=== PATIENT | female | born 1995 | race Caucasian/White ===

== ENCOUNTER 2016-03-10 19:05 | Emergency (ER) | payer MEDICAID, OTHER ==
[~2016-03-10] VITALS: Ht 167.6 cm; Wt 57.2 kg
[~2016-03-10 19:05] MED LIST: D50KC PO; IRON
--- OUTSIDE RECORDS SUMMARY | 2016-03-10 19:13 | XMS REPORT ---
Author Author THANG ROB Organization [employer] Address Unknown Phone Unavailable Care Team Providers Care Clay Washer Name Role Phone THANG ROB CP Unavailable Allergies No Known Allergies Problems Problem Type Condition Code Onset Dates Condition Status Assessment Panic disorder with agoraphobia and mild panic attacks F40.01 Active Problem Unspecified osteoporosis 733.00 Active Problem Other disorders of bone and cartilage 733.99 Active Problem Other specified symptom associated with female genital organs 625.8 Active Problem Excessive or frequent menstruation 626.2 Active Problem Panic disorder with agoraphobia and mild panic attacks F40.01 Active Problem Lumbago 724.2 Active Problem Unspecified symptom associated with female genital organs 625.9 Active Problem Disorder of bone and cartilage, unspecified 733.90 Active Problem Unspecified vitamin D deficiency 268.9 Active Medications No Known Medications Procedures Procedure Coding System Code Date Psychotherapy, patient &/family, 30 minutes, established patient CPT-4 66768 Jan 17, 2016 Results No Known Results Summary Purpose eClinicalWorks Submission
[2016-03-10] MEDS ORDERED: PREN-8 PO (19:43)
--- NOTE | 2016-03-10 20:13 | ED Abdominal Pain ---
General Chief Complaint: Abdominal/GI Problems Stated Complaint: ABD PAIN Nursing Triage Note: PT C/O LOWER ABD PAIN. PT REPORTS SHE IS 5 WEEKS . Sepsis Screen: No Definite Risk Source of Information: Patient, RN Notes Reviewed Exam Limitations: No Limitations History of Present Illness Time Seen By Provider: 20:11 Initial Comments Episodic suprapubic abdominal pain x 24 hours. Concerned because she is 5 weeks . Denies and bleeding or discharge and actually pain free presently. Timing/Duration: 24 Hours Severity/Quality: Aching Location: Suprapubic Radiation: No Radiation Activities at Onset: None Modifying Factors: Improves With Other (none) Associated Symptoms: Denies Symptoms Allergies and Home Medications Allergies Coded Allergies: Penicillins (Verified Allergy, Mild, 08/05/12) ibandronate sodium (Verified Allergy, 08/05/12) Home Medications Vit W-Ca,Fe,FA(<1 mg) 1 Each Tablet 1 EACH PO DAILY (Reported) Review of Systems Constitutional: see HPI Gastrointestinal: See HPI Abdominal Pain Genitourinary: See HPI Other (reportedly 5 weeks ) All Other Systems Reviewed Negative Unless Noted: Yes (Negative excepted noted.) Past Hkovmym-Yangwr-Efqnwv Hx Patient Social History Alcohol Use: Denies Use Recreational Drug Use: No Smoking Status: Never a Smoker Recent Foreign Travel: No Contact w/Someone Who Travel: No Recent Infectious Disease Expo: No Recent Hopitalizations: No Physical Abuse Screen: No Sexual Abuse: No Seasonal Allergies Seasonal Allergies: No Surgeries HX Surgeries: Yes (BILAT INGUINAL HERNIAS, TUBES IN EARS) Surgeries: Tonsillectomy Respiratory Hx Respiratory Disorders: No Cardiovascular Hx Cardiac Disorders: No Neurological Hx Neurological Disorders: No Reproductive System : Yes Hx : 1 Hx Reproductive Disorders: No Female Reproductive Disorders: Menstrual Problems Genitourinary Hx Genitourinary Disorders: No Gastrointestinal Hx Gastrointestinal Disorders: No Musculoskeletal Hx Musculoskeletal Disorders: No Endocrine Hx Endocrine Disorders: No HEENT HX ENT Disorders: No Cancer Hx Cancer: No Psychosocial Hx Psychiatric Problems: Yes Behavioral Health Disorders: Anxiety Integumentary HX Skin/Integumentary Disorder: No Blood Transfusions 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) Physical Exam Vital Signs VS - Last 72 Hours, by Label 03/10/16 03/10/16 19:39 22:31 Temp 99.5 99.5 Pulse 88 72 Resp 16 16 B/P 128/69 Pulse Ox 98 Capillary Refill : Less Than 3 Seconds General Appearance: WD/WN no apparent distress Respiratory: no respiratory distress Cardiovascular: regular rate, rhythm Gastrointestinal: non tender soft Rectal: deferred Neurologic/Psychiatric: no motor/sensory deficits alert normal mood/affect oriented x 3 Skin: warm/dry Progress/Results/Core Measures Results/Orders Lab Results Laboratory Tests Test 03/10/16 20:20 03/10/16 20:30 Range/Units Urine Bacteria NONE /HPF Urine Bilirubin NEGATIVE NEGATIVE Urine Casts NONE /LPF Urine Clarity CLEAR Urine Color YELLOW Urine Crystals NONE /LPF Urine Culture Indicated NO Urine Glucose (UA) NEGATIVE NEGATIVE Urine Ketones NEGATIVE NEGATIVE Urine Leukocyte Esterase NEGATIVE NEGATIVE Urine Mucus NEGATIVE /LPF Urine Nitrite NEGATIVE NEGATIVE Urine Protein NEGATIVE NEGATIVE Urine RBC NONE /HPF Urine RBC (Auto) NEGATIVE NEGATIVE Urine Specific [place] 1.010 L 1.016-1.022 Urine Squamous Epithelial Cells 0-2 /HPF Urine Urobilinogen NORMAL NORMAL MG/DL Urine WBC NONE /HPF Urine pH 6.5 5-9 Alanine Aminotransferase (ALT/SGPT) 18 0-55 U/L Albumin 4.7 H 3.2-4.5 G/DL Alkaline Phosphatase 82 40-136 U/L Anion Gap 12 5-14 MMOL/L Aspartate Amino Transf (AST/SGOT) 17 5-34 U/L BUN/Creatinine Ratio 14 Basophils # (Auto) 0.0 0.0-0.1 10^3/uL Basophils (%) (Auto) 0 0-10 % Blood Urea Nitrogen 13 7-18 MG/DL Calcium Level 9.5 8.5-10.1 MG/DL Carbon Dioxide Level 18 L 21-32 MMOL/L Chloride Level 106 98-107 MMOL/L Creatinine 0.95 0.60-1.30 MG/DL Eosinophils # (Auto) 0.1 0.0-0.3 10^3/uL Eosinophils (%) (Auto) 1 0-10 % Estimat Glomerular Filtration Rate > 60 Glucose Level 94 70-105 MG/DL Hematocrit 42 35-52 % Hemoglobin 14.4 11.5-16.0 G/DL Human Chorionic Gonadotropin, Quant 5115 H <5 MIU/ML Lymphocytes # (Auto) 1.9 1.0-4.0 X 10^3 Lymphocytes (%) (Auto) 21 12-44 % Mean Corpuscular Hemoglobin 29 25-34 PG Mean Corpuscular Hemoglobin Concent 34 32-36 G/DL Mean Corpuscular Volume 84 80-99 FL Mean Platelet Volume 11.5 H 7.4-10.4 FL Monocytes # (Auto) 0.9 0.0-1.0 X 10^3 Monocytes (%) (Auto) 9 0-12 % Neutrophils # (Auto) 6.5 1.8-7.8 X 10^3 Neutrophils (%) (Auto) 69 42-75 % Platelet Count 245 130-400 10^3/uL Potassium Level 3.7 3.6-5.0 MMOL/L Red Blood Count 4.98 4.35-5.85 10^6/uL Red Cell Distribution Width 12.9 10.0-14.5 % Sodium Level 136 135-145 MMOL/L Total Bilirubin 0.2 0.1-1.0 MG/DL Total Protein 7.6 6.4-8.2 G/DL White Blood Count 9.4 4.3-11.0 10^3/uL My Orders Orders-KEITH SOLER DO Cbc With Automated Diff (03/10/16 20:10) Comprehensive Metabolic Panel (03/10/16 20:10) Ua Culture If Indicated (03/10/16 20:10) Hcg,Quantitative (03/10/16 20:25) Us Ob<14 Wks Sngle W/Transvag (03/10/16 21:26) Vital Signs/I&O Vital Sign - Last 12Hours 03/10/16 03/10/16 19:39 22:31 Temp 99.5 99.5 Pulse 88 72 Resp 16 16 B/P 128/69 Pulse Ox 98 Blood Pressure Mean: 88 Diagnostic Imaging Diagonstic Imaging: Ultrasound Plain Films/CT/US/NM/MRI: pelvis (IUP @ 5 weeks; Nothing acute) Departure Impression Impression: Primary Impression: Abdominal pain Additional Impression: IUP @ 5 weeks Disposition: 01 HOME, SELF-CARE Condition: Stable Departure-Patient Inst. Decision time for Depature: 22:26 Referrals: [facility] (PCP/Family) Primary Care Physician Patient Instructions: Activity During KETIH SOLER DO Mar 10, 2016 20:13
[2016-03-10 20:31] LABS: BILIRUBIN,URINE NEGATIVE (NEGATIVE); KETONES,URINE NEGATIVE (NEGATIVE); LEUKOCYTE ESTERASE ,URINE NEGATIVE (NEGATIVE); NITRITE,URINE NEGATIVE (NEGATIVE); PH,URINE 6.5 (5-9); PROTEIN,URINE NEGATIVE (NEGATIVE); UROBILINOGEN,URINE NORMAL (NORMAL)
[2016-03-10 20:40] LABS: SQUAMOUS EPITHELIAL CELL,UR 0-2 /HPF
[2016-03-10 20:40] LABS: BASOPHILS % (AUTO) 0 % (0-10); EOSINOPHILS # (AUTO) 0.1 10^3/uL (0.0-0.3); EOSINOPHILS % (AUTO) 1 % (0-10); LYMPHOCYTES # (AUTO) 1.9 X 10^3 (1.0-4.0); LYMPHOCYTES % (AUTO) 21 % (12-44); MEAN CORPUSCULAR HEMOGLOBIN 29 PG (25-34); MEAN CORPUSCULAR HGB CONC 34 G/DL (32-36); MEAN CORPUSCULAR VOLUME 84 FL (80-99); MEAN PLATELET VOLUME 11.5 FL (7.4-10.4); MONOCYTES # (AUTO) 0.9 X 10^3 (0.0-1.0); MONOCYTES % (AUTO) 9 % (0-12); NEUTROPHILS # (AUTO) 6.5 X 10^3 (1.8-7.8); NEUTROPHILS % (AUTO) 69 % (42-75); PLATELET COUNT 245 10^3/uL (130-400); RED BLOOD COUNT 4.98 10^6/uL (4.35-5.85); RED CELL DISTRIBUTION WIDTH 12.9 % (10.0-14.5); WHITE BLOOD COUNT 9.4 10^3/uL (4.3-11.0)
[2016-03-10 20:56] LABS: ALANINE AMINOTRANSFERASE 18 U/L (0-55); ALBUMIN 4.7 G/DL (3.2-4.5); ANION GAP 12 MMOL/L (5-14); ASPARTATE AMINO TRANSFERASE 17 U/L (5-34); BILIRUBIN,TOTAL 0.2 MG/DL (0.1-1.0); BLOOD UREA NITROGEN 13 MG/DL (7-18); BUN/CREATININE RATIO 14; CALCIUM 9.5 MG/DL (8.5-10.1); CARBON DIOXIDE 18 MMOL/L (21-32); CHLORIDE 106 MMOL/L (98-107); CREATININE SERUM 0.95 MG/DL (0.60-1.30); GFR ESTIMATED > 60; GLUCOSE 94 MG/DL (70-105); POTASSIUM 3.7 MMOL/L (3.6-5.0); SODIUM 136 MMOL/L (135-145); TOTAL PROTEIN 7.6 G/DL (6.4-8.2)
[2016-03-10 22:31] VITALS: BP 125/64
--- NOTE | 2016-03-11 06:18 | Diagnostic Imaging Report ---
EXAM: US OB<14 WKS SNGLE W/TRANSVAG INDICATION: Lower abdominal pain and cramping. COMPARISON: None. FINDINGS: There is gestational sac with a healed sac present. No pole is identified at this time. The right ovary measures 2.8 x 1.8 x 1.9 cm and contains a couple of normal appearing follicles. The left ovary is not visualized. No adnexal masses. No free fluid. IMPRESSION: Gestational sac with a yolk sac present corresponding to a 5 week, one day intrauterine . Dictated by: Dictated on workstation # [id number]
== END 2016-03-10 22:31 | disposition home or self-care (01) ==
LOC: EDUNIT# 19:05 → ER 19:08
DX: O26.891 Other specified pregnancy related conditions, first trimester (principal); R10.84 Generalized abdominal pain; Z3A.01 Less than 8 weeks gestation of pregnancy
CPT/HCPCS: 36415; 76801; 76817; 80053; 81000; 84702; 85025

== ENCOUNTER → 2016-04-10 | Outpatient (CLI) | payer MEDICAID ==
[~2016-04-10] MED LIST changes: +PREN-8 PO; +PROM25TA14 PO
--- NOTE | 2016-04-10 16:40 | Diagnostic Imaging Report ---
INDICATION: Evaluate size and dates. COMPARISON: 03/10/2016. DISCUSSION: Transabdominal sonographic evaluation of the pelvis was performed. Single live intrauterine at 9 weeks 6 days by today's sonographic measurements. EDC by today's ultrasound is 11/07/2016. heart rate measures 155 beats per minute. [place]-rump length measures 29.17 mm. Neither ovary is visualized. No abnormal adnexal mass or fluid. IMPRESSION: 1. Single live intrauterine at 9 weeks 6 days by sonographic measurements. Dictated by: Dictated on workstation # [id number]
== END ==
LOC: RAD 15:52
PROVIDERS: ATTEND Family Medicine
DX: Z34.01 Encounter for supervision of normal first pregnancy, first trimester (principal); Z3A.09 9 weeks gestation of pregnancy
CPT/HCPCS: 76801

== ENCOUNTER 2016-04-28 13:33 | Outpatient (RCR) | payer MEDICAID, OTHER ==
[~2016-04-28 13:33] MED LIST changes: -PROM25TA14 PO
[2016-04-28 14:48] LABS: BASOPHILS % (AUTO) 0 % (0-10); EOSINOPHILS # (AUTO) 0.1 10^3/uL (0.0-0.3); EOSINOPHILS % (AUTO) 1 % (0-10); LYMPHOCYTES # (AUTO) 1.9 X 10^3 (1.0-4.0); LYMPHOCYTES % (AUTO) 22 % (12-44); MEAN CORPUSCULAR HEMOGLOBIN 29 PG (25-34); MEAN CORPUSCULAR HGB CONC 35 G/DL (32-36); MEAN CORPUSCULAR VOLUME 83 FL (80-99); MEAN PLATELET VOLUME 11.4 FL (7.4-10.4); MONOCYTES # (AUTO) 0.6 X 10^3 (0.0-1.0); MONOCYTES % (AUTO) 7 % (0-12); NEUTROPHILS # (AUTO) 5.9 X 10^3 (1.8-7.8); NEUTROPHILS % (AUTO) 70 % (42-75); PLATELET COUNT 209 10^3/uL (130-400); RED BLOOD COUNT 4.71 10^6/uL (4.35-5.85); RED CELL DISTRIBUTION WIDTH 13.6 % (10.0-14.5); WHITE BLOOD COUNT 8.4 10^3/uL (4.3-11.0)
[2016-04-28 15:06] LABS: PROTHROMBIN TIME PATIENT 12.6 SEC (12.2-14.7)
[2016-04-28 15:23] LABS: ALANINE AMINOTRANSFERASE 27 U/L (0-55); ALBUMIN 4.4 G/DL (3.2-4.5); ANION GAP 9 MMOL/L (5-14); ASPARTATE AMINO TRANSFERASE 21 U/L (5-34); BILIRUBIN,TOTAL 0.4 MG/DL (0.1-1.0); BLOOD UREA NITROGEN 6 MG/DL (7-18); BUN/CREATININE RATIO 9; CARBON DIOXIDE 23 MMOL/L (21-32); CHLORIDE 106 MMOL/L (98-107); CREATININE SERUM 0.69 MG/DL (0.60-1.30); GFR ESTIMATED > 60; GLUCOSE 96 MG/DL (70-105); POTASSIUM 3.9 MMOL/L (3.6-5.0); SODIUM 138 MMOL/L (135-145); TOTAL PROTEIN 7.1 G/DL (6.4-8.2)
[2016-05-13] MEDS ORDERED: PROM25TA14 PO (18:47)
[2016-07-27] MEDS ORDERED: CALC-823 PO (19:24)
[2016-07-27] MEDS ORDERED: ERGO400T3 PO (19:24)
== END 2016-07-27 | disposition home or self-care (01) ==
LOC: ONC 13:33
PROVIDERS: ATTEND Internal Medicine Hematology & Oncology
DX: O99.111 Other diseases of the blood and blood-forming organs and certain disorders involving the immune mechanism complicating pregnancy, first trimester (principal); D69.1 Qualitative platelet defects; Z3A.12 12 weeks gestation of pregnancy
CPT/HCPCS: 36415; 80053; 82306; 82728; 83540; 85002; 85025; 85610; 85730; 99214

== ENCOUNTER 2016-05-13 16:50 | Emergency (ER) | payer MEDICAID ==
[~2016-05-13] VITALS: Ht 167.6 cm; Wt 56.7 kg
[2016-05-13] MEDS ORDERED: diphenhydrAMINE 50 MG/ML INJ (BENADRYL) IVP ONE (17:30)
[2016-05-13] MEDS ORDERED: PROCHLORPERAZINE 10 MG/2ML INJ (COMPAZINE) IV ONE (17:30)
[2016-05-13] MEDS ORDERED: NS IV 1000 ML 1,000 ML IV SCH (17:30)
--- NOTE | 2016-05-13 17:36 | ED Headache ---
General Chief Complaint: Head/Cervical Problems Stated Complaint: HEADACHE Nursing Triage Note: PT REPORTS MIGRAINE ACCOMPANIED BY N/V SINCE THURSDAY. PT REPORTS SHE IS 14 WEEKS . SHE STATES SHE HAS BEEN TAKING TYLENOL, LAST DOSE AT 1600. Nursing Sepsis Screen: No Definite Risk Source: patient (TONE CARRILLO MD) History of Present Illness Time seen by provider: 17:33 Initial Comments The patient is a 21-year-old white female who is 14 weeks . She reports that she has had migraines in the past. Today she has a pain localized in the forehead above the right eye. There is no photophobia. She reports she normally doesn't have nausea but does so today. Timing/Duration: 1 week Severity/Quality: moderate Location: frontal Prior Headaches/Recent Trauma: occasional headaches Associated Symptoms: nausea/vomiting (TONE CARRILLO MD) Allergies and Home Medications Allergies Coded Allergies: Penicillins (Verified Allergy, Mild, 08/05/12) ibandronate sodium (Verified Allergy, 08/05/12) Home Medications Vit W-Ca,Fe,FA(<1 mg) 1 Each Tablet 1 EACH PO DAILY (Reported) Constitutional: see HPI Eyes: No Symptoms Reported Ears, Nose, Mouth, Throat: no symptoms reported Respiratory: no symptoms reported Cardiovascular: no symptoms reported Gastrointestinal: no symptoms reported Genitourinary: no symptoms reported Musculoskeletal: no symptoms reported Skin: no symptoms reported Psychiatric/Neurological: No Symptoms Reported (TONE CARRILLO MD) Past Ricfjvy-Lvgfou-Lmcoae Hx Patient Social History Alcohol Use: Denies Use Recreational Drug Use: No Smoking Status: Never a Smoker 2nd Hand Smoke Exposure: No Recent Foreign Travel: No Contact w/Someone Who Travel: No Recent Infectious Disease Expo: No Recent Hopitalizations: No (TONE CARRILLO MD) Seasonal Allergies Seasonal Allergies: No (TONE CARRILLO MD) Surgeries HX Surgeries: Yes (BILAT INGUINAL HERNIAS, TUBES IN EARS) Surgeries: Tonsillectomy (TONE CARRILLO MD) Respiratory Hx Respiratory Disorders: No (TONE CARRILLO MD) Cardiovascular Hx Cardiac Disorders: No (TONE CARRILLO MD) Neurological Hx Neurological Disorders: No (TONE CARRILLO MD) Reproductive System Hx Reproductive Disorders: No Female Reproductive Disorders: Menstrual Problems (TONE CARRILLO MD) Genitourinary Hx Genitourinary Disorders: No (TONE CARRILLO MD) Gastrointestinal Hx Gastrointestinal Disorders: No (TONE CARRILLO MD) Musculoskeletal Hx Musculoskeletal Disorders: No (TONE CARRILLO MD) Endocrine Hx Endocrine Disorders: No (TONE CARRILLO MD) HEENT HX ENT Disorders: No (TONE CARRILLO MD) Cancer Hx Cancer: No (TONE CARRILLO MD) Psychosocial Hx Psychiatric Problems: Yes Behavioral Health Disorders: Anxiety (TONE CARRILLO MD) Integumentary HX Skin/Integumentary Disorder: No (TONE CARRILLO MD) Blood Transfusions 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) (TONE CARRILLO MD) Physical Exam Vital Signs Vital Sign - Last 12Hours 05/13/16 17:17 Temp 98.4 Pulse 70 Resp 18 B/P 128/74 Pulse Ox 99 O2 Delivery Room Air (JARRETT FRIEDMAN MD) Vital Signs Capillary Refill : Less Than 3 Seconds (TONE CARRILLO MD) General Appearance: mild distress HEENT: normal ENT inspection Cardiovascular: normal peripheral pulses regular rate, rhythm no edema no gallop no JVD no murmur Respiratory: chest non-tender lungs clear normal breath sounds no respiratory distress no accessory muscle use Gastrointestinal: normal bowel sounds non tender soft no organomegaly no pulsatile mass Back: normal inspection no CVA tenderness no vertebral tenderness Extremities: normal range of motion non-tender normal inspection no pedal edema no calf tenderness normal capillary refill pelvis stable Psychiatric: alert oriented x 3 Crainal Nerves: normal hearing normal speech PERRL Coordination/Gait: normal finger to nose normal gait Motor/Sensory: no motor deficit no sensory deficit no pronator drift negative Babinski's sign Skin: normal color warm/dry Lymphatic: no adenopathy (TONE CARRILLO MD) Progress/Results/Core Measures Results/Orders Lab Results Laboratory Tests Test 05/13/16 15:50 Range/Units Alanine Aminotransferase (ALT/SGPT) 33 0-55 U/L Albumin 4.2 3.2-4.5 G/DL Alkaline Phosphatase 52 40-136 U/L Anion Gap 13 5-14 MMOL/L Aspartate Amino Transf (AST/SGOT) 25 5-34 U/L BUN/Creatinine Ratio 9 Basophils # (Auto) 0.0 0.0-0.1 10^3/uL Basophils (%) (Auto) 0 0-10 % Blood Urea Nitrogen 6 L 7-18 MG/DL Calcium Level 9.5 8.5-10.1 MG/DL Carbon Dioxide Level 20 L 21-32 MMOL/L Chloride Level 105 98-107 MMOL/L Creatinine 0.68 0.60-1.30 MG/DL Eosinophils # (Auto) 0.1 0.0-0.3 10^3/uL Eosinophils (%) (Auto) 1 0-10 % Estimat Glomerular Filtration Rate > 60 Glucose Level 84 70-105 MG/DL Hematocrit 41 35-52 % Hemoglobin 14.4 11.5-16.0 G/DL Lymphocytes # (Auto) 1.2 1.0-4.0 X 10^3 Lymphocytes (%) (Auto) 13 12-44 % Mean Corpuscular Hemoglobin 30 25-34 PG Mean Corpuscular Hemoglobin Concent 35 32-36 G/DL Mean Corpuscular Volume 84 80-99 FL Mean Platelet Volume 11.4 H 7.4-10.4 FL Monocytes # (Auto) 0.6 0.0-1.0 X 10^3 Monocytes (%) (Auto) 6 0-12 % Neutrophils # (Auto) 7.5 1.8-7.8 X 10^3 Neutrophils (%) (Auto) 80 H 42-75 % Platelet Count 193 130-400 10^3/uL Potassium Level 3.8 3.6-5.0 MMOL/L Red Blood Count 4.88 4.35-5.85 10^6/uL Red Cell Distribution Width 13.4 10.0-14.5 % Sodium Level 138 135-145 MMOL/L Total Bilirubin 0.5 0.1-1.0 MG/DL Total Protein 7.3 6.4-8.2 G/DL White Blood Count 9.3 4.3-11.0 10^3/uL (JARRETT FRIEDMAN MD) Medications Given in ED Current Medications Medications Dose Ordered Sig/Kraig Route Start Time Stop Time Status Last Admin Dose Admin Diphenhydramine HCl 25 mg ONCE ONCE IVP 05/13/16 17:30 05/13/16 17:31 DC 05/13/16 18:00 25 MG Prochlorperazine Edisylate 5 mg ONCE ONCE IV 05/13/16 17:30 3/7/17 17:31 DC 05/13/16 18:00 5 MG (JARRETT FRIEDMAN MD) Vital Signs/I&O Vital Sign - Last 12Hours 05/13/16 17:17 Temp 98.4 Pulse 70 Resp 18 B/P 128/74 Pulse Ox 99 O2 Delivery Room Air (JARRETT FRIEDMAN MD) Blood Pressure Mean: 92 Progress Note : Time: 18:44 Progress Note Patient is feeling markedly improved after treatment. IV fluids are nearly complete. labs are unremarkable. Plan is for dismissal home with a prescription of Phenergan. (JARRETT FRIEDMAN MD) Departure Impression Impression: Primary Impression: Migraine headache Qualified Code: G43.909 - Migraine, unspecified, not intractable, without status migrainosus Additional Impressions: Nausea headache in first trimester Disposition: HOME, SELF-CARE Condition: Improved Departure-Patient Inst. Decision time for Depature: 18:46 (JARRETT FRIEDMAN MD) Referrals: ISAAK STEPHEN MD (PCP/Family) Primary Care Physician Patient Instructions: Migraine Headache (DC) Add. Discharge Instructions: Drink plenty of clear liquids. You may continue taking Tylenol for headaches. Rest in a quiet, calm environment for the remainder of the evening. Use Phenergan (promethazine) as prescribed for nausea. Return to care if symptoms worsen. All discharge instructions reviewed with patient and/or family. Voiced understanding. Scripts Promethazine HCl (Promethazine Tablet)25 Mg [id number] Mg PO Q6H PRN NAUSEA/ VOMITING #10 TAB Prov:JARRETT FRIEDMAN MD 05/13/16 TONE CARRILLO MD May 13, 2016 17:36 JARRETT FRIEDMAN MD May 13, 2016 18:48
[2016-05-13 18:17] LABS: BASOPHILS % (AUTO) 0 % (0-10); EOSINOPHILS # (AUTO) 0.1 10^3/uL (0.0-0.3); EOSINOPHILS % (AUTO) 1 % (0-10); LYMPHOCYTES # (AUTO) 1.2 X 10^3 (1.0-4.0); LYMPHOCYTES % (AUTO) 13 % (12-44); MEAN CORPUSCULAR HEMOGLOBIN 30 PG (25-34); MEAN CORPUSCULAR HGB CONC 35 G/DL (32-36); MEAN CORPUSCULAR VOLUME 84 FL (80-99); MEAN PLATELET VOLUME 11.4 FL (7.4-10.4); MONOCYTES # (AUTO) 0.6 X 10^3 (0.0-1.0); MONOCYTES % (AUTO) 6 % (0-12); NEUTROPHILS # (AUTO) 7.5 X 10^3 (1.8-7.8); NEUTROPHILS % (AUTO) 80 % (42-75); PLATELET COUNT 193 10^3/uL (130-400); RED BLOOD COUNT 4.88 10^6/uL (4.35-5.85); RED CELL DISTRIBUTION WIDTH 13.4 % (10.0-14.5); WHITE BLOOD COUNT 9.3 10^3/uL (4.3-11.0)
[2016-05-13 18:40] LABS: ALANINE AMINOTRANSFERASE 33 U/L (0-55); ALBUMIN 4.2 G/DL (3.2-4.5); ANION GAP 13 MMOL/L (5-14); ASPARTATE AMINO TRANSFERASE 25 U/L (5-34); BILIRUBIN,TOTAL 0.5 MG/DL (0.1-1.0); BLOOD UREA NITROGEN 6 MG/DL (7-18); BUN/CREATININE RATIO 9; CALCIUM 9.5 MG/DL (8.5-10.1); CARBON DIOXIDE 20 MMOL/L (21-32); CHLORIDE 105 MMOL/L (98-107); CREATININE SERUM 0.68 MG/DL (0.60-1.30); GFR ESTIMATED > 60; GLUCOSE 84 MG/DL (70-105); POTASSIUM 3.8 MMOL/L (3.6-5.0); SODIUM 138 MMOL/L (135-145); TOTAL PROTEIN 7.3 G/DL (6.4-8.2)
[2016-05-13] MEDS ORDERED: PROM25TA14 PO (18:47)
[2016-05-13 18:58] VITALS: BP 128/74
== END 2016-05-13 18:58 | disposition home or self-care (01) ==
LOC: EDUNIT# 16:50 → ER 16:52
DX: G43.909 Migraine, unspecified, not intractable, without status migrainosus (principal); Z3A.14 14 weeks gestation of pregnancy
CPT/HCPCS: 36415; 80053; 85025; 96361; 96374; 96375

== ENCOUNTER → 2016-06-27 | Outpatient (CLI) | payer MEDICAID ==
[~2016-06-27] MED LIST changes: +PROM25TA14 PO
--- NOTE | 2016-06-27 16:28 | Diagnostic Imaging Report ---
INDICATION: survey. FINDINGS: There is a single live intrauterine fetus. Fetus is currently vertex and active. heart rate of 146 beats per minute. The amniotic fluid index is normal. Placenta is anterior and not low. Cervical length of 3.8 cm. anatomical survey was somewhat limited due to position. The spine was not well surveyed. Also umbilical cord insertion was not visualized. Three-vessel cord is present. Biometric measurements are BPD 4.68 cm, head circumference 18.14 cm, abdominal circumference 15.14 cm, and femur length 3.5 cm. Estimated weight of 368 g. IMPRESSION: A 21 weeks live intrauterine by previous ultrasound. There has been normal growth in the interim. No abnormalities are demonstrated however limited imaging of the spine and cord insertion, as described above. Dictated by: Dictated on workstation # [id number]
== END ==
LOC: RAD 14:56
PROVIDERS: ATTEND Obstetrics & Gynecology
DX: Z36 Encounter for antenatal screening of mother (principal)
CPT/HCPCS: 76805; 76817

== ENCOUNTER 2016-07-27 17:55 | Outpatient (CLI) | payer MEDICAID ==
[~2016-07-27] VITALS: Ht 165.1 cm; Wt 61.5 kg
[2016-07-27] MEDS ORDERED: CITRIC ACID/SOB CIT (BICITRA) 30 ML UDC ONE (18:48)
[2016-07-27] MEDS ORDERED: CITRIC ACID/SOB CIT (BICITRA) 30 ML UDC PO ONE (19:00)
[2016-07-27 19:19] LABS: BILIRUBIN,URINE NEGATIVE (NEGATIVE); KETONES,URINE NEGATIVE (NEGATIVE); LEUKOCYTE ESTERASE ,URINE 1+ (NEGATIVE); NITRITE,URINE NEGATIVE (NEGATIVE); PH,URINE 7 (5-9); PROTEIN,URINE NEGATIVE (NEGATIVE); UROBILINOGEN,URINE NORMAL (NORMAL)
[2016-07-27] MEDS ORDERED: CALC-823 PO (19:24)
[2016-07-27] MEDS ORDERED: ERGO400T3 PO (19:24)
[2016-07-27 19:35] LABS: BASOPHILS % (AUTO) 0 % (0-10); EOSINOPHILS % (AUTO) 0 % (0-10); LYMPHOCYTES # (AUTO) 1.2 X 10^3 (1.0-4.0); LYMPHOCYTES % (AUTO) 8 % (12-44); MEAN CORPUSCULAR HEMOGLOBIN 30 PG (25-34); MEAN CORPUSCULAR HGB CONC 34 G/DL (32-36); MEAN CORPUSCULAR VOLUME 89 FL (80-99); MEAN PLATELET VOLUME 11.4 FL (7.4-10.4); MONOCYTES # (AUTO) 0.8 X 10^3 (0.0-1.0); MONOCYTES % (AUTO) 5 % (0-12); NEUTROPHILS # (AUTO) 14.4 X 10^3 (1.8-7.8); NEUTROPHILS % (AUTO) 88 % (42-75); PLATELET COUNT 182 10^3/uL (130-400); RED BLOOD COUNT 4.68 10^6/uL (4.35-5.85); RED CELL DISTRIBUTION WIDTH 12.8 % (10.0-14.5); WHITE BLOOD COUNT 16.4 10^3/uL (4.3-11.0)
[2016-07-27 19:48] LABS: BAND NEUTROPHILS 18 %; BASOPHILS % (MANUAL) 0 %; EOSINOPHILS % (MANUAL) 0 %; LYMPHOCYTES % (MANUAL) 8 %; METAMYELOCYTES % 1 %; NEUTROPHILS % (MANUAL) 71 %
--- NOTE | 2016-07-28 11:53 | Physician Query-Final Dx ---
KARENA NIX 07/28/16 1153: Clinic Account Progress/Dx Physician Query: Please give diagnosis Date of Service July 27, 2016 at 17:55 HORTENSIA JAIN MD 07/29/16 0609: Clinic Account Progress/Dx DIAGNOSIS: Diagnosis GERD KARENA NIX July 28, 2016 11:53 HORTENSIA JAIN MD July 29, 2016 06:09
== END 2016-07-27 19:59 | disposition home or self-care (01) ==
LOC: WSo 17:55 → LDRP 17:55 → WSo 19:59
PROVIDERS: ATTEND Obstetrics & Gynecology
DX: O99.612 Diseases of the digestive system complicating pregnancy, second trimester (principal); K21.9 Gastro-esophageal reflux disease without esophagitis; Z3A.25 25 weeks gestation of pregnancy
CPT/HCPCS: 36415; 81000; 85007; 85027; 87088; 99214

== ENCOUNTER → 2016-08-08 | Outpatient (CLI) | payer MEDICAID ==
[~2016-08-08] MED LIST changes: +CALC-823 PO; +ERGO400T3 PO
--- NOTE | 2016-08-08 15:21 | Diagnostic Imaging Report ---
INDICATION: Followup spine and cord insertion. TECHNIQUE: Multiple real-time grayscale images were obtained over the gravid uterus. COMPARISON: 06/27/2016. FINDINGS: Transabdominal sonographic evaluation of the gravid uterus was performed. Single live intrauterine is again demonstrated. Gestational age by the first ultrasound is 29 weeks 0 days. EDC is 11/07/2016. presentation is breech. Normal amniotic fluid index. Grade 1 placenta is located anteriorly with no placenta previa. heart rate measures 135 beats per minute. Good visualization of the umbilical cord insertion on today's exam. The entire spine is still not well visualized due to positioning. Recommend continued short-term sonographic followup. gender is female. IMPRESSION: Single live intrauterine . There was good visualization of the cord insertion on today's exam which appears within normal limits. Full visualization of the spine is still limited due to positioning. Recommend continued sonographic followup. Dictated by: Dictated on workstation # [id number]
== END ==
LOC: RAD 12:51
PROVIDERS: ATTEND Obstetrics & Gynecology
DX: Z36 Encounter for antenatal screening of mother (principal); Z3A.29 29 weeks gestation of pregnancy
CPT/HCPCS: 76816

== ENCOUNTER → 2016-08-22 | Outpatient (CLI) | payer MEDICAID ==
--- NOTE | 2016-08-22 13:18 | Diagnostic Imaging Report ---
INDICATION: Followup for survey of spine. TECHNIQUE: Multiple real-time grayscale images were obtained over the gravid uterus. COMPARISON: 08/08/2016 FINDINGS: There is a single live intrauterine fetus present. The fetus is vertex. Placenta remains anterior and not low. Amniotic fluid index is 10 cm. heart rate of 142 beats per minute. Limited survey was performed. spine is well-visualized with the fetus currently in a prone position. IMPRESSION: 1. Single live intrauterine fetus in vertex presentation. 2. The spine is well visualized today and appears normal. Dictated by: Dictated on workstation # [id number]
== END ==
LOC: RAD 12:36
PROVIDERS: ATTEND Obstetrics & Gynecology
DX: Z36 Encounter for antenatal screening of mother (principal); Z3A.00 Weeks of gestation of pregnancy not specified
CPT/HCPCS: 76816

== ENCOUNTER 2016-11-06 19:02 | Inpatient (IN) | payer MEDICAID ==
[2016-11-06] VITALS (9 sets, daily range): BP systolic 101–132; BP diastolic 55–82
[~2016-11-06] VITALS: Ht 165.1 cm; Wt 73.7 kg
--- OUTSIDE RECORDS SUMMARY | 2016-11-06 19:07 | XMS REPORT ---
Author Author THANG ROB Organization [employer] Address Unknown Phone Unavailable Care Team Providers Care Photography Colorist Name Role Phone THANG ROB CP Unavailable [...] patient &/family, 30 minutes, established patient CPT-4 16172 Jan 17, 2016 Results No Known Results Summary Purpose [employer] Submission
--- OUTSIDE RECORDS SUMMARY | 2016-11-06 19:08 | XMS REPORT ---
Author Author THANG ROB Organization [facility] Address [address] [place] [address] Care Team Providers Care Goggles Assembler Name Role Phone THANG ROB Unavailable PROBLEMS Type Condition ICD9-CM Code [id number] Code Onset Dates Condition Status SNOMED Code Problem Other disorders of bone and cartilage 733.99 Active 52101638 Problem Unspecified symptom associated with female genital organs 625.9 Active 002490714 Problem Unspecified osteoporosis 733.00 Active 96877061 Assessment Panic disorder with agoraphobia and mild panic attacks F40.01 Nov, Active 00461147 Problem Panic disorder with agoraphobia and mild panic attacks F40.01 Active 41221873 Problem Other specified symptom associated with female genital organs 625.8 Active Problem Unspecified vitamin D deficiency 268.9 Active 25083431 Problem Lumbago 724.2 Active 495608980 Problem Excessive or frequent menstruation 626.2 Active 904630313 Problem Disorder of bone and cartilage, unspecified 733.90 Active 23977619 ALLERGIES Unknown Allergies SOCIAL HISTORY No smoking Hx information available PLAN OF CARE VITAL SIGNS MEDICATIONS Unknown Medications RESULTS No Results PROCEDURES Procedure Date Ordered Related Diagnosis Body Site Psychotherapy, patient &/family, 45 minutes, established patient Nov 19, 2015 IMMUNIZATIONS No Known Immunizations
--- OUTSIDE RECORDS SUMMARY | 2016-11-06 19:08 | XMS REPORT ---
Author Author CARMELA LATHAM [facility] [employer] Address Unknown Phone Unavailable Care Team Providers Care Mail Rider Name Role Phone CARMELA LATHAM CP Unavailable Allergies, Adverse Reactions, Alerts Substance Reaction Event Type Penicillin V Potassium Info Not Available Drug Allergy Boniva Info Not Available Drug Allergy Problems Problem Type Condition Code Onset Dates Condition Status Problem Lumbago 724.2 Active Problem Disorder of bone and cartilage, unspecified 733.90 Active Problem Unspecified vitamin D deficiency 268.9 Active Problem Panic disorder F41.0 Active Problem Agoraphobia F40.00 Active Problem Panic disorder with agoraphobia and mild panic attacks F40.01 Active Problem Excessive or frequent menstruation 626.2 Active Problem Anxiety state, unspecified 300.00 Active Problem Generalized anxiety disorder F41.1 Active Problem Other specified symptom associated with female genital organs 625.8 Active Assessment Panic disorder with agoraphobia and mild panic attacks F40.01 Active Problem Other disorders of bone and cartilage 733.99 Active Problem Unspecified osteoporosis 733.00 Active Problem Unspecified symptom associated with female genital organs 625.9 Active Medications Medication Code System Code Instructions Start Date End Date Status Dosage Vitamin D [facility] [address]-25 1000 UNIT Orally Once a day 1 tablet Propranolol HCl [facility] [address]-18 10 mg Orally Once a day PRN September 28, 2015 0.5 tablet Calcium [facility] 86853-68569 600 MG Orally Once a day 1 tablet with meals Procedures Procedure Coding System Code Date Office Visit, New Pt., Level 5 CPT-4 66185 September 28, 2015 Vital Signs Date/Time: September 28, 2015 Cardiac Monitoring Heart Rate 82 bpm Weight 123.7 lbs Height 65 in Blood Pressure Diastolic 72 mmHg Blood Pressure Systolic 126 mmHg Results No Known Results Summary Purpose eClinicalWorks Submission
--- OUTSIDE RECORDS SUMMARY | 2016-11-06 19:08 | XMS REPORT ---
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 23447724 Problem Unspecified osteoporosis 733.00 Active 53029385 Problem Migraine without status migrainosus, not intractable, unspecified migraine type G43.909 Active 31243402 Problem Panic disorder with agoraphobia and mild panic attacks F40.01 Active 01672664 ALLERGIES Unknown Allergies SOCIAL HISTORY No smoking Hx information available PLAN OF CARE Activity Details Follow Up 2 Weeks Reason:anxiety VITAL SIGNS MEDICATIONS Unknown Medications RESULTS No Results PROCEDURES Procedure Date Ordered Related Diagnosis Body Site Psychotherapy, patient &/family, 30 minutes, established patient Mar 12, 2016 IMMUNIZATIONS No Known Immunizations
--- OUTSIDE RECORDS SUMMARY | 2016-11-06 19:08 | XMS REPORT ---
Author Author THANG ROB Organization [facility] Address [address] [place] [address] Care Team Providers Care Chin Strap Maker Name Role Phone THANG RBO Unavailable PROBLEMS Type Condition ICD9-CM Code [id number] Code Onset Dates Condition Status SNOMED Code Problem Other disorders of bone and cartilage 733.99 Active 65868766 Problem Unspecified symptom associated with female genital organs 625.9 Active 251212586 Problem Unspecified osteoporosis 733.00 Active 04148467 Assessment Panic disorder with agoraphobia and mild panic attacks F40.01 Feb, Active 22365563 Problem Panic disorder with agoraphobia and mild panic attacks F40.01 Active 92269154 Problem Other specified symptom associated with female genital organs 625.8 Active Problem Unspecified vitamin D deficiency 268.9 Active 84742500 Problem Lumbago 724.2 Active 135317296 Problem Excessive or frequent menstruation 626.2 Active 164834912 Problem Disorder of bone and cartilage, unspecified 733.90 Active 54491202 ALLERGIES Unknown Allergies SOCIAL HISTORY No smoking Hx information available PLAN OF CARE VITAL SIGNS MEDICATIONS Unknown Medications RESULTS No Results PROCEDURES Procedure Date Ordered Related Diagnosis Body Site Psychotherapy, patient &/family, 45 minutes, established patient Feb 14, 2016 IMMUNIZATIONS No Known Immunizations
--- OUTSIDE RECORDS SUMMARY | 2016-11-06 19:08 | XMS REPORT ---
Author Author CARMELA LATHAM Organization [employer] Address Unknown Phone Unavailable Care Team Providers Care Field Appraiser Name Role Phone CARMELA LATHAM CP Unavailable [...] Unspecified vitamin D deficiency 268.9 Active Medications Medication Code System Code Instructions Start Date End Date Status Dosage Vistaril [facility] [address]-07 25 MG Orally every 8 hrs 1 capsule as needed Vitamin D [facility] [address]-09 1000 UNIT Orally Once a day 1 tablet Propranolol HCl [facility] [address]-32 10 mg Orally Once a day PRN September 28, 2015 0.5 tablet Florajen3 [facility] [address]6950-08285 - Orally not defined Calcium [facility] 33555-68633 600 MG Orally Once a day 1 tablet with meals Procedures Procedure Coding System Code Date Office Visit, Est Pt., Level 2 CPT-4 63451 Oct 31, 2015 Vital Signs Date/Time: Oct 31, 2015 Cardiac Monitoring Heart Rate 80 bpm Weight 126.9 lbs Height 65 in BMI 21.11 Index Blood Pressure Diastolic 64 mmHg Blood Pressure Systolic 122 mmHg Results No Known Results Summary Purpose [employer] Submission
--- OUTSIDE RECORDS SUMMARY | 2016-11-06 19:08 | XMS REPORT ---
Author Author CAMILA JUÁREZ [facility] [employer] Address Unknown Phone Unavailable Care Team Providers Care Conveyor Line Bakery Worker Name Role Phone CAMILA JUÁREZ Unavailable Allergies No Known Allergies Problems Problem Type Condition ICD-9 Code Onset Dates Condition Status Assessment Generalized anxiety disorder 300.02 Active Problem Unspecified osteoporosis 733.00 Active Problem Other disorders of bone and cartilage 733.99 Active Problem Excessive or frequent menstruation 626.2 Active Problem Anxiety state, unspecified 300.00 Active Problem Other specified symptom associated with female genital organs 625.8 Active Problem Lumbago 724.2 Active Problem Unspecified symptom associated with female genital organs 625.9 Active Problem Disorder of bone and cartilage, unspecified 733.90 Active Problem Unspecified vitamin D deficiency 268.9 Active Medications No Known Medications Procedures Procedure Coding System Code Date Psychotherapy, patient &/family, 45 minutes, established patient CPT-4 97042 Oct 24, 2014 Results No Known Results Summary Purpose [employer] Submission
--- OUTSIDE RECORDS SUMMARY | 2016-11-06 19:08 | XMS REPORT ---
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
--- OUTSIDE RECORDS SUMMARY | 2016-11-06 19:09 | XMS REPORT ---
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
--- OUTSIDE RECORDS SUMMARY | 2016-11-06 19:09 | XMS REPORT ---
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 17459568 Problem Unspecified osteoporosis 733.00 Active 98854982 Problem Migraine without status migrainosus, not intractable, unspecified migraine type G43.909 Active 47873478 Problem Panic disorder with agoraphobia and mild panic attacks F40.01 Active 41543457 ALLERGIES Substance Reaction Event Type Date Status Penicillin V Potassium Unknown Drug Allergy Feb, Active Boniva Unknown Drug Allergy Feb, Active SOCIAL HISTORY No smoking Hx information available PLAN OF CARE VITAL SIGNS MEDICATIONS Medication Instructions Dosage Frequency Start Date End Date Duration Status Vitamin 27-0.8 MG Active RESULTS No Results PROCEDURES No Known procedures IMMUNIZATIONS No Known Immunizations
--- OUTSIDE RECORDS SUMMARY | 2016-11-06 19:09 | XMS REPORT ---
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 61081300 Problem Unspecified osteoporosis 733.00 Active 99628758 Problem Migraine without status migrainosus, not intractable, unspecified migraine type G43.909 Active 80365499 Problem Panic disorder with agoraphobia and mild panic attacks F40.01 Active 89771694 ALLERGIES Unknown Allergies SOCIAL HISTORY No smoking Hx information available PLAN OF CARE Activity Details Follow Up Next available Reason:anxiety VITAL SIGNS MEDICATIONS Unknown Medications RESULTS No Results PROCEDURES Procedure Date Ordered Related Diagnosis Body Site Psychotherapy, patient &/family, 45 minutes, established patient Feb 26, 2016 IMMUNIZATIONS No Known Immunizations
--- OUTSIDE RECORDS SUMMARY | 2016-11-06 19:09 | XMS REPORT ---
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 67589563 Problem Unspecified osteoporosis 733.00 Active 54158078 Problem Migraine without status migrainosus, not intractable, unspecified migraine type G43.909 Active 92114719 Problem Panic disorder with agoraphobia and mild panic attacks F40.01 Active 36201404 ALLERGIES Unknown Allergies SOCIAL HISTORY No smoking Hx information available PLAN OF CARE VITAL SIGNS MEDICATIONS Unknown Medications RESULTS Name Result Date Reference Range TEST, URINE (IN HOUSE) 2016-03-06 RESULTS POSITIVE Lot # [id number] Control + Exp date PROCEDURES Procedure Date Ordered Related Diagnosis Body Site URINE TEST Mar 06, 2016 IMMUNIZATIONS No Known Immunizations
--- OUTSIDE RECORDS SUMMARY | 2016-11-06 19:09 | XMS REPORT ---
Author Author THANG ROB Organization [facility] Address [address] [place] [address] Care Team Providers Care Outside Plant Technician Name Role Phone THANG ROB Unavailable PROBLEMS Type Condition ICD9-CM Code FQV14-EL Code Onset Dates Condition Status SNOMED Code Problem Other disorders of bone and cartilage 733.99 Active 77170355 Problem Unspecified symptom associated with female genital organs 625.9 Active 529303800 Problem Unspecified osteoporosis 733.00 Active 76228468 Assessment Panic disorder with agoraphobia and mild panic attacks F40.01 Nov, Active 12529968 Problem Panic disorder with agoraphobia and mild panic attacks F40.01 Active 22797723 Problem Other specified symptom associated with female genital organs 625.8 Active Problem Unspecified vitamin D deficiency 268.9 Active 78636912 Problem Lumbago 724.2 Active 385255503 Problem Excessive or frequent menstruation 626.2 Active 737197978 Problem Disorder of bone and cartilage, unspecified 733.90 Active 14009471 ALLERGIES Unknown Allergies SOCIAL HISTORY No smoking Hx information available PLAN OF CARE VITAL SIGNS MEDICATIONS Unknown Medications RESULTS No Results PROCEDURES Procedure Date Ordered Related Diagnosis Body Site Psychotherapy, patient &/family, 30 minutes, established patient Nov 26, 2015 IMMUNIZATIONS No Known Immunizations
--- OUTSIDE RECORDS SUMMARY | 2016-11-06 19:09 | XMS REPORT ---
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 56784907 Problem Unspecified osteoporosis 733.00 Active 71094381 Problem Migraine without status migrainosus, not intractable, unspecified migraine type G43.909 Active 31582933 Problem Panic disorder with agoraphobia and mild panic attacks F40.01 Active 41074036 ALLERGIES Unknown Allergies SOCIAL HISTORY No smoking Hx information available PLAN OF CARE Activity Details Follow Up 2 Months Reason: VITAL SIGNS Height 65 in 2016-03-04 Weight 129 lbs 2016-03-04 Heart Rate 80 bpm 2016-03-04 Respiratory Rate 20 2016-03-04 BMI 21.46 kg/m2 2016-03-04 Blood pressure systolic 110 mmHg 2016-03-04 Blood pressure diastolic 70 mmHg 2016-03-04 MEDICATIONS Medication Instructions Dosage Frequency Start Date End Date Duration Status Calcium 600 MG Orally Once a day 1 tablet with meals 24h Active Propranolol HCl 10 mg Orally Once a day PRN 0.5 tablet Active HydrOXYzine HCl 10 mg Orally every 8 hours, PRN 1 tablet as needed Feb Active Florajen3 - Active Vitamin D 1000 UNIT Orally Once a day 1 tablet 24h Active Triamcinolone Acetonide 0.1 % Externally Twice a day 1 application to affected area 12h Nov, 5 days Active Ibuprofen 400 MG Orally Three times a day 1 tablet 8h Active Vistaril 25 MG Orally every 8 hrs 1 capsule as needed 8h Active RESULTS No Results PROCEDURES Procedure Date Ordered Related Diagnosis Body Site MH Office Visit, Est Pt., Level 2 Mar 04, 2016 IMMUNIZATIONS No Known Immunizations
--- OUTSIDE RECORDS SUMMARY | 2016-11-06 19:09 | XMS REPORT ---
Author Author THANG ROB Organization [employer] Address Unknown Phone Unavailable Care Team Providers Care Banquet Supervisor Name Role Phone THANG ROB CP Unavailable [...] patient &/family, 30 minutes, established patient CPT-4 92301 Dec 17, 2015 Results No Known Results Summary Purpose [employer] Submission
--- OUTSIDE RECORDS SUMMARY | 2016-11-06 19:09 | XMS REPORT ---
Author Author THANG ROB Organization [employer] Address Unknown Phone Unavailable Care Team Providers Care Graphic Arts Technician Name Role Phone THANG ROB CP Unavailable Allergies No Known Allergies Problems Problem Type Condition Code Onset Dates Condition Status Problem Unspecified symptom associated with female genital organs 625.9 Active Problem Unspecified vitamin D deficiency 268.9 Active Problem Lumbago 724.2 Active Problem Agoraphobia F40.00 Active Problem Generalized anxiety disorder F41.1 Active Problem Panic disorder F41.0 Active Problem Anxiety state, unspecified 300.00 Active Problem Disorder of bone and cartilage, unspecified 733.90 Active Problem Other specified symptom associated with female genital organs 625.8 Active Problem Excessive or frequent menstruation 626.2 Active Assessment Agoraphobia F40.00 Active Assessment Panic disorder F41.0 Active Problem Other disorders of bone and cartilage 733.99 Active Assessment Generalized anxiety disorder F41.1 Active Problem Unspecified osteoporosis 733.00 Active Medications No Known Medications Procedures Procedure Coding System Code Date Psychotherapy, patient &/family, 30 minutes, established patient CPT-4 16952 September 24, 2015 Results No Known Results Summary Purpose [employer] Submission
--- OUTSIDE RECORDS SUMMARY | 2016-11-06 19:09 | XMS REPORT ---
Author Author BRIDGETT HIGH [facility] [employer] Address Unknown Phone Unavailable Care Team Providers Care Rail Switchman Name Role Phone BRIDGETT HIGH CP Unavailable Allergies, Adverse Reactions, Alerts Substance Reaction Event Type Penicillin V Potassium Info Not Available Drug Allergy Boniva Info Not Available Drug Allergy Problems Problem Type Condition Code Onset Dates Condition Status Assessment Bug bite, initial encounter W57.XXXA Active Problem Unspecified osteoporosis 733.00 Active Problem [...] Start Date End Date Status Dosage Vistaril [facility] [address]-20 25 MG Orally every 8 hrs 1 capsule as needed Vitamin D [facility] [address]-90 1000 UNIT Orally Once a day 1 tablet Triamcinolone Acetonide [facility] [address]-71 0.1 % Externally Twice a day Dec 06, 2015 1 application to affected area Propranolol HCl [facility] [address]-12 10 mg Orally Once a day PRN September 28, 2015 0.5 tablet Ibuprofen [facility] [address]-69 400 MG Orally Three times a day 1 tablet Florajen3 [facility] 02[address]16 - Orally not defined Calcium [facility] 96964-87021 600 MG Orally Once a day 1 tablet with meals Procedures Procedure Coding System Code Date Office Visit, Est Pt., Level 3 CPT-4 81907 Dec 06, 2015 Vital Signs Date/Time: Dec 06, 2015 Cardiac Monitoring Heart Rate 88 bpm Weight 127.0 lbs Height 65 in BMI 21.13 Index Blood Pressure Diastolic 78 mmHg Blood Pressure Systolic 122 mmHg Results No Known Results Summary Purpose [employer] Submission
--- OUTSIDE RECORDS SUMMARY | 2016-11-06 19:09 | XMS REPORT ---
Author Author THANG ROB Organization [employer] Address Unknown Phone Unavailable Care Team Providers Care Fence Builder Name Role Phone THANG ROB CP Unavailable [...] patient &/family, 45 minutes, established patient CPT-4 05192 Jan 01, 2016 Results No Known Results Summary Purpose [employer] Submission
[2016-11-06] MEDS ORDERED: LACTATED RINGERS 1,000 ML IV SCH (19:34)
[2016-11-06] MEDS ORDERED: MISOPROSTOL 100 MCG (CYTOTEC) TAB PO NR (19:45)
[2016-11-06] MEDS ORDERED: HYDROmorphone (DILAUDID) 2 MG/ML VIAL IVP ONE (19:45)
[2016-11-06 20:09] LABS: BASOPHILS % (AUTO) 0 % (0-10); EOSINOPHILS # (AUTO) 0.1 10^3/uL (0.0-0.3); EOSINOPHILS % (AUTO) 1 % (0-10); LYMPHOCYTES # (AUTO) 2.4 X 10^3 (1.0-4.0); LYMPHOCYTES % (AUTO) 21 % (12-44); MEAN CORPUSCULAR HEMOGLOBIN 28 PG (25-34); MEAN CORPUSCULAR HGB CONC 34 G/DL (32-36); MEAN CORPUSCULAR VOLUME 83 FL (80-99); MEAN PLATELET VOLUME 13.5 FL (7.4-10.4); MONOCYTES # (AUTO) 1.1 X 10^3 (0.0-1.0); MONOCYTES % (AUTO) 10 % (0-12); NEUTROPHILS # (AUTO) 8.1 X 10^3 (1.8-7.8); NEUTROPHILS % (AUTO) 69 % (42-75); PLATELET COUNT 132 10^3/uL (130-400); RED BLOOD COUNT 4.19 10^6/uL (4.35-5.85); RED CELL DISTRIBUTION WIDTH 12.1 % (10.0-14.5); WHITE BLOOD COUNT 11.7 10^3/uL (4.3-11.0)
[2016-11-06] MEDS: D5 LR IV SOLUTION 1,000 ML IV SCH (20:51)
--- NOTE | 2016-11-06 21:22 | History & Physical-OB ---
OB - Chief Complaint & HPI Date/Time Date of Admission: Date of Admission: Nov 06, 2016 at 7:02 pm Time Seen by Provider: 21:30 Chief Complaint/History OB-Reason for Admission/Chief: Induction of Labor Hx : 1 Hx Para: 0 Expected Date of Delivery: Nov 07, 2016 Gestational Age in Weeks: 39 Gestational Age in Days: 6 Other reason for admission: >39 week induction, Gestational thrombocytopenia Admission Nurse Assessment Rev: Yes History of Labs O pos Antibody neg RI RPR NR HBsAg NR HIV NR GC neg GBS neg Allergies and Home Medications Allergies Coded Allergies: Penicillins (Verified Allergy, Mild, 08/05/12) ibandronate sodium (Verified Allergy, Unknown, 05/14/16) Home Medications Calcium Carbonate 500 Mg Tablet, 500 MG PO DAILY, (Reported) Ergocalciferol (Vitamin D2) 400 Unit Tablet, 400 UNIT PO DAILY, (Reported) Vit W-Ca,Fe,FA(<1 mg) 1 Each Tablet, 1 EACH PO DAILY, (Reported) OB - History Hx of Present Care: Yes Ultrasounds: Normal mid trimester US Obstetrical Complications: Other (gestational thrombocytopenia) Medical Complications: None Delivery History 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) Patient Past Medical History Platelet secretory disorder, Fibromyalgia Social History/Family History 2nd Hand Smoke Exposure: No OB - Admission Exam Physical Exam Date Seen by Provider: Nov 06, 2016 Time Seen by Provider: 21:25 HEENT: NCAT Heart: Rhythm Normal Lungs: Clear Abdomen: Gravid Extremities: Normal Reflexes: Normal Cervical Dilatation: 1cm Effacement: 75% Station: -1 Membranes: Intact Heart Rate: 130's Accelerations: Accelerations Present Decelerations: No Decelerations Short Term Variability: Present Client Relationship Manager Variability: Average (6-25) Contractions on Admission: >10 Minutes Apart Intensity: Mild Hays Scoring Tool (Modified) Dilation (cm): 1-2cm (1) Effacement (%): 51-79% (2) Descent/Station: -1,0 (2) Cervix Consistency: Soft (2) Cervix Position: Anterior (2) Hays Score: 7 Labs Laboratory Tests Test 11/06/16 19:40 Range/Units White Blood Count 11.7 H 4.3-11.0 10^3/uL Red Blood Count 4.19 L 4.35-5.85 10^6/uL Hemoglobin 11.7 11.5-16.0 G/DL Hematocrit 35 35-52 % Mean Corpuscular Volume 83 80-99 FL Mean Corpuscular Hemoglobin 28 25-34 PG Mean Corpuscular Hemoglobin Concent 34 32-36 G/DL Red Cell Distribution Width 12.1 10.0-14.5 % Platelet Count 132 130-400 10^3/uL Mean Platelet Volume 13.5 H 7.4-10.4 FL Neutrophils (%) (Auto) 69 42-75 % Lymphocytes (%) (Auto) 21 12-44 % Monocytes (%) (Auto) 10 0-12 % Eosinophils (%) (Auto) 1 0-10 % Basophils (%) (Auto) 0 0-10 % Neutrophils # (Auto) 8.1 H 1.8-7.8 X 10^3 Lymphocytes # (Auto) 2.4 1.0-4.0 X 10^3 Monocytes # (Auto) 1.1 H 0.0-1.0 X 10^3 Eosinophils # (Auto) 0.1 0.0-0.3 10^3/uL Basophils # (Auto) 0.0 0.0-0.1 10^3/uL OB - Assessment/Plan/Diagnosis Assessment Assessment: induction of labor Plan Plan: Induction Induction Method: per Misoprostol Protocol Discharge Diagnosis Diagnosis: 21 yo @ 39.6 Gestational Thrombocytopenia GBS neg BRUCE ARELLANO DO Nov 06, 2016 9:22 pm
[2016-11-06] MEDS ORDERED: CATHETER FLUSH 10 ML SYR IV SCH (22:00)
[2016-11-06] MEDS ORDERED: OMEP20TA33 PO (22:42)
[2016-11-07] VITALS (51 sets, daily range): BP systolic 95–132; BP diastolic 56–87
[2016-11-07] MEDS: MISOPROSTOL 100 MCG (CYTOTEC) TAB PO SCH ×2 (04:10)
[2016-11-07] MEDS: D5 LR IV SOLUTION 1,000 ML IV SCH ×2 (04:48→13:10)
[2016-11-07] MEDS ORDERED: HYDROmorphone (DILAUDID) 2 MG/ML VIAL ONE (06:44)
[2016-11-07] MEDS ORDERED: OXYTOCIN/NORMAL SALINE 500 ML IV ONE ×2 (08:19→15:59)
[2016-11-07] MEDS ORDERED: SUFENTA 0.6MCG/ML BUPIVA 0.125 100 ML ONE (08:19)
[2016-11-07] MEDS ORDERED: LIDOCAINE PF 2% 5 ML (XYLOCAINE) VIAL ONE (08:40)
[2016-11-07] MEDS ORDERED: fentaNYL INJECTION 100 MCG/2 ML AMP ONE (08:40)
[2016-11-07] MEDS ORDERED: BUPIVACAINE 0.25% 30 ML (SENSORCAINE) VIAL ONE (08:40)
[2016-11-07] MEDS ORDERED: ONDANSETRON 4 MG/2 ML (SDV) Z0FRAN ONE (12:59)
[2016-11-07] MEDS ORDERED: FAMOTIDINE 20MG/2ML IV (PEPCID) ONE (13:00)
[2016-11-07] MEDS ORDERED: FAMOTIDINE 20MG/2ML IV (PEPCID) IVP ONE (13:05)
[2016-11-07] MEDS ORDERED: LIDOCAINE/EPI 2% 1:200,00 (XYLOCAINE) 10 ML VIAL ONE (14:18)
[2016-11-07] MEDS ORDERED: LACTATED RINGERS 1,000 ML IV ONE (14:21)
[2016-11-07] MEDS ORDERED: CATHETER FLUSH 10 ML SYR IV PRN (14:30)
[2016-11-07] MEDS ORDERED: EPIDURAL (SUFENTA 0.6MCG/ML BUPIVA 0.125%) 100 ML BAG EPI SCH (14:30)
[2016-11-07] MEDS ORDERED: diphenhydrAMINE 50 MG/ML INJ (BENADRYL) IV PRN (14:30)
[2016-11-07] MEDS ORDERED: ONDANSETRON 4 MG/2 ML (SDV) Z0FRAN IV PRN (14:30)
[2016-11-07] MEDS ORDERED: NALOXONE 0.4 MG/ML 1 ML (NARCAN) VIAL IV PRN (14:30)
[2016-11-07] MEDS ORDERED: OXYTOCIN/NORMAL SALINE 500 ML IV SCH (15:50)
--- NOTE | 2016-11-07 15:50 | OB Labor & Delivery Record ---
L&D History Date of Service Date of Service: Nov 07, 2016 History Expected Date of Delivery: Nov 07, 2016 Gestational Age in Weeks: 39 Hx : 1 Hx Para: 0 Complications Events: Routine care (gestational thrombocytopenia) Operative Indications (Cesarea: N/A-Vaginal Delivery Intrapartal Events: None L&D Stage1 Stage One Onset of Labor - Date: Nov 07, 2016 Monitors and Tracing Monitor Mode: External Heart Rate: 140 Monitor Accelerations: Uniform Monitor Decelerations: Early Station: 0 Collections Specialist Variability: Average (6-10) Short Term Variability: Present Presentation: Vertex Vital Signs VS - Last 72 Hours, by Label 11/06/16 11/06/16 11/06/16 11/06/16 19:37 20:13 20:43 21:16 Temp 98.2 Pulse 99 109 93 93 Resp 18 18 18 18 B/P (MAP) 132/82 123/68 121/78 127/80 O2 Delivery Room Air Room Air Room Air Room Air 11/06/16 11/06/16 11/06/16 11/06/16 21:51 22:14 22:43 23:14 Pulse 85 82 79 79 Resp 18 18 18 18 B/P (MAP) 115/72 123/60 109/68 104/62 O2 Delivery Room Air Room Air Room Air Room Air 11/06/16 11/07/16 11/07/16 11/07/16 23:43 00:02 00:30 01:00 Pulse 88 84 84 81 Resp 18 B/P (MAP) 101/55 102/56 119/78 103/77 O2 Delivery Room Air 11/07/16 11/07/16 11/07/16 11/07/16 02:00 03:00 04:00 06:00 Pulse 81 68 74 83 B/P (MAP) 111/78 120/83 119/82 110/72 11/07/16 11/07/16 11/07/16 11/07/16 07:00 08:00 09:00 09:05 Pulse 78 96 92 93 Resp 20 20 20 B/P (MAP) 115/79 132/87 128/74 129/77 Pulse Ox 93 93 O2 Delivery Room Air Room Air 11/07/16 11/07/16 11/07/16 11/07/16 09:10 09:15 09:20 09:25 Pulse 105 85 82 84 Resp 20 18 18 18 B/P (MAP) 124/80 114/69 119/75 118/80 Pulse Ox 97 97 97 98 O2 Delivery Room Air Room Air Room Air Room Air 11/07/16 11/07/16 11/07/16 11/07/16 09:30 09:38 09:43 09:48 Pulse 75 76 70 77 Resp 18 20 20 20 B/P (MAP) 125/70 120/75 118/76 111/73 Pulse Ox 98 98 98 99 O2 Delivery Room Air Room Air Room Air Room Air 11/07/16 11/07/16 11/07/16 11/07/16 09:53 10:00 10:05 10:10 Pulse 78 76 78 82 Resp 20 20 20 20 B/P (MAP) 120/72 117/77 112/74 110/68 Pulse Ox 99 99 98 90 O2 Delivery Room Air Room Air Room Air Room Air 11/07/16 11/07/16 11/07/16 11/07/16 10:15 10:20 10:30 10:45 Pulse 77 72 76 102 Resp 20 18 18 18 B/P (MAP) 112/66 114/69 110/70 118/73 Pulse Ox 90 99 99 100 O2 Delivery Room Air Room Air Room Air Room Air 11/07/16 11/07/16 11/07/16 11/07/16 11:00 11:15 11:30 11:45 Pulse 89 78 78 84 Resp 18 20 20 18 B/P (MAP) 122/62 112/71 112/71 119/74 Pulse Ox 99 O2 Delivery Room Air Room Air Room Air Room Air 11/07/16 11/07/16 11/07/16 11/07/16 12:00 12:15 12:30 12:45 Pulse 87 86 86 85 Resp 18 18 18 18 B/P (MAP) 110/73 120/74 121/73 124/75 O2 Delivery Room Air Room Air Room Air Room Air 11/07/16 11/07/16 11/07/16 11/07/16 13:00 13:15 13:30 13:45 Pulse 93 104 88 87 Resp 18 18 18 18 B/P (MAP) 117/74 123/73 114/68 114/67 O2 Delivery Room Air Room Air Room Air Room Air Rupture of Membranes Spontaneous Ruture of Membrane: No Amniotic Membrane Rupture Time: 817 Vaginal Bleeding Description: Normal Show Induction/Anesthesia Epidural Cath Placement - Time: 903 Progress/Notes Misoprostol PO dosing used overnight, and AROM performed. Epidural obtained. The patient progressed in labor without further augmentation to complete and + 2 station. L&D Stage2 Stage Two Stage II Date: Nov 07, 2016 Monitors and Tracing Monitor Mode: External Heart Rate: 140 Monitor Accelerations: Uniform Monitor Decelerations: Early Detention Variability: Average (6-10) Short Term Variability: Present Position: Right Occiput Anterior Presentation: Vertex Cord Descript/Complications Cord Vessel Description: 3 Vessels Delivery Type Delivery Method: Spontaneous Vaginal Anterior Shoulder: Right Episiotomy/Perineal Laceration Laceraction(s)/Extensions: Yes Episiotomy Description: Right Mediolateral Location Modifier: Right Degree (describe repair) RML repaired using 3-0 vicryl suture and 2-0 in normal fashion Condition of Infant Delivery 1 minute Comment: 8 5 minute Comment: 9 Notes live female weight pending Condition of Condition of Infant: Living Exam: No Observed Abnormalities Resuscitation Resuscitation: N/A - Spontaneous Resp L&D Stage3 Stage Three Stage III Date: Nov 07, 2016 Pictocin Pitocin Administration Comment: 30 mu/ wide open Placenta Delivery Placenta Delivery: Spontaneous Delivery Summary Summary blood loss >1000ml: No Vaginal blood loss >500ml: No 350 Attending at delivery: Bruce Arellano DO Condition of Delivery Examined: Cervix Examined, Uterus Explored Post Hemorrhage: No Condition of Mother stable Condition of Infant (s) stable BRUCE ARELLANO DO Nov 07, 2016 3:50 pm
[2016-11-07] MEDS ORDERED: WITCH HAZEL(TUCKS) 40 EA JAR TOP PRN (16:00)
[2016-11-07] MEDS ORDERED: TETANUS,DIPTH,PERTUSS P/F (BOOSTRIX) 0.5 ML VIAL IM ONE (16:00)
[2016-11-07] MEDS ORDERED: DIBUCAINE (NUPERCAINAL) 1% OINT 30 GM TOP PRN (16:00)
[2016-11-07] MEDS ORDERED: APAP 300 MG/CODEINE 30 MG (TYLENOL #3) TAB PO PRN (16:00)
[2016-11-07] MEDS ORDERED: MEASLES,MUMPS,RUBELLA 1 EA INJ SQ ONE (16:00)
[2016-11-07] MEDS ORDERED: BENZOCAINE/MENTHOL (DERMOPLAST) 56 ML CAN TP PRN (16:00)
[2016-11-07] MEDS ORDERED: BENZ56AE2 TP (16:01)
[2016-11-07] MEDS ORDERED: FERR-74 PO (16:01)
[2016-11-07] MEDS ORDERED: DOCU100C37 PO (16:01)
[2016-11-07] MEDS ORDERED: IBUP-1773 PO (16:01)
[2016-11-07] MEDS ORDERED: ACET1TAB43 PO (16:01)
--- NOTE | 2016-11-07 16:01 | Discharge Inst-Women's Service ---
Discharge Inst-Women's Serv Depart Medication/Instructions New, Converted or Re-Newed RX: RX on Chart Consults/Follow Up Additional Follow Up: Yes Orders/Referrals Dr. Arellano in 6 weeks Activity Activity: Activity as Tolerated Driving Instructions: No Driving for 1 Week NO SMOKING: NO SMOKING Nothing Inside Vagina: No Douching, No Ceres, No Tampons Diet Discharge Diet: No Restrictions Symptoms to Report to : Bleeding Excessive, Pain Increased, Fever Over 101 Degrees F, Vaginal Bleeding Increase, Questions/Concerns For Any Problems or Questions: Contact Your Physician Skin/Wound Care Bathing Instructions: Shower (x 2 weeks) BRUCE ARELLANO DO Nov 07, 2016 4:01 pm
[2016-11-07] MEDS: IBUPROFEN 600 MG (MOTRIN) TAB PO SCH (17:21)
[2016-11-07] MEDS: DOCUSATE SODIUM 100 MG (COLACE) CAP PO SCH (20:58)
[2016-11-07] MEDS ORDERED: CATHETER FLUSH 10 ML SYR IV SCH (22:00)
[2016-11-08 00:45] VITALS: BP 97/63
[2016-11-08] MEDS: IBUPROFEN 600 MG (MOTRIN) TAB PO SCH ×4 (01:25→18:13)
[2016-11-08 05:00] VITALS: BP 103/67
[2016-11-08 06:22] LABS: BASOPHILS % (AUTO) 0 % (0-10); EOSINOPHILS % (AUTO) 0 % (0-10); LYMPHOCYTES # (AUTO) 1.9 X 10^3 (1.0-4.0); LYMPHOCYTES % (AUTO) 18 % (12-44); MEAN CORPUSCULAR HEMOGLOBIN 28 PG (25-34); MEAN CORPUSCULAR HGB CONC 32 G/DL (32-36); MEAN CORPUSCULAR VOLUME 85 FL (80-99); MONOCYTES # (AUTO) 0.9 X 10^3 (0.0-1.0); MONOCYTES % (AUTO) 9 % (0-12); NEUTROPHILS # (AUTO) 7.8 X 10^3 (1.8-7.8); NEUTROPHILS % (AUTO) 73 % (42-75); PLATELET COUNT 100 10^3/uL (130-400); RED BLOOD COUNT 3.57 10^6/uL (4.35-5.85); RED CELL DISTRIBUTION WIDTH 12.2 % (10.0-14.5); WHITE BLOOD COUNT 10.6 10^3/uL (4.3-11.0)
[2016-11-08] MEDS ORDERED: HYDROcodone/APAP 5 MG/325 MG (LORTAB) TAB PO PRN (07:45)
[2016-11-08 08:10] VITALS: BP 109/75
[2016-11-08] MEDS: DOCUSATE SODIUM 100 MG (COLACE) CAP PO SCH (08:13)
[2016-11-08] MEDS: FERROUS SULF 325 MG (IRON) TAB PO SCH (08:13)
[2016-11-08] MEDS: PRENATAL VITAMIN 1 EA TAB PO SCH (08:13)
--- NOTE | 2016-11-08 08:47 | Progress Note-Standard ---
Standard Progress Note Progress Notes/Assess & Plan Date Seen by Provider: Nov 08, 2016 Time Seen by Provider: 09:15 Progress/Assessment & Plan Patient is doing well on day one normal vaginal delivery. The patient is attempting to breast-feed upon entry into the room. She denies any concerns, denies heavy bleeding, denies nausea or vomiting. She reports ambulating and voiding freely without difficulty. She denies lightheadedness or dizziness this morning. She reports good pain control Vital Sign - Last 24 Hours 11/07/16 11/07/16 11/07/16 11/07/16 09:00 09:05 09:10 09:15 Pulse 92 93 105 85 Resp 20 20 20 18 B/P (MAP) 128/74 129/77 124/80 114/69 Pulse Ox 93 93 97 97 O2 Delivery Room Air Room Air Room Air Room Air 11/07/16 11/07/16 11/07/16 11/07/16 09:20 09:25 09:30 09:38 Pulse 82 84 75 76 Resp 18 18 18 20 B/P (MAP) 119/75 118/80 125/70 120/75 Pulse Ox 97 98 98 98 O2 Delivery Room Air Room Air Room Air Room Air 11/07/16 11/07/16 11/07/16 11/07/16 09:43 09:48 09:53 10:00 Pulse 70 77 78 76 Resp 20 20 20 20 B/P (MAP) 118/76 111/73 120/72 117/77 Pulse Ox 98 99 99 99 O2 Delivery Room Air Room Air Room Air Room Air 11/07/16 11/07/16 11/07/16 11/07/16 10:05 10:10 10:15 10:20 Pulse 78 82 77 72 Resp 20 20 20 18 B/P (MAP) 112/74 110/68 112/66 114/69 Pulse Ox 98 90 90 99 O2 Delivery Room Air Room Air Room Air Room Air 11/07/16 11/07/16 11/07/16 11/07/16 10:30 10:45 11:00 11:15 Pulse 76 102 89 78 Resp 18 18 18 20 B/P (MAP) 110/70 118/73 122/62 112/71 Pulse Ox 99 100 99 O2 Delivery Room Air Room Air Room Air Room Air 11/07/16 11/07/16 11/07/16 11/07/16 11:30 11:45 12:00 12:15 Pulse 78 84 87 86 Resp 20 18 18 18 B/P (MAP) 112/71 119/74 110/73 120/74 O2 Delivery Room Air Room Air Room Air Room Air 11/07/16 11/07/16 11/07/16 11/07/16 12:30 12:45 13:00 13:15 Pulse 86 85 93 104 Resp 18 18 18 18 B/P (MAP) 121/73 124/75 117/74 123/73 O2 Delivery Room Air Room Air Room Air Room Air 11/07/16 11/07/16 11/07/16 11/07/16 13:30 13:45 14:00 14:15 Pulse 88 87 90 95 Resp 18 18 20 18 B/P (MAP) 114/68 114/67 118/70 123/75 O2 Delivery Room Air Room Air Room Air Room Air 11/07/16 11/07/16 11/07/16 11/07/16 14:30 15:10 15:25 15:40 Temp 98.6 99.4 98.4 Pulse 108 110 101 103 Resp 20 18 20 20 B/P (MAP) 112/79 127/64 118/68 115/64 O2 Delivery Room Air Room Air Room Air Room Air 11/07/16 11/07/16 11/07/16 11/07/16 16:00 16:12 16:30 17:00 Temp 98.3 97.7 98.0 Pulse 106 88 87 88 Resp 20 18 18 18 B/P (MAP) 112/61 103/58 106/61 109/76 O2 Delivery Room Air Room Air Room Air Room Air 11/07/16 11/07/16 11/08/16 11/08/16 17:30 21:00 00:45 05:00 Temp 98.1 98.0 97.4 97.3 Pulse 92 96 86 78 Resp 20 20 20 20 B/P (MAP) 115/63 95/63 97/63 103/67 Pulse Ox 98 98 98 O2 Delivery Room Air Room Air Room Air Room Air 11/08/16 08:10 Temp 97.3 Pulse 87 Resp 18 B/P (MAP) 109/75 Pulse Ox 98 O2 Delivery Room Air Uterine fundus firm and below the umbilicus Laboratory Tests Test 11/08/16 05:58 Range/Units White Blood Count 10.6 4.3-11.0 10^3/uL Red Blood Count 3.57 L 4.35-5.85 10^6/uL Hemoglobin 9.8 L 11.5-16.0 G/DL Hematocrit 30 L 35-52 % Mean Corpuscular Volume 85 80-99 FL Mean Corpuscular Hemoglobin 28 25-34 PG Mean Corpuscular Hemoglobin Concent 32 32-36 G/DL Red Cell Distribution Width 12.2 10.0-14.5 % Platelet Count 100 L 130-400 10^3/uL Mean Platelet Volume 13.0 H 7.4-10.4 FL Neutrophils (%) (Auto) 73 42-75 % Lymphocytes (%) (Auto) 18 12-44 % Monocytes (%) (Auto) 9 0-12 % Eosinophils (%) (Auto) 0 0-10 % Basophils (%) (Auto) 0 0-10 % Neutrophils # (Auto) 7.8 1.8-7.8 X 10^3 Lymphocytes # (Auto) 1.9 1.0-4.0 X 10^3 Monocytes # (Auto) 0.9 0.0-1.0 X 10^3 Eosinophils # (Auto) 0.0 0.0-0.3 10^3/uL Basophils # (Auto) 0.0 0.0-0.1 10^3/uL Diagnosis: day one normal vaginal delivery Acute blood loss anemia Plan: Replace iron Continue care and encourage breast-feeding and ambulation Anticipate discharge tomorrow morning BRUCE ARELLANO DO Nov 08, 2016 8:47 am
[2016-11-08 12:00] VITALS: BP 110/71
--- NOTE | 2016-11-08 14:46 | Anesthesia-Regional Post-Op ---
Regional Patient Condition Mental Status: Alert, Oriented x3 Circulation: Same as Pre-Op Headache: Absent Sensation: Full Recovery Motor Block: Absent Post Op Complications Complications None Follow Up Care/Instructions Patient Instructions None needed. Anesthesia/Patient Condition Patient is doing well,states her right leg feels swollen but no numbness or motor block, stable vital signs, no apparent adverse anesthesia problems. No complications reported per nursing. ROJAS SCHULZ CRNA Nov 08, 2016 14:46
[2016-11-08 16:00] VITALS: BP 103/69
[2016-11-08 20:35] VITALS: BP 112/76
[2016-11-09] MEDS: IBUPROFEN 600 MG (MOTRIN) TAB PO SCH ×2 (00:07→06:12)
[2016-11-09 03:40] VITALS: BP 95/62
[2016-11-09 08:30] VITALS: BP 105/70
[2016-11-09] MEDS: PRENATAL VITAMIN 1 EA TAB PO SCH (08:45)
[2016-11-09] MEDS: DOCUSATE SODIUM 100 MG (COLACE) CAP PO SCH (08:45)
[2016-11-09] MEDS: FERROUS SULF 325 MG (IRON) TAB PO SCH (08:45)
--- NOTE | 2016-11-09 09:44 | Progress Note-Standard ---
Standard Progress Note Progress Notes/Assess & Plan Date Seen by Provider: Nov 09, 2016 Time Seen by Provider: 09:30 Progress/Assessment & Plan Patient is doing well on day two normal vaginal delivery. She denies any concerns, denies heavy bleeding, denies nausea or vomiting. She reports ambulating and voiding freely without difficulty. She denies lightheadedness or dizziness this morning. She reports good pain control Vital Sign - Last 24 Hours 11/08/16 11/08/16 11/08/16 11/09/16 12:00 16:00 20:35 03:40 Temp 97.6 97.6 98.2 98.1 Pulse 97 88 79 84 Resp 18 18 18 18 B/P (MAP) 110/71 103/69 112/76 95/62 Pulse Ox 98 98 99 99 O2 Delivery Room Air Room Air Room Air Room Air 11/09/16 08:30 Temp 97.7 Pulse 85 Resp 18 B/P (MAP) 105/70 Pulse Ox 98 O2 Delivery Room Air Diagnosis: day two normal vaginal delivery Acute blood loss anemia Plan: Replace iron Continue care and encourage breast-feeding and ambulation Anticipate discharge tomorrow morning BRUCE ARELLANO DO Nov 09, 2016 9:44 am
== END 2016-11-09 11:30 | disposition home or self-care (01) | DRG 774 ==
LOC: LDRP 19:02
PROVIDERS: ADMIT Obstetrics & Gynecology; ATTEND Obstetrics & Gynecology
PROC: 10E0XZZ Delivery of Products of Conception, External Approach (ICD-10-PCS; principal; 2016-11-07)
PROC: 0W8NXZZ Division of Female Perineum, External Approach (ICD-10-PCS; 2016-11-07)
DX: O46.003 Antepartum hemorrhage with coagulation defect, unspecified, third trimester (principal); O90.81 Anemia of the puerperium; D62 Acute posthemorrhagic anemia; Z37.0 Single live birth; Z3A.39 39 weeks gestation of pregnancy
CPT/HCPCS: 36415; 85025; 86850; 86900; 86901

== ENCOUNTER → 2016-12-17 | Outpatient (CLI) | payer MEDICAID ==
[~2016-12-17] MED LIST changes: +ACET1TAB43 PO; +BENZ56AE2 TP; +DOCU100C37 PO; +FERR-74 PO; +IBUP-1773 PO; +OMEP20TA33 PO
--- NOTE | 2016-12-17 09:29 | Diagnostic Imaging Report ---
Clinical indication: Patient with abdominal and back pain with vomiting. Exam: Right upper quadrant ultrasound. Comparison: None. Findings: The pancreas has normal echogenicity, shape, and appearance with no gross abnormality noted. The liver has normal echogenicity and echotexture with no mass seen. The liver has smooth surface. There is no intrahepatic or extrahepatic ductal dilation. The common bile duct measures 3 mm. There are multiple small stones which are mobile layering within the gallbladder. The gallbladder is moderately distended. Gallbladder wall thickening is 2.9 mm which is within normal limits. There is no pericholecystic fluid. There is no sonographic Reyes sign. The right kidney has normal appearance with no mass or hydronephrosis. Right kidney measures 10.0 cm in craniocaudal dimension. There is no abdominal ascites. Impression: 1: Cholelithiasis with no ultrasound evidence of acute cholecystitis. 2: Otherwise unremarkable right upper quadrant ultrasound. Dictated by: Dictated on workstation # [id number]
== END ==
LOC: RAD 08:49
PROVIDERS: ATTEND Family Medicine
DX: K80.20 Calculus of gallbladder without cholecystitis without obstruction (principal)
CPT/HCPCS: 76705

== ENCOUNTER 2016-12-29 13:17 | Outpatient (CLI) | payer MEDICAID ==
[~2016-12-29] VITALS: Ht 165.1 cm; Wt 60.3 kg
[2016-12-29 13:24] VITALS: BP 116/73
[2016-12-29] MEDS ORDERED: FERR-74 PO (13:28)
[2016-12-29] MEDS ORDERED: ERGO400T6 PO (13:28)
[2016-12-29] MEDS ORDERED: IBUP-1773 PO (13:28)
[2016-12-29 13:51] LABS: BASOPHILS % (AUTO) 0 % (0-10); EOSINOPHILS # (AUTO) 0.1 10^3/uL (0.0-0.3); EOSINOPHILS % (AUTO) 1 % (0-10); LYMPHOCYTES % (AUTO) 42 % (12-44); MEAN CORPUSCULAR HEMOGLOBIN 27 PG (25-34); MEAN CORPUSCULAR HGB CONC 33 G/DL (32-36); MEAN CORPUSCULAR VOLUME 82 FL (80-99); MEAN PLATELET VOLUME 11.5 FL (7.4-10.4); MONOCYTES # (AUTO) 0.3 X 10^3 (0.0-1.0); MONOCYTES % (AUTO) 7 % (0-12); NEUTROPHILS # (AUTO) 2.4 X 10^3 (1.8-7.8); NEUTROPHILS % (AUTO) 50 % (42-75); PLATELET COUNT 201 10^3/uL (130-400); RED BLOOD COUNT 4.68 10^6/uL (4.35-5.85); RED CELL DISTRIBUTION WIDTH 13.5 % (10.0-14.5); WHITE BLOOD COUNT 4.8 10^3/uL (4.3-11.0)
== END 2016-12-29 13:45 | disposition home or self-care (01) ==
LOC: PREOP 13:17
PROVIDERS: ATTEND Surgery
DX: Z01.812 Encounter for preprocedural laboratory examination (principal); K80.20 Calculus of gallbladder without cholecystitis without obstruction
CPT/HCPCS: 36415; 84703; 85025; 87081

== ENCOUNTER 2017-01-01 10:34 | Day surgery (SDC) | payer MEDICAID ==
[~2017-01-01] VITALS: Ht 165.1 cm; Wt 60.3 kg
[~2017-01-01 10:34] MED LIST changes: +ERGO400T6 PO
[2017-01-01] MEDS ORDERED: CLINDAMYCIN 600 MG/NS 50 ML IVPB IV ONE ×2 (10:45)
[2017-01-01] MEDS ORDERED: CATHETER FLUSH 10 ML SYR IV PRN (10:45)
[2017-01-01] MEDS ORDERED: BUP/EPI 0.5% 1:200,000 (MARCAINE) 10ML VIAL IJ ONE (10:49)
[2017-01-01] MEDS ORDERED: LACTATED RINGERS 1,000 ML IV PRN (11:14)
[2017-01-01] MEDS ORDERED: MIDAZOLAM 2 MG/2 ML (VERSED) VIAL IV ONE (11:15)
[2017-01-01] MEDS ORDERED: FAMOTIDINE 20MG/2ML IV (PEPCID) ONE (11:16)
[2017-01-01] MEDS ORDERED: FAMOTIDINE 20MG/2ML IV (PEPCID) IV ONE (11:30)
[2017-01-01] MEDS ORDERED: fentaNYL INJECTION 250 MCG/5 ML AMP ONE (12:29)
[2017-01-01] MEDS ORDERED: ROCURONIUM 50 MG/5 ML (ZEMURON) VIAL IV ONE (12:29)
[2017-01-01] MEDS ORDERED: proPOfol 200 MG/20 ML (DIPRIVAN) VIAL IV ONE ×2 (12:29→13:56)
[2017-01-01 12:41] VITALS: BP 117/82
--- NOTE | 2017-01-01 12:42 | Progress Note-Pre Operative ---
Pre-Operative Progress Note H&P Reviewed The H&P was reviewed, patient examined and no changes noted. Date Seen by Provider: Jan 01, 2017 Time Seen by Provider: 12:00 Date H&P Reviewed: Jan 01, 2017 Time H&P Reviewed: 12:00 Pre-Operative Diagnosis: symptomatic calculous cholecystitis. SATINDER LYNCH MD Jan 01, 2017 12:42 pm
[2017-01-01] MEDS ORDERED: ONDANSETRON 4 MG/2 ML (SDV) Z0FRAN IVP PRN ×2 (12:45→14:45)
[2017-01-01] MEDS ORDERED: HYDROcodone/APAP 5 MG/325 MG (LORTAB) TAB PO ONE (12:45)
[2017-01-01] MEDS ORDERED: ACETAMINOPHEN 325 MG TABLET/CAPLET (TYLENOL) PO PRN (12:45)
[2017-01-01] MEDS ORDERED: morphine INJ 10 MG/ML 1ML (SYR OR VIAL) IVP PRN ×2 (12:45→14:45)
[2017-01-01] MEDS ORDERED: ESMOLOL 100 MG/10 ML (BREVIBLOC) VIAL ONE (13:56)
[2017-01-01] MEDS ORDERED: GLYCOPYRROLATE 0.2 MG/ML (ROBINUL) 2 ML VIAL ONE (13:56)
[2017-01-01] MEDS ORDERED: NEOSTIGMINE (BLOXIVERZ ) 1 MG/1ML 10 ML VIAL ONE (14:21)
--- NOTE | 2017-01-01 14:33 | Progress Note-Post Operative ---
Post-Operative Progess Note Surgeon (s)/Corncob Pipe Supervisor (s) Surgeon SATINDER LYNCH MD Corncob Pipe Supervisor: yessenia trinh APRN Pre-Operative Diagnosis symptomatic calculous cholecystitis. Post-Operative Diagnosis same Procedure & Operative Findings Date of Procedure 01/01/17 Procedure Performed/Findings laparoscopic cholecystectomy. Anesthesia Type GET Estimated Blood Loss Estimated blood loss (mL): minimal Specimens/Packing Specimens Removed gallbladder SATINDER LYNCH MD Jan 01, 2017 2:33 pm
[2017-01-01] MEDS ORDERED: TRAM-42 PO ×2 (14:37)
[2017-01-01] MEDS ORDERED: morphine INJ 10 MG/ML 1ML (SYR OR VIAL) ONE (14:38)
--- NOTE | 2017-01-01 14:40 | Discharge Inst-Surgical ---
D/C Lap Instructions-SYED New, Converted, or Re-Newed RX: RX on Chart Follow Up Appt in 2 weeks Activity as tolerated No driving for 24 hours No driving while on pain medications Incentive Spirometry use every 2 hours while awake Regular Diet Symptoms to Report: Fever over 101 degree F, Nausea/Vomiting Infection Signs and Symptoms to report: Increased redness, Foul odor of wound, Increased drainage Bathing instructions: May shower Operative Area Clean/Dry; Keep incision clean/dry If any problems/questions: Contact your physician or go to Emergency Room SATINDER LYNCH MD Jan 01, 2017 2:39 pm
[2017-01-01] MEDS ORDERED: KETOROLAC 30 MG/ML VIAL IVP ONE (14:45)
[2017-01-01] MEDS ORDERED: LIDOCAINE PF 2% 5 ML (XYLOCAINE) VIAL ONE (15:00)
[2017-01-01] MEDS ORDERED: ONDANSETRON 4 MG/2 ML (SDV) Z0FRAN ONE (15:00)
[2017-01-01 15:30] VITALS: BP 122/86
[2017-01-01 16:00] VITALS: BP 131/81
[2017-01-01 16:30] VITALS: BP 114/70
[2017-01-01 17:50] VITALS: BP 114/70
--- NOTE | 2017-01-02 03:47 | OPERATIVE REPORT ---
DATE OF SERVICE: 01/01/2017 ATTENDING PRIMARY CARE PHYSICIAN: Christy Granda MD. PREOPERATIVE DIAGNOSIS: Symptomatic chronic calculous cholecystitis. POSTOPERATIVE DIAGNOSIS: Symptomatic chronic calculous cholecystitis. PROCEDURE: Laparoscopic cholecystectomy. SURGEON: Satinder Lynch MD. ANESTHESIA: General endotracheal. ESTIMATED BLOOD LOSS: Minimal. FINDINGS: Chronic gallbladder wall inflammation, multiple small gallstones. DISPOSITION: The patient tolerated the procedure well. INDICATIONS FOR PROCEDURE: The patient is a 21-year-old female who reported developing pain in the right upper abdominal quadrant with radiation towards the back with associated nausea and vomiting during her second trimester earlier this year. She was able to successfully finish out gestation and spontaneous vaginal delivery; however, she continued to have pain in the right upper abdominal quadrant. A CT scan was performed, which did show multiple gallstones. She reports that the pain is usually initiated by eating foods, especially foods that are heavy in inconsistency like greasy or spicy foods. DESCRIPTION OF PROCEDURE: The patient was brought to the operating room, laid supine on the table. After adequate IV pain and sedative medications and general endotracheal intubation, the abdomen was prepped and draped in a standard surgical fashion. A 0.5% Marcaine with epinephrine was then used to anesthetize the overlying skin in the left upper abdominal quadrant and a small transverse skin incision made using a 15-blade. A 0 silk suture was applied to the medial aspect of the incision for retraction and a Veress needle inserted with a low opening pressure of 0 mmHg. The abdomen was then insufflated to 15 mmHg pressure. The Veress needle removed and a 5 mm Xcel trocar placed followed by a 5 mm port and 5-degree angle laparoscope visualizing the peritoneal cavity. A 4-quadrant abdominal exploration was performed. There was xoyn-au-dazapgxv gallbladder wall inflammation as well as distention. There were also omental adhesions to the gallbladder. Under direct visualization, we then proceeded to place a supraumbilical 10 mm port after the skin and peritoneum were anesthetized using 0.5% Marcaine with epinephrine and a transverse skin incision made using a 15-blade. In a similar manner, a right upper abdominal quadrant 5 mm port was placed. The patient was then placed in reverse Trendelenburg position as well as plane right side up, left side down. The fundus of the gallbladder was then retracted anteriorly and superiorly. The omental adhesions were then taken down using electrocautery as well as blunt dissection. The gastrohepatic ligament was then opened using electrocautery on the hook instrument as well as blunt dissection. The entire critical view of safety was identified including the triangle of Calot including the cystic duct and artery going into the gallbladder as well as the liver behind the proximal gallbladder. A timeout was then taken and the cystic duct and artery were then clipped proximally, distally and cut with EndoShears. The gallbladder was then dissected off of the liver bed using electrocautery on the hook instrument with visualization of good hemostasis as well as no leaking ducts of Luschka. The gallbladder was removed through the 10 mm port site using an EndoCatch bag. The fascia and peritoneum to the 10 mm port site were then closed under direct visualization using a Delfino-Margarita device and 0 Vicryl suture. The abdomen was desufflated and the remaining ports removed. All skin incisions were closed using 4-0 Monocryl running subcuticular sutures. Wounds were then cleaned and covered with Dermabond. The patient tolerated the procedure well. We will start IV and oral pain medication as well as a clear liquid diet. Once she is tolerating clears, has good pain control with oral pain medications and ambulating well, we will discharge her home. She will be instructed to do no heavy lifting or exertion for the next 2 weeks. Job ID: [id number] DocumentID: [id number] Dictated Date: 01/01/2017 14:46:20 Inseminator Date: 01/01/2017 22:16:19 Dictated By: SATINDER LYNCH MD
== END 2017-01-01 17:50 | disposition home or self-care (01) ==
LOC: SDC 10:34
PROVIDERS: ATTEND Surgery
DX: K80.10 Calculus of gallbladder with chronic cholecystitis without obstruction (principal); M81.0 Age-related osteoporosis without current pathological fracture; M79.7 Fibromyalgia; F41.9 Anxiety disorder, unspecified; K21.9 Gastro-esophageal reflux disease without esophagitis; D69.1 Qualitative platelet defects; Z79.899 Other long term (current) drug therapy

== ENCOUNTER 2017-01-01 22:01 | Emergency (ER) | payer MEDICAID ==
[~2017-01-01] VITALS: Ht 165.1 cm; Wt 60.3 kg
[~2017-01-01 22:01] MED LIST changes: +TRAM-42 PO
[2017-01-01] MEDS ORDERED: NS 100 ML (IVPB) BAG IV ONE (22:15)
[2017-01-01] MEDS ORDERED: IOHEXOL 350 MG/ML 100 ML (OMNIPAQUE 350) VIAL IV ONE (22:15)
--- NOTE | 2017-01-01 22:46 | ED Abdominal Pain ---
General Chief Complaint: Abdominal/GI Problems Stated Complaint: PAIN AFTER SURGERY Nursing Triage Note: PATIENT HAD VAG DELIVERY 7 WEEKS AGO AND HAD GALLBLADDER REMOVED TODAY. SHE HAS ABD PAIN, SOA, AND OVERALL DISCOMFORT. Sepsis Screen: No Definite Risk Source of Information: Patient, Family (mother) Exam Limitations: No Limitations History of Present Illness Time Seen By Provider: 22:46 Initial Comments 21 yo female patient presents to the ED with c/o generalized abdominal pain, SOA , and generalized discomfort after having a Lap Jazmyn today by Dr. Tellez. Patient states she has not tried to eat since the surgery due to nausea. Patient states she has not urinated since prior to the surgery. States she has had continue nausea since the surgery. Mother is very agitated and states the recovery staff was "just worried about going home instead of worrying about the patient". She states they "just threw her in a wheelchair and shoved her out the door!" Per the patient she was unable to stand or move without assistance ( due to the abdominal pain). Timing/Duration: 4-6 Hours, Constant Severity/Quality: Aching, Cramping, Sharp Location: Generalized Abdomen Modifying Factors: Worsens With Breathing, Worsens With Eating, Worsens With Lying down, Worsens With Movement, Worsens With Palpation Allergies and Home Medications Allergies Coded Allergies: Penicillins (Verified Allergy, Mild, 08/05/12) ibandronate sodium (Verified Allergy, Unknown, 05/14/16) Home Medications Ergocalciferol (Vitamin D2) 400 Unit Tablet, 400 UNIT PO DAILY, (Reported) Ferrous Sulfate 325 Mg Tablet, 325 MG PO DAILY, (Reported) Ibuprofen 600 Mg Tablet, 600 MG PO Q6H PRN for PAIN, (Reported) Omeprazole Magnesium 20 Mg Tablet.dr, 20 MG PO BID, (Reported) Tramadol HCl 50 Mg Tablet, 50-100 MG PO Q4H, #35 Prescribed by: SATINDER TELLEZ on 01/01/17 6717 Review of Systems Constitutional: No chills, No dizziness, No fever, No malaise EENTM: No Symptoms Reported Respiratory: Denies Cough, Shortness of Air, Denies Stridor, Denies Wheezing Cardiovascular: Denies Chest Pain, Denies Edema, Denies Lightheadedness, Denies Palpitations, Denies Syncope Gastrointestinal: Abdomen Distended, Abdominal Pain, Denies Blood Streaked Stools, Denies Constipated, Denies Diarrhea, Nausea, Poor Appetite, Poor Fluid Intake, Denies Rectal Bleeding, Vomiting Genitourinary: Denies Burning, Denies Frequency, Denies Flank Pain, Denies Hematuria Musculoskeletal: no symptoms reported Skin: no symptoms reported Psychiatric/Neurological: No Symptoms Reported All Other Systems Reviewed Negative Unless Noted: Yes (Negative excepted noted.) Past [id number]-Oebadt-Abuzfd Hx Patient Social History Alcohol Use: Denies Use Recreational Drug Use: No Smoking Status: Never a Smoker 2nd Hand Smoke Exposure: No Recent Foreign Travel: No Contact w/Someone Who Travel: No Recent Infectious Disease Expo: No Recent Hopitalizations: No (DAY SURG -01/01/17) Immunizations Up To Date Date of Influenza Vaccine: Nov 21, 2016 Seasonal Allergies Seasonal Allergies: No Surgeries History of Surgeries: Yes (BILAT INGUINAL HERNIAS, TUBES IN EARS) Surgeries: Gallbladder, Tonsillectomy Respiratory History of Respiratory Disorde: No Cardiovascular History of Cardiac Disorders: No Neurological History of Neurological Disord: No Reproductive System : No Last Menstrual Period: Jan 01, 2017 Hx Reproductive Disorders: No Female Reproductive Disorders: Menstrual Problems Genitourinary History of Genitourinary Disor: No Gastrointestinal History of Gastrointestinal Di: Yes Gastrointestinal Disorders: Gall Bladder Disease Musculoskeletal History of Musculoskeletal Dis: No Endocrine History of Endocrine Disorders: No HEENT History of HEENT Disorders: Yes (WEARS GLASSES) Cancer History of Cancer: No Psychosocial History of Psychiatric Problem: Yes Behavioral Health Disorders: Anxiety Integumentary History of Skin or Integumenta: No Blood Transfusions 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) Reviewed Nursing Assessment Reviewed/Agree w Nursing PMH: Yes Family Medical History Significant Family History: No Pertinent Family Hx Family Medial History: FH: brain tumor GRANDMOTHER, PATERNAL FH: breast cancer GRANDMOTHER, PATERNAL GREAT GRANDMOTHER, MATERNAL GREAT AUNT, MATERNAL FH: colon cancer GRANDFATHER, PATERNAL FH: lung cancer GRANDMOTHER, PATERNAL HYPERFIBRINOGENAEMIA G8 BROTHER Hypertension GRANDMOTHER, MATERNAL Physical Exam Vital Signs VS - Last 72 Hours, by Label 01/01/17 01/02/17 22:36 01:25 Temp 97.9 Pulse 109 0 Resp 22 0 B/P (MAP) 112/83 Pulse Ox 99 0 O2 Delivery Room Air Capillary Refill : Less Than 3 Seconds General Appearance: WD/WN, other (anxious, very dramatic.) HEENT: PERRL/EOMI, pharynx normal Neck: supple, normal inspection Respiratory: lungs clear, normal breath sounds, no respiratory distress, no accessory muscle use, other (poor inspiratory effort. patient refuses to take a deep breath. ) Cardiovascular: normal peripheral pulses, no edema, no murmur, tachycardia Peripheral Pulses: 2+ Dorsalis Pedis (R), 2+ Left Dors-Pedis (L), 2+ Radial Pulses (R), 2+ Radial Pulses (L) Gastrointestinal: normal bowel sounds, distended (mild distention), tenderness (generalized tenderness.), other (patient refuses to relax the abdominal muscles. Exaggerated pain response to palpation. incisions intact without cellulitis) Extremities: no pedal edema, no calf tenderness, normal capillary refill Back: normal inspection Neurologic/Psychiatric: alert, normal mood/affect, oriented x 3 Skin: normal color, warm/dry, other (incision intact without evidence of active bleeding or cellulitis) Exam Comments initially patient refused to lay down for the abdominal exam (patient attempted to lay down x2 (with the assistance of her mother "cradling her") and when patient reaches approx 45 degrees she states "no, no! I can't do it". Patient holds her breath each time she lays down and after approximately 5 seconds she states "I can't breath!" SaO2 100% on RA). after refusing the toradol and valium, i advised the patient that i need to do a formal abdominal exam. patient with her mother "cradling her in her arms" lays down. I asked the mother to release the patient and remove her arms from over the abdomen so that I can do the abdominal exam. See abdominal exam findings above. Progress/Results/Core Measures Results/Orders Lab Results Laboratory Tests Test 01/01/17 22:40 01/01/17 23:14 Range/Units White Blood Count 16.1 H 4.3-11.0 10^3/uL Red Blood Count 4.87 4.35-5.85 10^6/uL Hemoglobin 13.2 11.5-16.0 G/DL Hematocrit 40 35-52 % Mean Corpuscular Volume 82 80-99 FL Mean Corpuscular Hemoglobin 27 25-34 PG Mean Corpuscular Hemoglobin Concent 33 32-36 G/DL Red Cell Distribution Width 13.7 10.0-14.5 % Platelet Count 197 130-400 10^3/uL Mean Platelet Volume 11.6 H 7.4-10.4 FL Neutrophils (%) (Auto) 92 H 42-75 % Lymphocytes (%) (Auto) 3 L 12-44 % Monocytes (%) (Auto) 5 0-12 % Eosinophils (%) (Auto) 0 0-10 % Basophils (%) (Auto) 0 0-10 % Neutrophils # (Auto) 14.8 H 1.8-7.8 X 10^3 Lymphocytes # (Auto) 0.4 L 1.0-4.0 X 10^3 Monocytes # (Auto) 0.9 0.0-1.0 X 10^3 Eosinophils # (Auto) 0.0 0.0-0.3 10^3/uL Basophils # (Auto) 0.0 0.0-0.1 10^3/uL Neutrophils % (Manual) 70 % Lymphocytes % (Manual) 9 % Monocytes % (Manual) 2 % Eosinophils % (Manual) 0 % Basophils % (Manual) 0 % Band Neutrophils 19 % Blood Morphology Comment NORMAL Sodium Level 138 135-145 MMOL/L Potassium Level 3.7 3.6-5.0 MMOL/L Chloride Level 106 98-107 MMOL/L Carbon Dioxide Level 23 21-32 MMOL/L Anion Gap 9 5-14 MMOL/L Blood Urea Nitrogen 9 7-18 MG/DL Creatinine 0.84 0.60-1.30 MG/DL Estimat Glomerular Filtration Rate > 60 BUN/Creatinine Ratio 11 Glucose Level 166 H 70-105 MG/DL Calcium Level 8.8 8.5-10.1 MG/DL Total Bilirubin 0.8 0.1-1.0 MG/DL Aspartate Amino Transf (AST/SGOT) 48 H 5-34 U/L Alanine Aminotransferase (ALT/SGPT) 76 H 0-55 U/L Alkaline Phosphatase 77 40-136 U/L Total Protein 7.3 6.4-8.2 GM/DL Albumin 4.4 3.2-4.5 GM/DL Lipase 13 8-78 U/L Serum Test, Qualitative NEGATIVE NEGATIVE Urine Color YELLOW Urine Clarity CLEAR Urine pH 6 5-9 Urine Specific [place] 1.020 1.016-1.022 Urine Protein NEGATIVE NEGATIVE Urine Glucose (UA) NEGATIVE NEGATIVE Urine Ketones 2+ H NEGATIVE Urine Nitrite NEGATIVE NEGATIVE Urine Bilirubin NEGATIVE NEGATIVE Urine Urobilinogen NORMAL NORMAL MG/DL Urine Leukocyte Esterase 1+ H NEGATIVE Urine RBC (Auto) 2+ H NEGATIVE Urine RBC 0-2 /HPF Urine WBC 2-5 /HPF Urine Squamous Epithelial Cells 5-10 /HPF Urine Crystals NONE /LPF Urine Bacteria TRACE /HPF Urine Casts NONE /LPF Urine Mucus SMALL H /LPF Urine Yeast FEW H /HPF Urine Culture Indicated NO My Orders Orders - NOHEMI NAVARRO Saline Lock/Iv-Start (01/01/17 22:05) Cbc With Automated Diff (01/01/17 22:05) Comprehensive Metabolic Panel (01/01/17 22:05) Hcg,Qualitative Serum (01/01/17 22:05) Lipase (01/01/17 22:05) Ua Culture If Indicated (01/01/17 22:05) Iohexol Injection (Omnipaque 350 Mg/Ml 1 (01/01/17 22:15) Ns (Ivpb) (Sodium Chloride 0.9% Ivpb Bag (01/01/17 22:15) Pharmacy Communication (Pharmacy Communi (01/01/17 22:10) Manual Differential (01/01/17 22:40) Diazepam Injection (Valium Injection) (01/01/17 23:15) Ketorolac Injection (Toradol Injection) (01/01/17 23:08) Iohexol Injection (Omnipaque 350 Mg/Ml 1 (01/01/17 23:30) Ketorolac Injection (Toradol Injection) (01/02/17 01:04) Ns Iv 1000 Ml (Sodium Chloride 0.9%) (01/02/17 01:05) Vital Signs/I&O Vital Sign - Last 12Hours 01/01/17 01/02/17 22:36 01:25 Temp 97.9 Pulse 109 0 Resp 22 0 B/P (MAP) 112/83 Pulse Ox 99 0 O2 Delivery Room Air Blood Pressure Mean: 93 Departure Communication (Admissions) Progress Notes patient seen and evaluated. I have discussed plan for labs and CT chest/abd/ pelvis with the patient and mother (mother is present in the room). patient verbalizes understanding and wishes to proceed with labs and CT. Patient would like something for the pain. Patient requesting to drink something. I advised the patient that she can not drink or eat until all tests are completed. Patient stating she does not think she can urinate at this time. I have advised her that if she is unable to urinate, we will need to straight cath her. Patient states she would like to try to go to the bathroom before getting a catheter. [id number] notified by Pratik Nuñez RN that patient refused the valium and toradol. I have discussed with the patient that she was not able to lay flat during the exam and that she will need to lay flat for the CT scan. Patient verbalizes understanding and states she would like to do the CT scan without taking any medications prior. CT notified that they can take patient to CT. [id number] staff states patient refused the CT scan. Patient and mother reporting patient is too anxious and having too much abdominal pain to do the CT scan. I have discussed with the patient and her mother that the valium and toradol were ordered to alleviate the anxiety, abdominal muscle spasm, and abdominal pain. Patient again states that she does not do well with strong pain medications. I have explained to the patient that toradol is an IV form of anti-inflammatory medication. Patient continues to refuse the medications. She states she doesn't do well with pain medication (the toradol) and does not want to take the valium. Patient states she "just wants to find out what is causing the pain." I advised the patient that the CT scan is required to further evaluate her symptoms. Patient states "can't I just wait a little while to decide if I can do the CT scan." I advised the patient that due to the "severe pain" and SOA that she is having, CT angio chest and CT abd/pelvis is the standard of care to further evaluate. Patient then starts crying and states "I'm really sorry!" Mother tells the patient "You don't need to be sorry ! They do! They shouldn't be pushing you!" I advised the patient that I will give her 5 minutes to decide if she wants the pain medication and/or if she wants to do the CT scan. [id number] mother presents to the nurse's station and states "WE WANT TO SEE AN APPLE PICKING SUPERVISOR RIGHT NOW AND WE WANT TO SEE A DIFFERENT DOCTOR! I WILL HAVE YOUR JOB BY TOMORROW!" Mother snaps her fingers and storms off to the exam room. Pratik Nuñez notified of patient and mother requesting to talk to him. [id number] patient care transferred to Dr. Bull. Impression Impression: Primary Impression: Left against medical advice Disposition: 07 AGAINST MEDICAL ADVICE Condition: Against Medical Advice Departure-Patient Inst. Referrals: ISAAK STEPHEN MD (PCP/Family) Primary Care Physician NOHEMI NAVARRO Jan 01, 2017 22:46
[2017-01-01 22:54] LABS: BASOPHILS % (AUTO) 0 % (0-10); EOSINOPHILS % (AUTO) 0 % (0-10); LYMPHOCYTES # (AUTO) 0.4 X 10^3 (1.0-4.0); LYMPHOCYTES % (AUTO) 3 % (12-44); MEAN CORPUSCULAR HEMOGLOBIN 27 PG (25-34); MEAN CORPUSCULAR HGB CONC 33 G/DL (32-36); MEAN CORPUSCULAR VOLUME 82 FL (80-99); MEAN PLATELET VOLUME 11.6 FL (7.4-10.4); MONOCYTES # (AUTO) 0.9 X 10^3 (0.0-1.0); MONOCYTES % (AUTO) 5 % (0-12); NEUTROPHILS # (AUTO) 14.8 X 10^3 (1.8-7.8); NEUTROPHILS % (AUTO) 92 % (42-75); PLATELET COUNT 197 10^3/uL (130-400); RED BLOOD COUNT 4.87 10^6/uL (4.35-5.85); RED CELL DISTRIBUTION WIDTH 13.7 % (10.0-14.5); WHITE BLOOD COUNT 16.1 10^3/uL (4.3-11.0)
[2017-01-01 23:06] LABS: BAND NEUTROPHILS 19 %; BASOPHILS % (MANUAL) 0 %; EOSINOPHILS % (MANUAL) 0 %; LYMPHOCYTES % (MANUAL) 9 %; NEUTROPHILS % (MANUAL) 70 %
[2017-01-01] MEDS ORDERED: KETOROLAC 30 MG/ML VIAL IVP STA (23:08)
[2017-01-01 23:12] LABS: ALANINE AMINOTRANSFERASE 76 U/L (0-55); ALBUMIN 4.4 GM/DL (3.2-4.5); ANION GAP 9 MMOL/L (5-14); ASPARTATE AMINO TRANSFERASE 48 U/L (5-34); BILIRUBIN,TOTAL 0.8 MG/DL (0.1-1.0); BLOOD UREA NITROGEN 9 MG/DL (7-18); BUN/CREATININE RATIO 11; CALCIUM 8.8 MG/DL (8.5-10.1); CARBON DIOXIDE 23 MMOL/L (21-32); CHLORIDE 106 MMOL/L (98-107); CREATININE SERUM 0.84 MG/DL (0.60-1.30); GFR ESTIMATED > 60; GLUCOSE 166 MG/DL (70-105); LIPASE 13 U/L (8-78); POTASSIUM 3.7 MMOL/L (3.6-5.0); SODIUM 138 MMOL/L (135-145); TOTAL PROTEIN 7.3 GM/DL (6.4-8.2)
[2017-01-01] MEDS ORDERED: DIAZEPAM INJ 10 MG/2 ML (VALIUM) SYR IV ONE (23:15)
[2017-01-01 23:24] LABS: BILIRUBIN,URINE NEGATIVE (NEGATIVE); KETONES,URINE 2+ (NEGATIVE); LEUKOCYTE ESTERASE ,URINE 1+ (NEGATIVE); NITRITE,URINE NEGATIVE (NEGATIVE); PH,URINE 6 (5-9); PROTEIN,URINE NEGATIVE (NEGATIVE); UROBILINOGEN,URINE NORMAL (NORMAL)
[2017-01-01] MEDS ORDERED: IOHEXOL 350 MG/ML 150 ML (OMNIPAQUE 350) VIAL IV ONE (23:30)
[2017-01-01 23:52] LABS: YEAST,URINE FEW /HPF
[2017-01-02] MEDS ORDERED: KETOROLAC 30 MG/ML VIAL ONE (01:04)
[2017-01-02] MEDS ORDERED: NS IV 1000 ML 1,000 ML ONE (01:05)
[2017-01-02 01:25] VITALS: BP 0/0
[2017-01-02] MEDS ORDERED: NS IV 1000 ML 1,000 ML IV SCH (01:30)
[2017-01-02] MEDS ORDERED: KETOROLAC 30 MG/ML VIAL IVP ONE (01:30)
--- OUTSIDE RECORDS SUMMARY | 2017-01-02 08:56 | XMS REPORT ---
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
--- OUTSIDE RECORDS SUMMARY | 2017-01-02 08:56 | XMS REPORT ---
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 13349609 Problem Unspecified osteoporosis 733.00 Active 82489047 Problem Migraine without status migrainosus, not intractable, unspecified migraine type G43.909 Active 63291601 Problem Panic disorder with agoraphobia and mild panic attacks F40.01 Active 93348553 ALLERGIES No Information SOCIAL HISTORY Never Assessed PLAN OF CARE Activity Details Follow Up 2 Weeks Reason:anxiety VITAL SIGNS MEDICATIONS Unknown Medications RESULTS No Results PROCEDURES Procedure Date Ordered Result Body Site Psychotherapy, patient &/family, 30 minutes, established patient Apr 22, 2016 IMMUNIZATIONS No Known Immunizations MEDICAL (GENERAL) HISTORY Type Description Date Medical History hernia at age 3 months old Medical History osteoporosis Medical History fibromyalgia Medical History hematologic disorder-platelet dysfunction blood clots fast Medical History Vitamin D deficiency stable Medical History Anxiety/ panic attacks Medical History Nonspecific reaction to tuberculin skin test without active tuberculosis Surgical History bilateral inguinal with mesh placement 3 months old Surgical History otolaryngologic surgery Surgical History tonsillectomy Hospitalization History Hospitalization for surgery only
--- OUTSIDE RECORDS SUMMARY | 2017-01-02 08:57 | XMS REPORT ---
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 48093002 Problem Unspecified osteoporosis 733.00 Active 50330902 Problem Migraine without status migrainosus, not intractable, unspecified migraine type G43.909 Active 29167382 Problem Panic disorder with agoraphobia and mild panic attacks F40.01 Active 71919327 ALLERGIES No Information SOCIAL HISTORY Never Assessed PLAN OF CARE Activity Details Follow Up 4 Weeks, 4 Weeks Reason: VITAL SIGNS Height 65 in 2016-05-01 Weight 121.5 lbs 2016-05-01 Temperature 98.0 degrees Fahrenheit 2016-05-01 Heart Rate 78 bpm 2016-05-01 Respiratory Rate 20 2016-05-01 BMI 20.219 kg/m2 2016-05-01 Blood pressure systolic 120 mmHg 2016-05-01 Blood pressure diastolic 76 mmHg 2016-05-01 MEDICATIONS Medication Instructions Dosage Frequency Start Date End Date Duration Status Vitamin 27-0.8 MG Active RESULTS No Results PROCEDURES No Known procedures IMMUNIZATIONS No Known Immunizations MEDICAL (GENERAL) HISTORY [...]
--- OUTSIDE RECORDS SUMMARY | 2017-01-02 08:57 | XMS REPORT ---
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
--- OUTSIDE RECORDS SUMMARY | 2017-01-02 08:57 | XMS REPORT ---
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
--- OUTSIDE RECORDS SUMMARY | 2017-01-02 08:57 | XMS REPORT ---
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
--- OUTSIDE RECORDS SUMMARY | 2017-01-02 08:57 | XMS REPORT ---
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 92969187 Problem Unspecified osteoporosis 733.00 Active 97499915 Problem Migraine without status migrainosus, not intractable, unspecified migraine type G43.909 Active 92834375 Problem Panic disorder with agoraphobia and mild panic attacks F40.01 Active 38093155 ALLERGIES Substance Reaction Event Type Date Status Penicillin V Potassium Unknown Drug Allergy Mar, Active Boniva Unknown Drug Allergy Mar, Active SOCIAL HISTORY No smoking Hx information available PLAN OF CARE Activity Details Follow Up 4W, 4 Weeks Reason: VITAL SIGNS Height 65 in 2016-04-03 Weight 123.4 lbs 2016-04-03 Temperature 98.7 degrees Fahrenheit 2016-04-03 Heart Rate 70 bpm 2016-04-03 Respiratory Rate 18 2016-04-03 BMI 20.535 kg/m2 2016-04-03 Blood pressure systolic 116 mmHg 2016-04-03 Blood pressure diastolic 78 mmHg 2016-04-03 MEDICATIONS Medication Instructions Dosage Frequency Start Date End Date Duration Status Vitamin 27-0.8 MG Active RESULTS Name Result Date Reference Range UA LONG DIP (IN HOUSE) 2016-04-03 Lot # Exp date Clarity clear Color yellow Odor no GLU neg TOMASZ neg KET neg SG 1.015 BLO neg pH 7.5 Protein neg URO 0.2 NIT neg CHEN trace Lot # Exp date TRICHOMONAS (IN HOUSE) 2016-04-03 TRICHOMONAS negative Control + Lot # [id number] Exp date 04/2017 BACTERIAL VAGINOSIS (IN HOUSE) 2016-04-03 RESULTS negative Control + Lot # [id number] Exp date 10/2016 TSH () 2016-04-03 TSH 0.611 0.450-4.500 CBC 2016-04-03 WBC 10.0 3.4-10.8 RBC 4.74 3.77-5.28 Hemoglobin 13.5 11.1-15.9 Hematocrit 39.4 34.0-46.6 MCV 83 79-97 MCH 28.5 26.6-33.0 MCHC 34.3 31.5-35.7 RDW 13.7 12.3-15.4 Platelets 234 150-379 Neutrophils 65 Lymphs 25 Monocytes 9 Eos 1 Basos 0 Neutrophils (Absolute) 6.5 1.4-7.0 Lymphs (Absolute) 2.5 0.7-3.1 Monocytes(Absolute) 0.9 0.1-0.9 Eos (Absolute) 0.1 0.0-0.4 Baso (Absolute) 0.0 0.0-0.2 Immature Granulocytes 0 Immature Grans (Abs) 0.0 0.0-0.1 ANTIBODY SCREEN 2016-04-03 Antibody Screen Negative Negative BLOOD TYPE/RH FACTOR 2016-04-03 ABO Grouping O Rh Factor Positive RUBELLA ANTIBODIES, IgG 2016-04-03 Rubella Antibodies, IgG 4.34 Immune >0.99 CULTURE, GENITAL 2016-04-03 Genital Culture, Routine Final report Result 1 CULTURE, URINE 2016-04-03 Urine Culture, Routine Final report Result 1 No growth Ultrasound : OB, Early <14 WEEKS 2016-04-10 GC/CHLAM PROBE (STATE) 2016-04-03 CHLAMYDIA Neg GC Neg SYPHILIS (STATE) 2016-04-03 HIV (STATE) 2016-04-03 HEP B SURFACE ANTIGEN (STATE) 2016-04-03 HEP B ANTIBODY HEP B ANTIBODY (L) HEP B ANTIBODY ([facility]) PROCEDURES Procedure Date Ordered Related Diagnosis Body Site BLOOD TYPING, ABO Apr 03, 2016 BLOOD TYPING, RH (D) Apr 03, 2016 CULTURE, BACTERIA, OTHER Apr 03, 2016 COMPLETE CBC W/AUTO DIFF WBC Apr 03, 2016 No Charge Apr 03, 2016 URINE CULTURE/COLONY COUNT Apr 03, 2016 RUBELLA ANTIBODY Apr 03, 2016 SOSA VAG, DNA, DIR PROBE Apr 03, 2016 TRICHOMONAS ASSAY W/OPTIC Apr 03, 2016 RBC ANTIBODY SCREEN Apr 03, 2016 Office Visit, Est Pt., Level 3 Apr 03, 2016 URINALYSIS, AUTO, W/O SCOPE Apr 03, 2016 ASSAY THYROID STIM HORMONE Apr 03, 2016 VENIPUNCT, ROUTINE* Apr 03, 2016 IMMUNIZATIONS No Known Immunizations
--- OUTSIDE RECORDS SUMMARY | 2017-01-02 08:58 | XMS REPORT ---
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
--- OUTSIDE RECORDS SUMMARY | 2017-01-02 08:58 | XMS REPORT ---
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
--- OUTSIDE RECORDS SUMMARY | 2017-01-02 08:58 | XMS REPORT ---
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 36684571 Problem Unspecified osteoporosis 733.00 Active 30754013 Problem Migraine without status migrainosus, not intractable, unspecified migraine type G43.909 Active 13168589 Problem Panic disorder with agoraphobia and mild panic attacks F40.01 Active 88632262 ALLERGIES Unknown Allergies SOCIAL HISTORY No smoking Hx information available PLAN OF CARE Activity Details Follow Up Next available Reason:anxiety VITAL SIGNS MEDICATIONS Unknown Medications RESULTS No Results PROCEDURES Procedure Date Ordered Related Diagnosis Body Site Psychotherapy, patient &/family, 45 minutes, established patient Feb 04, 2016 IMMUNIZATIONS No Known Immunizations
--- OUTSIDE RECORDS SUMMARY | 2017-01-02 08:58 | XMS REPORT ---
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 58495126 Problem Unspecified osteoporosis 733.00 Active 50574660 Problem Migraine without status migrainosus, not intractable, unspecified migraine type G43.909 Active 43053452 Problem Panic disorder with agoraphobia and mild panic attacks F40.01 Active 41570506 ALLERGIES Substance Reaction Event Type Date Status Penicillin V Potassium Unknown Drug Allergy May, Active Boniva Unknown Drug Allergy May, Active SOCIAL HISTORY Never Assessed PLAN OF CARE Activity Details Follow Up prn Reason: VITAL SIGNS Height 65 in 2016-05-07 Weight 122.8 lbs 2016-05-07 Heart Rate 100 bpm 2016-05-07 Respiratory Rate 18 2016-05-07 BMI 20.43 kg/m2 2016-05-07 Blood pressure systolic 116 mmHg 2016-05-07 Blood pressure diastolic 74 mmHg 2016-05-07 MEDICATIONS Medication Instructions Dosage Frequency Start Date [...]
== END 2017-01-02 01:25 | disposition left against medical advice (07) ==
LOC: EDUNIT# 22:01 → ER 22:02
DX: R10.84 Generalized abdominal pain (principal); R06.02 Shortness of breath; F41.9 Anxiety disorder, unspecified; Z80.1 Family history of malignant neoplasm of trachea, bronchus and lung; Z80.0 Family history of malignant neoplasm of digestive organs; Z80.3 Family history of malignant neoplasm of breast; Z90.89 Acquired absence of other organs; Z87.19 Personal history of other diseases of the digestive system; Z90.49 Acquired absence of other specified parts of digestive tract
CPT/HCPCS: 36415; 80053; 81000; 83690; 84703; 85007; 85027

== ENCOUNTER 2018-10-16 12:55 | Emergency (ER) | payer MEDICAID ==
[~2018-10-16] VITALS: Ht 162.6 cm; Wt 59.4 kg
[~2018-10-16 12:55] MED LIST changes: -FERR-74 PO; +FERR325T18 PO
--- OUTSIDE RECORDS SUMMARY | 2018-10-16 13:02 | XMS REPORT ---
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 Active 63469926 Problem Constipation, unspecified constipation type K59.00 Active 79815180 Problem Unspecified osteoporosis 733.00 Active 44891134 Problem Panic disorder with agoraphobia and mild panic attacks F40.01 Active 11793669 Problem Migraine without status migrainosus, not intractable, unspecified migraine type G43.909 Active 89807516 ALLERGIES No Information ENCOUNTERS Encounter Location Date Diagnosis [place] [id number] [place] [address] Aug, Panic disorder with agoraphobia and mild panic attacks F40.01 [place] [id number] [place] [address] Aug, [place] [id number] [place] [address] July, [place] [id number] [place] [address] July, Panic disorder with agoraphobia and mild panic attacks F40.01 [place] [id number] [place] [address] May, [place] [address] [address] May, 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 ; Panic disorder with agoraphobia and mild panic attacks F40.01 ; Lightheadedness R42 ; Constipation, unspecified constipation type K59.00 and Low vitamin D level R79.89 [facility] [id number] [place] [id number] Apr, Dental examination Z01.20 and Caries K02.9 [place] [id number] [place] [address] Mar, Panic disorder with agoraphobia and mild panic attacks F40.01 [place] [address] [address] Feb, [facility] [place] [address] [address] Feb, Exudative pharyngitis J02.9 [place] [address] [address] Feb, Panic disorder with agoraphobia and mild panic attacks F40.01 [facility] [place] [address] [address] Jan, Lower abdominal pain R10.30 [facility] [address] [address] Dec, Viral gastroenteritis A08.4 and Sore throat J02.9 [facility] [place] [address] [address] Nov, Ingrown toenail with infection L60.0 and Toe pain, left M79.675 [place] [id number] [place] [address] Oct, Panic disorder with agoraphobia and mild panic attacks F40.01 and 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 [place] [address] [address] Sep, Panic disorder with agoraphobia and mild panic attacks F40.01 and Drug side effects T88.7XXA [place] [address] [address] Sep, [facility] [address] [address] Aug, [facility] [id number] [place] [address] Aug, Panic disorder with agoraphobia and mild panic attacks F40.01 [facility] [id number] [place] [id number] Mar, Encounter for dental exam and cleaning w/o abnormal findings Z01.20 [facility] [id number] [place] [id number] Jan, Dental examination Z01.20 [facility] [id number] [place] [address] Dec, Right upper quadrant pain R10.11 and Colicky epigastric pain R10.13 [place] [id number] [place] [address] Jun, [facility] [id number] [place] [address] May, [facility] [id number] [place] [address] May, care, first in second trimester Z34.02 and 16 weeks gestation of Z3A.16 [place] [id number] [place] [address] 14 May, 2016 [facility] [id number] [place] [address] May, Panic disorder with agoraphobia and mild panic attacks F40.01 [facility] [id number] [place] [address] 23 Apr, 2016 care, first in first trimester Z34.01 and 12 weeks gestation of Z3A.12 [place] [id number] [place] [address] Apr, [facility] [address], [place] [address] Apr, Panic disorder with agoraphobia and mild panic attacks F40.01 [facility] [address], [place] [address] Apr, [facility] [id number] [place] [address] Mar, [facility] [id number] [place] [address] Mar, Normal , first Z34.00 ; 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 ; Nausea and vomiting during O21.9 ; Migraine without status migrainosus, not intractable, unspecified migraine type G43.909 and 8 weeks gestation of Z3A.08 [facility] [id number] [place] [address] Mar, [facility] [id number] [place] [address] Mar, [facility] [id number] [place] [address] Mar, Panic disorder with agoraphobia and mild panic attacks F40.01 [facility] [address] [address] Mar, [facility] [id number] [place] [address] Feb, [facility] [address] [place] [address] Feb, [facility] [id number] [place] [address] Feb, Encounter for test Z32.00 [facility] [address] [place] [address] Feb, Panic disorder with agoraphobia and mild panic attacks F40.01 [facility] [address], [place] [address] Feb, Panic disorder with agoraphobia and mild panic attacks F40.01 [facility] [id number] [place] [address] Feb, Panic disorder with agoraphobia and mild panic attacks F40.01 [facility] [id number] [place] [address] Jan, Panic disorder with agoraphobia and mild panic attacks F40.01 [place] [id number] [place] [address] Jan, Panic disorder with agoraphobia and mild panic attacks F40.01 [facility] [id number] [place] [address] Dec, Panic disorder with agoraphobia and mild panic attacks F40.01 [facility] [id number] [place] [address] Dec, Panic disorder with agoraphobia and mild panic attacks F40.01 [facility] [id number] [place] [address] 29 Nov, 2015 Bug bite, initial encounter W57.XXXA [facility] [id number] [place] [address] Nov, Panic disorder with agoraphobia and mild panic attacks F40.01 [facility] [id number] [place] [address] Nov, Panic disorder with agoraphobia and mild panic attacks F40.01 [place] [id number] [place] [address] 24 Oct, 2015 Panic disorder with agoraphobia and mild panic attacks F40.01 [facility] [id number] [place] [address] Oct, Panic disorder with agoraphobia and mild panic attacks F40.01 [facility] [address] [place] [address] Oct, Panic disorder with agoraphobia and mild panic attacks F40.01 [facility] [id number] [place] [address] Sep, Panic disorder with agoraphobia and mild panic attacks F40.01 [facility] [id number] [place] [address] Sep, Panic disorder F41.0 ; Agoraphobia F40.00 and Generalized anxiety disorder F41.1 [facility] [id number] [place] [address] Oct, Generalized anxiety disorder 300.02 [facility] [id number] [place] [address] Oct, Anxiety 300.00 [facility] [id number] [place] [address] Oct, Anxiety state, unspecified 300.00 and Gallion II diagnosis deferred 799.9 [facility] [id number] [place] [address] Sep, [facility] [id number] [place] [id number] July, Dental examination V72.2 [facility] [id number] [place] [address] Jun, [facility] [id number] [place] [address] Jun, [facility] [id number] [place] [address] May, [facility] [id number] [place] [address] May, [facility] [id number] [place] [address] May, 2014 [facility] [place] [facility] [address] [id number] [place] [address] May, 2014 [facility] [place] [facility] [address] [id number] [place] [address] May, 2014 [facility] [place] [facility] [address] [id number] [place] [address] May, 2014 [facility] [place] [facility] [address] [id number] [place] [address] May, [facility] [place] [facility] [address] [id number] [place] [address] May, [facility] [place] [facility] [address] [id number] [place] [address] Apr, 2014 [facility] [place] [facility] [address] [id number] [place] [address] Apr, 2014 [facility] [place] [facility] [address] [facility] [id number] [place] [address] Apr, 2014 [facility] [place] [facility] [address] [id number] [place] [address] Apr, [facility] [place] [facility] [address] [facility] [id number] [place] [address] Jan, [facility] [place] [facility] [address] [facility] [id number] [place] [address] Jan, [facility] [place] [facility] [address] [id number] [place] [address] Aug, [facility] [place] [facility] [address] [id number] [place] [address] Aug, [facility] [place] [facility] [address] [facility] [id number] [place] [address] Aug, [facility] [place] [facility] [address] [facility] [id number] [place] [address] Aug, [facility] [id number] [address] July, [facility] [address] [place] [address] Jun, [facility] [address] [place] [address] Jun, [facility] [address] [place] [address] Jun, [facility] [address] [place] [address] 28 May, 2012 [facility] [address] [place] [address] 27 May, 2012 [facility] [address], [place] [address] May, [facility] [address] [place] [address] 19 May, 2012 [facility] [address], [place] [address] 16 May, 2012 [facility] [address] [place] [address] 14 May, 2012 IMMUNIZATIONS No Known Immunizations SOCIAL HISTORY Never Assessed REASON FOR VISIT PLAN OF CARE VITAL SIGNS Height 65 in 2014-05-02 Weight 119.29 lbs 2014-05-02 Temperature 98.8 degrees Fahrenheit 2014-05-02 Heart Rate 66 bpm 2014-05-02 Respiratory Rate 18 2014-05-02 Blood pressure systolic 124 mmHg 2014-05-02 Blood pressure diastolic 72 mmHg 2014-05-02 MEDICATIONS No Known Medications RESULTS No Results PROCEDURES Procedure Date Ordered Result Body Site COMPLETE CBC W/AUTO DIFF WBC May 02, 2014 DXA BONE DENSITY, AXIAL May 02, 2014 FIBRINOGEN May 02, 2014 ASSAY THYROID STIM HORMONE May 02, 2014 COMPREHEN METABOLIC PANEL May 02, 2014 US EXAM, PELVIC, COMPLETE May 02, 2014 X-RAY EXAM OF LOWER SPINE May 02, 2014 ASSAY OF VITAMIN D May 02, 2014 X-RAY EXAM SACROILIAC JOINTS May 02, 2014 VENIPUNCT, ROUTINE* May 02, 2014 INSTRUCTIONS MEDICATIONS ADMINISTERED No Known Medications MEDICAL (GENERAL) HISTORY Type Description Date Medical [...] Surgical History otolaryngologic surgery Surgical History tonsillectomy Surgical History Cholecystectomy Hospitalization History Hospitalization for surgery only Hospitalization History Childbirth
--- OUTSIDE RECORDS SUMMARY | 2018-10-16 13:02 | XMS REPORT ---
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 53408713 Problem Constipation, unspecified constipation type K59.00 Active 05133646 Problem Unspecified osteoporosis 733.00 Active 63916427 Problem Panic disorder with agoraphobia and mild panic attacks F40.01 Active 63565417 Problem Migraine without status migrainosus, not intractable, unspecified migraine type G43.909 Active 11507332 ALLERGIES No Information ENCOUNTERS Encounter Location Date Diagnosis [place] [id number] [place] [address] Aug, Panic disorder with agoraphobia and mild panic attacks F40.01 [place] [id number] [place] [address] Aug, [place] [id number] [place] [address] July, [place] [id number] [place] [address] July, Panic disorder with agoraphobia and mild panic attacks F40.01 [place] [id number] [place] [address] May, [place] [address] [address] May, 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 ; Panic disorder with agoraphobia and mild panic attacks F40.01 ; Lightheadedness R42 ; Constipation, unspecified constipation type K59.00 and Low vitamin D level R79.89 [facility] [id number] [place] [id number] Apr, Dental examination Z01.20 and Caries K02.9 [place] [id number] [place] [address] Mar, Panic disorder with agoraphobia and mild panic attacks F40.01 [place] [address] [address] Feb, [facility] [place] [address] [address] Feb, Exudative pharyngitis J02.9 [place] [address] [address] Feb, Panic disorder with agoraphobia and mild panic attacks F40.01 [facility] [place] [address] [address] Jan, Lower abdominal pain R10.30 [facility] [address] [address] Dec, Viral gastroenteritis A08.4 and Sore throat J02.9 [facility] [place] [address] [address] Nov, Ingrown toenail with infection L60.0 and Toe pain, left M79.675 [place] [id number] [place] [address] Oct, Panic disorder with agoraphobia and mild panic attacks F40.01 and 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 [address] [address] Aug, [facility] [id number] [place] [address] Aug, Panic disorder with agoraphobia and mild panic attacks F40.01 [facility] [id number] [place] [id number] Mar, Encounter for dental exam and cleaning w/o abnormal findings Z01.20 [facility] [id number] [place] [id number] Jan, Dental examination Z01.20 [facility] [id number] [place] [address] Dec, Right upper quadrant pain R10.11 and Colicky epigastric pain R10.13 [place] [id number] [place] [address] Jun, [facility] [id number] [place] [address] May, [facility] [id number] [place] [address] May, care, first in second trimester Z34.02 and 16 weeks gestation of Z3A.16 [place] [id number] [place] [address] 14 May, 2016 [facility] [id number] [place] [address] May, Panic disorder with agoraphobia and mild panic attacks F40.01 [facility] [id number] [place] [address] 23 Apr, 2016 care, first in first trimester Z34.01 and 12 weeks gestation of Z3A.12 [place] [id number] [place] [address] Apr, [facility] [address], [place] [address] Apr, Panic disorder with agoraphobia and mild panic attacks F40.01 [facility] [address], [place] [address] Apr, [facility] [id number] [place] [address] Mar, 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 [id number] [place] [address] Mar, [facility] [id number] [place] [address] Mar, [facility] [id number] [place] [address] Mar, Panic disorder with agoraphobia and mild panic attacks F40.01 [facility] [address] [address] Mar, [facility] [id number] [place] [address] Feb, [facility] [id number] [place] [address] Feb, [facility] [id number] [place] [address] Feb, Encounter for test Z32.00 [facility] [id number] [place] [address] Feb, Panic disorder with agoraphobia and mild panic attacks F40.01 [facility] [address], [place] [address] Feb, Panic disorder with agoraphobia and mild panic attacks F40.01 [facility] [id number] [place] [address] Feb, Panic disorder with agoraphobia and mild panic attacks F40.01 [facility] [id number] [place] [address] Jan, Panic disorder with agoraphobia and mild panic attacks F40.01 [place] [id number] [place] [address] Jan, Panic disorder with agoraphobia and mild panic attacks F40.01 [facility] [address] [id number] [place] [address] Dec, Panic disorder with agoraphobia and mild panic attacks F40.01 [facility] [address] [id number] [place] [address] Dec, Panic disorder with agoraphobia and mild panic attacks F40.01 [facility] [id number] [place] [address] 29 Nov, 2015 Bug bite, initial encounter W57.XXXA [facility] [id number] [place] [address] Nov, Panic disorder with agoraphobia and mild panic attacks F40.01 [facility] [id number] [place] [address] Nov, Panic disorder with agoraphobia and mild panic attacks F40.01 [place] [id number] [place] [address] 24 Oct, 2015 Panic disorder with agoraphobia and mild panic attacks F40.01 [facility] [id number] [place] [address] Oct, Panic disorder with agoraphobia and mild panic attacks F40.01 [facility] [id number] [place] [address] Oct, Panic disorder with agoraphobia and mild panic attacks F40.01 [facility] [id number] [place] [address] Sep, Panic disorder with agoraphobia and mild panic attacks F40.01 [facility] [id number] [place] [address] Sep, Panic disorder F41.0 ; Agoraphobia F40.00 and Generalized anxiety disorder F41.1 [facility] [id number] [place] [address] Oct, Generalized anxiety disorder 300.02 [facility] [address] [id number] [place] [address] Oct, Anxiety [address].00 [facility] [id number] [place] [address] Oct, Anxiety state, unspecified 300.00 and Aniwa II diagnosis deferred 799.9 [facility] [address] [id number] [place] [address] Sep, [facility] [id number] [place] [phone] July, Dental examination V72.2 [facility] [address] [id number] [place] [address] Jun, [facility] [address] [id number] [place] [address] Jun, [facility] [id number] [place] [address] May, [facility] [id number] [place] [address] May, [facility] [id number] [place] [address] May, 2014 [facility] [place] [facility] [address] [id number] [place] [address] May, 2014 [facility] [place] [facility] [address] [id number] [place] [address] May, 2014 [facility] [place] [facility] [address] [id number] [place] [address] May, 2014 [facility] [place] [facility] [address] [id number] [place] [address] May, [facility] [place] [facility] [address] [id number] [place] [address] May, [facility] [place] [facility] [address] [id number] [place] [address] Apr, 2014 [facility] [place] [facility] [address] [id number] [place] [address] Apr, 2014 [facility] [place] [facility] [address] [facility] [id number] [place] [address] Apr, 2014 [facility] [place] [facility] [address] [id number] [place] [address] Apr, [facility] [place] [facility] [address] [facility] [id number] [place] [address] Jan, [facility] [place] [facility] [address] [facility] [id number] [place] [address] Jan, [facility] [place] [facility] [address] [id number] [place] [address] Aug, [facility] [place] [facility] [address] [id number] [place] [address] Aug, [facility] [place] [facility] [address] [facility] [id number] [place] [address] Aug, [facility] [place] [facility] [address] [facility] [id number] [place] [address] Aug, [facility] [id number] [address] July, [facility] [address] [address] Jun, [facility] [address], [place] [address] Jun, [facility] [address], [place] [address] Jun, [facility] [address], [place] [address] May, [facility] [address] [address] May, [facility] [address] [address] May, [facility] [address] [address] May, [facility] [address], [place] [address] 16 May, 2012 [facility] [address], [place] [address] 14 May, 2012 IMMUNIZATIONS No Known Immunizations SOCIAL HISTORY Never Assessed REASON FOR VISIT PLAN OF CARE VITAL SIGNS Height 65 in 2014-05-24 Weight 117.71 lbs 2014-05-24 Temperature 97.8 degrees Fahrenheit 2014-05-24 Heart Rate 80 bpm 2014-05-24 Respiratory Rate 2014-05-24 Blood pressure systolic 120 mmHg 2014-05-24 Blood pressure diastolic 78 mmHg 2014-05-24 MEDICATIONS No Known Medications RESULTS No Results PROCEDURES No Known procedures INSTRUCTIONS MEDICATIONS ADMINISTERED No Known Medications MEDICAL [...]
--- OUTSIDE RECORDS SUMMARY | 2018-10-16 13:03 | XMS REPORT ---
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 Active 88221925 Problem Constipation, unspecified constipation type K59.00 Active 04645487 Problem Unspecified osteoporosis 733.00 Active 30688480 Problem Panic disorder with agoraphobia and mild panic attacks F40.01 Active 93603216 Problem Migraine without status migrainosus, not intractable, unspecified migraine type G43.909 Active 12820443 ALLERGIES No Information ENCOUNTERS Encounter Location Date Diagnosis [place] [id number] [place] [address] Aug, Panic disorder with agoraphobia and mild panic attacks F40.01 [place] [id number] [place] [address] Aug, [place] [id number] [place] [address] July, [place] [id number] [place] [address] July, Panic disorder with agoraphobia and mild panic attacks F40.01 [place] [id number] [place] [address] May, [place] [address] [address] May, 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 ; Panic disorder with agoraphobia and mild panic attacks F40.01 ; Lightheadedness R42 ; Constipation, unspecified constipation type K59.00 and Low vitamin D level R79.89 [facility] [id number] [place] [id number] Apr, Dental examination Z01.20 and Caries K02.9 [place] [id number] [place] [address] Mar, Panic disorder with agoraphobia and mild panic attacks F40.01 [place] [address] [address] Feb, [facility] [place] [address] [address] Feb, Exudative pharyngitis J02.9 [place] [address] [address] Feb, Panic disorder with agoraphobia and mild panic attacks F40.01 [facility] [place] [address] [address] Jan, Lower abdominal pain R10.30 [facility] [address] [address] Dec, Viral gastroenteritis A08.4 and Sore throat J02.9 [facility] [place] [address] [address] Nov, Ingrown toenail with infection L60.0 and Toe pain, left M79.675 [place] [id number] [place] [address] Oct, Panic disorder with agoraphobia and mild panic attacks F40.01 and 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 [place] [address] [address] Sep, Panic disorder with agoraphobia and mild panic attacks F40.01 and Drug side effects T88.7XXA [place] [address] [address] Sep, [facility] [address] [address] Aug, [facility] [id number] [place] [address] Aug, Panic disorder with agoraphobia and mild panic attacks F40.01 [facility] [id number] [place] [id number] Mar, Encounter for dental exam and cleaning w/o abnormal findings Z01.20 [facility] [id number] [place] [id number] Jan, Dental examination Z01.20 [facility] [id number] [place] [address] Dec, Right upper quadrant pain R10.11 and Colicky epigastric pain R10.13 [place] [id number] [place] [address] Jun, [facility] [id number] [place] [address] May, [facility] [id number] [place] [address] May, care, first in second trimester Z34.02 and 16 weeks gestation of Z3A.16 [place] [id number] [place] [address] 14 May, 2016 [facility] [id number] [place] [address] May, Panic disorder with agoraphobia and mild panic attacks F40.01 [facility] [id number] [place] [address] 23 Apr, 2016 care, first in first trimester Z34.01 and 12 weeks gestation of Z3A.12 [place] [id number] [place] [address] Apr, [facility] [address], [place] [address] Apr, Panic disorder with agoraphobia and mild panic attacks F40.01 [facility] [address], [place] [address] Apr, [facility] [id number] [place] [address] Mar, [facility] [id number] [place] [address] Mar, Normal , first Z34.00 ; 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 ; Nausea and vomiting during O21.9 ; Migraine without status migrainosus, not intractable, unspecified migraine type G43.909 and 8 weeks gestation of Z3A.08 [facility] [id number] [place] [address] Mar, [facility] [id number] [place] [address] Mar, [facility] [id number] [place] [address] Mar, Panic disorder with agoraphobia and mild panic attacks F40.01 [facility] [address] [place] [address] Mar, [facility] [id number] [place] [address] Feb, [facility] [id number] [place] [address] Feb, [facility] [id number] [place] [address] Feb, Encounter for test Z32.00 [facility] [address] [place] [address] Feb, Panic disorder with agoraphobia and mild panic attacks F40.01 [facility] [address], [place] [address] Feb, Panic disorder with agoraphobia and mild panic attacks F40.01 [facility] [id number] [place] [address] Feb, Panic disorder with agoraphobia and mild panic attacks F40.01 [facility] [id number] [place] [address] Jan, Panic disorder with agoraphobia and mild panic attacks F40.01 [place] [id number] [place] [address] Jan, Panic disorder with agoraphobia and mild panic attacks F40.01 [facility] [id number] [place] [address] Dec, Panic disorder with agoraphobia and mild panic attacks F40.01 [facility] [id number] [place] [address] Dec, Panic disorder with agoraphobia and mild panic attacks F40.01 [facility] [id number] [place] [address] 29 Nov, 2015 Bug bite, initial encounter W57.XXXA [facility] [id number] [place] [address] Nov, Panic disorder with agoraphobia and mild panic attacks F40.01 [facility] [id number] [place] [address] Nov, Panic disorder with agoraphobia and mild panic attacks F40.01 [place] [id number] [place] [address] 24 Oct, 2015 Panic disorder with agoraphobia and mild panic attacks F40.01 [facility] [id number] [place] [address] Oct, Panic disorder with agoraphobia and mild panic attacks F40.01 [facility] [address] [place] [address] Oct, Panic disorder with agoraphobia and mild panic attacks F40.01 [facility] [id number] [place] [address] Sep, Panic disorder with agoraphobia and mild panic attacks F40.01 [facility] [id number] [place] [address] Sep, Panic disorder F41.0 ; Agoraphobia F40.00 and Generalized anxiety disorder F41.1 [facility] [id number] [place] [address] Oct, Generalized anxiety disorder 300.02 [facility] [id number] [place] [address] Oct, Anxiety 300.00 [facility] [id number] [place] [address] Oct, Anxiety state, unspecified 300.00 and [place] II diagnosis deferred 799.9 [facility] [id number] [place] [address] Sep, [facility] [id number] [place] [id number] July, Dental examination V72.2 [facility] [id number] [place] [address] Jun, [facility] [id number] [place] [address] Jun, [facility] [id number] [place] [address] May, [facility] [id number] [place] [address] May, [facility] [id number] [place] [address] May, 2014 [facility] [place] [facility] [address] [id number] [place] [address] May, 2014 [facility] [place] [facility] [address] [id number] [place] [address] May, 2014 [facility] [place] [facility] [address] [id number] [place] [address] May, 2014 [facility] [place] [facility] [address] [id number] [place] [address] May, [facility] [place] [facility] [address] [id number] [place] [address] May, [facility] [place] [facility] [address] [id number] [place] [address] Apr, 2014 [facility] [place] [facility] [address] [id number] [place] [address] Apr, 2014 [facility] [place] [facility] [address] [facility] [id number] [place] [address] Apr, 2014 [facility] [place] [facility] [address] [id number] [place] [address] Apr, [facility] [place] [facility] [address] [facility] [facility] [id number] [place] [address] Jan, [facility] [place] [facility] [address] [facility] [facility] [id number] [place] [address] Jan, [facility] [place] [facility] [address] [id number] [place] [address] Aug, [facility] [place] [facility] [address] [id number] [place] [address] Aug, [facility] [place] [facility] [address] [facility] [facility] [id number] [place] [address] Aug, [facility] [place] [facility] [address] [facility] [facility] [id number] [place] [address] Aug, [facility] [id number] [place] [address] July, [facility] [address], [place] [address] Jun, [facility] [address], [place] [address] Jun, [facility] [address], [place] [address] Jun, [facility] [address], [place] [address] 28 May, 2012 [facility] [address], [place] [address] May, [facility] [address] [place] [address] May, [facility] [address], [place] [address] May, [facility] [address] [place] [address] 16 May, 2012 [facility] [address], [place] [address] 14 May, 2012 IMMUNIZATIONS No Known Immunizations SOCIAL HISTORY Never Assessed REASON FOR VISIT PLAN OF CARE VITAL SIGNS MEDICATIONS No Known Medications RESULTS No Results [...]
--- OUTSIDE RECORDS SUMMARY | 2018-10-16 13:03 | XMS REPORT ---
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 Active 93058941 Problem Constipation, unspecified constipation type K59.00 Active 46043187 Problem Unspecified osteoporosis 733.00 Active 99824634 Problem Panic disorder with agoraphobia and mild panic attacks F40.01 Active 04770930 Problem Migraine without status migrainosus, not intractable, unspecified migraine type G43.909 Active 92930014 ALLERGIES Substance Reaction Event Type Date Status Boniva Unknown Drug Allergy Jun, Active Penicillins Unknown Non Drug Allergy Jun, Active ENCOUNTERS Encounter Location Date Diagnosis [place] [id number] [place] [address] Aug, Panic disorder with agoraphobia and mild panic attacks F40.01 [place] [id number] [place] [address] Aug, [place] [id number] [place] [address] July, [place] [id number] [place] [address] July, Panic disorder with agoraphobia and mild panic attacks F40.01 [place] [id number] [place] [address] May, [place] [id number] [place] [address] May, 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 [place] [address] [address] Feb, Exudative pharyngitis J02.9 [place] [address] [address] Feb, Panic disorder with agoraphobia and mild panic attacks F40.01 [facility] [place] [address] [address] Jan, Lower abdominal pain R10.30 [facility] [address] [address] Dec, Viral gastroenteritis A08.4 and Sore throat J02.9 [facility] [place] [id number] [place] [address] 06 Nov, 2017 Ingrown toenail with infection L60.0 and Toe pain, left M79.675 [place] [id number] [place] [address] Oct, Panic disorder with agoraphobia and mild panic attacks F40.01 and 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 [place] [address] [address] Sep, Panic disorder with agoraphobia and mild panic attacks F40.01 and Drug side effects T88.7XXA [place] [address] [address] Sep, [facility] [address] [address] Aug, [facility] [address], [place] [address] Aug, Panic disorder with agoraphobia and mild panic attacks F40.01 [facility] [address] [place] [id number] Mar, Encounter for dental exam and cleaning w/o abnormal findings Z01.20 [facility] [address] [place] [id number] [place] [id number] Jan, Dental examination Z01.20 [place] [id number] [place] [address] 06 Dec, 2016 Right upper quadrant pain R10.11 and Colicky epigastric pain R10.13 [place] [id number] [place] [address] Jun, [place] [address] [address] May, [place] [id number] [place] [address] May, care, first in second trimester Z34.02 and 16 weeks gestation of Z3A.16 [address], [place] [address] 14 May, 2016 [place] [address], [place] [address] May, Panic disorder with agoraphobia and mild panic attacks F40.01 [place] [address] [place] [address] Apr, care, first in first trimester Z34.01 and 12 weeks gestation of Z3A.12 [address] [address] 17 Apr, 2016 [facility] [address], [place] [address] Apr, Panic disorder with agoraphobia and mild panic attacks F40.01 [facility] [address] [place] [address] Apr, [facility] [id number] [place] [address] Mar, [facility] [id number] [place] [address] Mar, Normal , first Z34.00 ; 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 [address], [place] [address] Mar, [facility] [id number] [place] [address] Feb, [facility] [address] [place] [address] Feb, [facility] [id number] [place] [address] Feb, Encounter for test Z32.00 [facility] [address], [place] [address] Feb, Panic disorder with agoraphobia and mild panic attacks F40.01 [facility] [address], [place] [address] Feb, Panic disorder with agoraphobia and mild panic attacks F40.01 [place] [id number] [place] [address] Feb, Panic disorder with agoraphobia and mild panic attacks F40.01 [facility] [id number] [place] [address] Jan, Panic disorder with agoraphobia and mild panic attacks F40.01 [place] [id number] [place] [address] Jan, Panic disorder with agoraphobia and mild panic attacks F40.01 [place] [id number] [place] [address] Dec, Panic disorder with agoraphobia and mild panic attacks F40.01 [place] [id number] [place] [address] Dec, Panic disorder with agoraphobia and mild panic attacks F40.01 [facility] [id number] [place] [address] 29 Nov, 2015 Bug bite, initial encounter W57.XXXA [place] [id number] [address] Nov, Panic disorder with agoraphobia and mild panic attacks F40.01 [place] [address] [place] [address] Nov, Panic disorder with agoraphobia and mild panic attacks F40.01 [place] [id number] [place] [address] 24 Oct, 2015 Panic disorder with agoraphobia and mild panic attacks F40.01 [facility] [address], [place] [address] 15 Oct, 2015 Panic disorder with agoraphobia and mild panic attacks F40.01 [facility] [id number] [place] [address] Oct, Panic disorder with agoraphobia and mild panic attacks F40.01 [facility] [id number] [place] [address] Sep, Panic disorder with agoraphobia and mild panic attacks F40.01 [facility] [id number] [place] [address] Sep, Panic disorder F41.0 ; Agoraphobia F40.00 and Generalized anxiety disorder F41.1 [facility] [address] [address] Oct, Generalized anxiety disorder 300.02 [facility] [id number] [place] [address] Oct, Anxiety 300.00 [facility] [id number] [place] [address] Oct, Anxiety state, unspecified 300.00 and Dear[place] II diagnosis deferred 799.9 [facility] [id number] [place] [address] Sep, [facility] [address] [id number] [place] [id number] July, Dental examination V72.2 [facility] [id number] [place] [address] Jun, [facility] [id number] [place] [address] Jun, [facility] [address] [address] May, [facility] [id number] [place] [address] May, [facility] [address] [address] May, [facility] [place] [facility] [address] [id number] [place] [address] May, [facility] [place] [facility] [address] [id number] [place] [address] May, [facility] [place] [facility] [address] [facility] [id number] [place] [address] May, [facility] [place] [facility] [address] [id number] [place] [address] May, [facility] [place] [facility] [address] [id number] [place] [address] May, [facility] [place] [facility] [address] [id number] [place] [address] Apr, 2014 [facility] [place] [facility] [address] [facility] [id number] [place] [address] Apr, 2014 [facility] [place] [facility] [address] [id number] [place] [address] Apr, 2014 [facility] [place] [facility] [address] [id number] [place] [address] Apr, [facility] [place] [facility] [address] [facility] [id number] [place] [address] Jan, [facility] [place] [facility] [address] [id number] [place] [address] Jan, [facility] [place] [facility] [address] [id number] [place] [address] Aug, [facility] [place] [facility] [address] [id number] [place] [address] Aug, [facility] [place] [facility] [address] [facility] [id number] [place] [address] Aug, [facility] [place] [facility] [address] [facility] [id number] [place] [address] Aug, [facility] [place] [facility] [id number] [address] July, [facility] [id number] [address] Jun, [facility] [address], [place] [address] Jun, [facility] [address], [place] [address] Jun, [facility] [address], [place] [address] May, [facility] [address], [place] [address] May, [facility] [address], [place] [address] May, [facility] [address], [place] [address] May, [facility] [id number] [address] May, [facility] [address], [place] [address] May, IMMUNIZATIONS No Known Immunizations SOCIAL HISTORY Never Assessed REASON FOR VISIT EMR-[facility] PLAN OF CARE VITAL SIGNS MEDICATIONS Medication Instructions Dosage Frequency Start Date End Date Duration Status buspirone 7.5 mg take 1 tablet by Oral route 2 times per day PRN 1/2- 1 BID PRN May, Active Vitamin D2 50,000 unit take 1 capsule by Oral route 2 times per week for 8 weeks May, Active Calcium 600 600 mg (1,500 mg) 1 Tablet 1 time per day May, Active RESULTS No Results PROCEDURES No Known [...]
--- OUTSIDE RECORDS SUMMARY | 2018-10-16 13:03 | XMS REPORT ---
Author Author ALISHA MCCOLLUMNYA [facility] Address [address] [place] [address] Care Team Providers Care Hr Internship Name Role Phone CHUN HANNAH Unavailable PROBLEMS Type Condition ICD9-CM Code ANQ04-MB Code Onset Dates Condition Status SNOMED Code Problem 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 Active 16837501 Problem Constipation, unspecified constipation type K59.00 Active 62933464 Problem Unspecified osteoporosis 733.00 Active 65162535 Problem Panic disorder with agoraphobia and mild panic attacks F40.01 Active 52068079 Problem Migraine without status migrainosus, not intractable, unspecified migraine type G43.909 Active 39729961 ALLERGIES No Information ENCOUNTERS Encounter Location Date Diagnosis [place] [id number] [place] [address] Aug, Panic disorder with agoraphobia and mild panic attacks F40.01 [place] [id number] [place] [address] Aug, [place] [id number] [place] [address] July, [place] [id number] [place] [address] July, Panic disorder with agoraphobia and mild panic attacks F40.01 [place] [id number] [place] [address] May, [place] [address] [address] May, 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 ; Panic disorder with agoraphobia and mild panic attacks F40.01 ; Lightheadedness R42 ; Constipation, unspecified constipation type K59.00 and Low vitamin D level R79.89 [facility] [id number] [place] [phone] Apr, Dental examination Z01.20 and Caries K02.9 [place] [id number] [place] [address] Mar, Panic disorder with agoraphobia and mild panic attacks F40.01 [place] [address] [address] Feb, [facility] [place] [address] [address] Feb, Exudative pharyngitis J02.9 [place] [address] [address] Feb, Panic disorder with agoraphobia and mild panic attacks F40.01 [facility] [place] [address] [address] Jan, Lower abdominal pain R10.30 [facility] [address] [address] Dec, Viral gastroenteritis A08.4 and Sore throat J02.9 [facility] [place] [address] [address] Nov, Ingrown toenail with infection L60.0 and Toe pain, left M79.675 [place] [id number] [place] [address] Oct, Panic disorder with agoraphobia and mild panic attacks F40.01 and 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 [place] [address] [address] Sep, Panic disorder with agoraphobia and mild panic attacks F40.01 and Drug side effects T88.7XXA [place] [address] [address] Sep, [facility] [address] [place] [address] Aug, [facility] [id number] [place] [address] Aug, Panic disorder with agoraphobia and mild panic attacks F40.01 [facility] [id number] [place] [phone] Mar, Encounter for dental exam and cleaning w/o abnormal findings Z01.20 [facility] [id number] [place] [phone] Jan, Dental examination Z01.20 [facility] [id number] [place] [address] Dec, Right upper quadrant pain R10.11 and Colicky epigastric pain R10.13 [place] [id number] [place] [address] Jun, [facility] [id number] [place] [address] May, [facility] [id number] [place] [address] May, care, first in second trimester Z34.02 and 16 weeks gestation of Z3A.16 [place] [id number] [place] [address] 14 May, 2016 [facility] [id number] [place] [address] May, Panic disorder with agoraphobia and mild panic attacks F40.01 [facility] [id number] [place] [address] 23 Apr, 2016 care, first in first trimester Z34.01 and 12 weeks gestation of Z3A.12 [place] [id number] [place] [address] Apr, [facility] [address], [place] [address] Apr, Panic disorder with agoraphobia and mild panic attacks F40.01 [facility] [address], [place] [address] Apr, [facility] [id number] [place] [address] Mar, [facility] [id number] [place] [address] Mar, Normal , first Z34.00 ; 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 [address], [place] [address] Mar, [facility] [id number] [place] [address] Feb, [facility] [id number] [place] [address] Feb, [facility] [id number] [place] [address] Feb, Encounter for test Z32.00 [facility] [id number] [place] [address] Feb, Panic disorder with agoraphobia and mild panic attacks F40.01 [facility] [address], [place] [address] Feb, Panic disorder with agoraphobia and mild panic attacks F40.01 [facility] [id number] [place] [address] Feb, Panic disorder with agoraphobia and mild panic attacks F40.01 [facility] [id number] [place] [address] Jan, Panic disorder with agoraphobia and mild panic attacks F40.01 [place] [id number] [place] [address] Jan, Panic disorder with agoraphobia and mild panic attacks F40.01 [facility] [id number] [place] [address] Dec, Panic disorder with agoraphobia and mild panic attacks F40.01 [facility] [id number] [place] [address] Dec, Panic disorder with agoraphobia and mild panic attacks F40.01 [facility] [id number] [place] [address] 29 Nov, 2015 Bug bite, initial encounter W57.XXXA [facility] [id number] [place] [address] Nov, Panic disorder with agoraphobia and mild panic attacks F40.01 [facility] [id number] [place] [address] Nov, Panic disorder with agoraphobia and mild panic attacks F40.01 [place] [id number] [place] [address] 24 Oct, 2015 Panic disorder with agoraphobia and mild panic attacks F40.01 [facility] [id number] [place] [address] Oct, Panic disorder with agoraphobia and mild panic attacks F40.01 [facility] [address] [place] [address] Oct, Panic disorder with agoraphobia and mild panic attacks F40.01 [facility] [id number] [place] [address] Sep, Panic disorder with agoraphobia and mild panic attacks F40.01 [facility] [id number] [place] [address] Sep, Panic disorder F41.0 ; Agoraphobia F40.00 and Generalized anxiety disorder F41.1 [facility] [id number] [place] [address] Oct, Generalized anxiety disorder 300.02 [facility] [id number] [place] [address] Oct, Anxiety 300.00 [facility] [id number] [place] [address] Oct, Anxiety state, unspecified 300.00 and Medora II diagnosis deferred 799.9 [facility] [id number] [place] [address] Sep, [facility] [id number] [place] [phone] July, Dental examination V72.2 [facility] [id number] [place] [address] Jun, [facility] [id number] [place] [address] Jun, [facility] [id number] [place] [address] May, [facility] [id number] [place] [address] May, [facility] [id number] [place] [address] May, 2014 [facility] [place] [facility] [address] [id number] [place] [address] May, 2014 [facility] [place] [facility] [address] [id number] [place] [address] May, 2014 [facility] [place] [facility] [address] [id number] [place] [address] May, 2014 [facility] [place] [facility] [address] [id number] [place] [address] May, [facility] [place] [facility] [address] [id number] [place] [address] May, [facility] [place] [facility] [address] [id number] [place] [address] Apr, 2014 [facility] [place] [facility] [address] [id number] [place] [address] Apr, 2014 [facility] [place] [facility] [address] [facility] [id number] [place] [address] Apr, 2014 [facility] [place] [facility] [address] [id number] [place] [address] Apr, [facility] [place] [facility] [address] [facility] [id number] [place] [address] Jan, [facility] [place] [facility] [address] [facility] [id number] [place] [address] Jan, [facility] [place] [facility] [address] [id number] [place] [address] Aug, [facility] [place] [facility] [address] [id number] [place] [address] Aug, [facility] [place] [facility] [address] [facility] [id number] [place] [address] Aug, [facility] [place] [facility] [address] [facility] [id number] [place] [address] Aug, [facility] [id number] [place] [address] July, [facility] [address] [place] [address] Jun, [facility] [address] [place] [address] Jun, [facility] [address] [place] [address] Jun, [facility] [address] [place] [address] 28 May, 2012 [facility] [address] [place] [address] May, [facility] [address] [place] [address] May, [facility] [address] [place] [address] May, [facility] [address] [place] [address] 16 May, 2012 [facility] [address] [place] [address] 14 May, 2012 IMMUNIZATIONS No Known Immunizations [...]
--- OUTSIDE RECORDS SUMMARY | 2018-10-16 13:03 | XMS REPORT ---
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 Active 57491235 Problem Constipation, unspecified constipation type K59.00 Active 19927889 Problem Unspecified osteoporosis 733.00 Active 68016276 Problem Panic disorder with agoraphobia and mild panic attacks F40.01 Active 28616244 Problem Migraine without status migrainosus, not intractable, unspecified migraine type G43.909 Active 85631960 ALLERGIES No Information ENCOUNTERS Encounter Location Date Diagnosis [place] [id number] [place] [address] Aug, Panic disorder with agoraphobia and mild panic attacks F40.01 [place] [id number] [place] [address] Aug, [place] [id number] [place] [address] July, [place] [id number] [place] [address] July, Panic disorder with agoraphobia and mild panic attacks F40.01 [place] [id number] [place] [address] May, [place] [address] [address] May, 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 ; Panic disorder with agoraphobia and mild panic attacks F40.01 ; Lightheadedness R42 ; Constipation, unspecified constipation type K59.00 and Low vitamin D level R79.89 [facility] [id number] [place] [id number] Apr, Dental examination Z01.20 and Caries K02.9 [place] [id number] [place] [address] Mar, Panic disorder with agoraphobia and mild panic attacks F40.01 [place] [address] [address] Feb, [facility] [place] [address] [address] Feb, Exudative pharyngitis J02.9 [place] [address] [address] Feb, Panic disorder with agoraphobia and mild panic attacks F40.01 [facility] [place] [address] [address] Jan, Lower abdominal pain R10.30 [facility] [address] [address] Dec, Viral gastroenteritis A08.4 and Sore throat J02.9 [facility] [place] [address] [address] Nov, Ingrown toenail with infection L60.0 and Toe pain, left M79.675 [place] [id number] [place] [address] Oct, Panic disorder with agoraphobia and mild panic attacks F40.01 and 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 [place] [address] [address] Sep, Panic disorder with agoraphobia and mild panic attacks F40.01 and Drug side effects T88.7XXA [place] [address] [address] Sep, [facility] [address] [address] Aug, [facility] [id number] [place] [address] Aug, Panic disorder with agoraphobia and mild panic attacks F40.01 [facility] [id number] [place] [id number] Mar, Encounter for dental exam and cleaning w/o abnormal findings Z01.20 [facility] [id number] [place] [id number] Jan, Dental examination Z01.20 [facility] [id number] [place] [address] Dec, Right upper quadrant pain R10.11 and Colicky epigastric pain R10.13 [place] [id number] [place] [address] Jun, [facility] [id number] [place] [address] May, [facility] [id number] [place] [address] May, care, first in second trimester Z34.02 and 16 weeks gestation of Z3A.16 [place] [id number] [place] [address] 14 May, 2016 [facility] [id number] [place] [address] May, Panic disorder with agoraphobia and mild panic attacks F40.01 [facility] [id number] [place] [address] 23 Apr, 2016 care, first in first trimester Z34.01 and 12 weeks gestation of Z3A.12 [place] [id number] [place] [address] Apr, [facility] [address] [address] Apr, Panic disorder with agoraphobia and mild panic attacks F40.01 [facility] [address] [address] Apr, [facility] [id number] [place] [address] Mar, [facility] [id number] [place] [address] Mar, Normal , first Z34.00 ; 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 [address] [address] Mar, [facility] [id number] [place] [address] Feb, [facility] [id number] [place] [address] Feb, [facility] [id number] [place] [address] Feb, Encounter for test Z32.00 [facility] [id number] [place] [address] Feb, Panic disorder with agoraphobia and mild panic attacks F40.01 [facility] [address] [address] Feb, Panic disorder with agoraphobia and mild panic attacks F40.01 [facility] [id number] [place] [address] Feb, Panic disorder with agoraphobia and mild panic attacks F40.01 [facility] [id number] [place] [address] Jan, Panic disorder with agoraphobia and mild panic attacks F40.01 [place] [id number] [place] [address] Jan, Panic disorder with agoraphobia and mild panic attacks F40.01 [facility] [id number] [place] [address] Dec, Panic disorder with agoraphobia and mild panic attacks F40.01 [facility] [id number] [place] [address] Dec, Panic disorder with agoraphobia and mild panic attacks F40.01 [facility] [id number] [place] [address] 29 Nov, 2015 Bug bite, initial encounter W57.XXXA [facility] [id number] [place] [address] Nov, Panic disorder with agoraphobia and mild panic attacks F40.01 [facility] [id number] [place] [address] Nov, Panic disorder with agoraphobia and mild panic attacks F40.01 [place] [id number] [place] [address] 24 Oct, 2015 Panic disorder with agoraphobia and mild panic attacks F40.01 [facility] [id number] [place] [address] Oct, Panic disorder with agoraphobia and mild panic attacks F40.01 [facility] [id number] [place] [address] Oct, Panic disorder with agoraphobia and mild panic attacks F40.01 [facility] [id number] [place] [address] Sep, Panic disorder with agoraphobia and mild panic attacks F40.01 [facility] [id number] [place] [address] Sep, Panic disorder F41.0 ; Agoraphobia F40.00 and Generalized anxiety disorder F41.1 [facility] [id number] [place] [address] Oct, Generalized anxiety disorder 300.02 [facility] [id number] [place] [address] Oct, Anxiety 300.00 [facility] [id number] [place] [address] Oct, Anxiety state, unspecified 300.00 and Fisk II diagnosis deferred 799.9 [facility] [id number] [place] [address] Sep, [facility] [id number] [place] [id number] July, Dental examination V72.2 [facility] [id number] [place] [address] Jun, [facility] [id number] [place] [address] Jun, [facility] [id number] [place] [address] May, [facility] [id number] [place] [address] May, [facility] [id number] [place] [address] May, 2014 [facility] [place] [facility] [address] [id number] [place] [address] May, 2014 [facility] [place] [facility] [address] [id number] [place] [address] May, 2014 [facility] [place] [facility] [address] [id number] [place] [address] May, 2014 [facility] [place] [facility] [address] [id number] [place] [address] May, [facility] [place] [facility] [address] [id number] [place] [address] May, [facility] [place] [facility] [address] [id number] [place] [address] Apr, 2014 [facility] [place] [facility] [address] [id number] [place] [address] Apr, 2014 [facility] [place] [facility] [address] [facility] [id number] [place] [address] Apr, 2014 [facility] [place] [facility] [address] [id number] [place] [address] Apr, [facility] [place] [facility] [address] [facility] [id number] [place] [address] Jan, [facility] [place] [facility] [address] [facility] [id number] [place] [address] Jan, [facility] [place] [facility] [address] [id number] [place] [address] Aug, [facility] [place] [facility] [address] [id number] [place] [address] Aug, [facility] [place] [facility] [address] [facility] [id number] [place] [address] Aug, [facility] [place] [facility] [address] [facility] [id number] [place] [address] Aug, [facility] [id number] [address] July, [facility] [id number] [address] Jun, [facility] [id number], [place] [address] Jun, [facility] [id number], [place] [address] Jun, [facility] [id number] [address] 28 May, 2012 [facility] [address] [address] May, [facility] [id number] [address] May, [facility] [address] [address] May, [facility] [address] [address] 16 May, 2012 [facility] [id number] [address] 14 May, 2012 IMMUNIZATIONS No Known Immunizations [...]
--- OUTSIDE RECORDS SUMMARY | 2018-10-16 13:04 | XMS REPORT ---
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 Active 69607966 Problem Panic disorder with agoraphobia and mild panic attacks F40.01 Active 92791630 Problem Unspecified osteoporosis 733.00 Active 94105420 ALLERGIES No Information ENCOUNTERS Encounter Location Date Diagnosis [facility] [id number] [place] [address] Mar, [facility] [id number] [place] [address] Feb, [facility] [id number] [place] [address] Feb, Exudative pharyngitis J02.9 [facility] [id number] [place] [address] Feb, Panic disorder with agoraphobia and mild panic attacks F40.01 [facility] [id number] [place] [address] Jan, Lower abdominal pain R10.30 [facility] [id number] [place] [address] Dec, Viral gastroenteritis A08.4 and Sore throat J02.9 [facility] [id number] [place] [address] Nov, Ingrown toenail with infection L60.0 and Toe pain, left M79.675 [facility] [id number] [place] [address] Oct, Panic disorder with agoraphobia and mild panic attacks F40.01 and 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 [facility] [id number] [place] [address] Sep, Panic disorder with agoraphobia and mild panic attacks F40.01 and Drug side effects T88.7XXA [facility] [id number] [place] [address] Sep, [facility] [id number] [place] [address] Aug, [place] [id number] [place] [address] Aug, Panic disorder with agoraphobia and mild panic attacks F40.01 [facility] [address] [place] [id number] Mar, Encounter for dental exam and cleaning w/o abnormal findings Z01.20 [facility] [id number] [place] [address] [id number] Jan, Dental examination Z01.20 [facility] [id number] [place] [address] Dec, Right upper quadrant pain R10.11 and Colicky epigastric pain R10.13 [facility] [address], [place] [address] Jun, [facility] [id number] [place] [address] May, [facility] [id number] [place] [address] May, care, first in second trimester Z34.02 and 16 weeks gestation of Z3A.16 [place] [address], [place] [address] May, [facility] [id number] [place] [address] May, Panic disorder with agoraphobia and mild panic attacks F40.01 [place] [address] [place] [address] 23 Apr, 2016 care, first in first trimester Z34.01 and 12 weeks gestation of Z3A.12 [place] [facility] [id number] [place] [address] 17 Apr, 2016 [place] [id number] [place] [address] 14 Apr, 2016 Panic disorder with agoraphobia and mild panic attacks F40.01 [place] [id number] [place] [address] 09 Apr, 2016 [facility] [id number] [place] [address] Mar, [place] [id number] [place] [address] Mar, Normal , first Z34.00 ; 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 ; Nausea and vomiting during O21.9 ; Migraine without status migrainosus, not intractable, unspecified migraine type G43.909 and 8 weeks gestation of Z3A.08 [place] [address], [place] [address] Mar, [place] [address], [place] [address] Mar, [place] [id number] [place] [address] Mar, Panic disorder with agoraphobia and mild panic attacks F40.01 [facility] [address], [place] [address] Mar, [facility] [address] [place] [address] Feb, [facility] [id number] [place] [address] Feb, [facility] [id number] [place] [address] Feb, Encounter for test Z32.00 [facility] [id number] [place] [address] Feb, Panic disorder with agoraphobia and mild panic attacks F40.01 [place] [id number] [place] [address] Feb, Panic disorder with agoraphobia and mild panic attacks F40.01 [facility] [id number] [place] [address] Feb, Panic disorder with agoraphobia and mild panic attacks F40.01 [facility] [id number] [place] [address] Jan, Panic disorder with agoraphobia and mild panic attacks F40.01 [facility] [id number] [place] [address] Jan, Panic disorder with agoraphobia and mild panic attacks F40.01 [facility] [id number] [place] [address] Dec, Panic disorder with agoraphobia and mild panic attacks F40.01 [facility] [id number] [place] [address] Dec, Panic disorder with agoraphobia and mild panic attacks F40.01 [facility] [id number] [place] [address] Nov, Bug bite, initial encounter W57.XXXA [facility] [id number] [place] [address] Nov, Panic disorder with agoraphobia and mild panic attacks F40.01 [facility] [id number] [place] [address] Nov, Panic disorder with agoraphobia and mild panic attacks F40.01 [facility] [id number] [place] [address] Oct, Panic disorder with agoraphobia and mild panic attacks F40.01 [facility] [id number] [place] [address] Oct, Panic disorder with agoraphobia and mild panic attacks F40.01 [facility] [id number] [place] [address] Oct, Panic disorder with agoraphobia and mild panic attacks F40.01 [facility] [id number] [place] [address] Sep, Panic disorder with agoraphobia and mild panic attacks F40.01 [facility] [id number] [place] [address] Sep, Panic disorder F41.0 ; Agoraphobia F40.00 and Generalized anxiety disorder F41.1 [facility] [id number] [place] [address] Oct, Generalized anxiety disorder 300.02 [facility] [id number] [place] [address] Oct, Anxiety 300.00 [facility] [id number] [place] [address] Oct, Anxiety state, unspecified 300.00 and [place] II diagnosis deferred 799.9 [facility] [id number] [place] [address] Sep, [facility] [id number] [place] [address] [id number] July, Dental examination V72.2 [facility] [place] [facility] [address] [id number] [address] Jun, [facility] [place] [facility] [address] [id number] [place] [address] Jun, [facility] [place] [facility] [address] [id number] [place] [address] May, [facility] [place] [facility] [address] [id number] [place] [address] May, [facility] [place] [facility] [address] [id number] [place] [address] May, [facility] [place] [facility] [address] [id number] [place] [address] May, [facility] [place] [facility] [address] [id number] [place] [address] May, [facility] [place] [facility] [address] [id number], [place] [address] May, [facility] [place] [facility] [address] [id number] [place] [address] May, [facility] [place] [facility] [address] [id number] [place] [address] May, [facility] [place] [facility] [address] [id number], [place] [address] Apr, [facility] [place] [facility] [address] [id number], [place] [address] Apr, [facility] [place] [facility] [address] [id number] [place] [address] Apr, [facility] [place] [facility] [address] [id number], [place] [address] Apr, [facility] [place] [facility] [address] [id number], [place] [address] Jan, [facility] [place] [facility] [address], [place] [address] Jan, [facility] [address] [facility] [place] [id number], [place] [address] Aug, [facility] [address], [place] [address] Aug, [facility] [address], [place] [address] Aug, [facility] [address] [facility] [place] [id number], [place] [address] Aug, [facility] [address], [place] [address] July, [facility] [address], [place] [address] Jun, [facility] [address], [place] [address] Jun, [facility] [address], [place] [address] Jun, [facility] [address], [place] [address] May, [facility] [address], [place] [address] May, [facility] [address], [place] [address] 26 May, 2012 [facility] [id number], [place] [address] 19 May, 2012 [facility] [address], [place] [address] 16 May, 2012 [facility] [address] [id number], [place] [address] 14 May, 2012 IMMUNIZATIONS No Known Immunizations SOCIAL HISTORY Never Assessed REASON FOR VISIT Requests return call PLAN OF CARE VITAL SIGNS MEDICATIONS Unknown [...]
--- OUTSIDE RECORDS SUMMARY | 2018-10-16 13:04 | XMS REPORT ---
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 51669909 Problem Migraine without status migrainosus, not intractable, unspecified migraine type G43.909 Active 14306803 Problem Unspecified osteoporosis 733.00 Active 43155897 Problem Panic disorder with agoraphobia and mild panic attacks F40.01 Active 94805845 ALLERGIES No Information ENCOUNTERS Encounter Location Date Diagnosis [facility] [address] [id number] May, [facility] [address] [id number] May, [facility] [id number] [place] [address] May, [facility] [address] [id number] Apr, Dental examination Z01.20 and Caries K02.9 [facility] [id number] [place] [address] Mar, Panic disorder with agoraphobia and mild panic attacks F40.01 [facility] [id number] [place] [address] Feb, [facility] [id number] [place] [address] Feb, Exudative pharyngitis J02.9 [facility] [id number] [place] [address] Feb, Panic disorder with agoraphobia and mild panic attacks F40.01 [facility] [id number] [place] [address] Jan, Lower abdominal pain R10.30 [facility] [address] [address] Dec, Viral gastroenteritis A08.4 and Sore throat J02.9 [facility] [address] [address] Nov, Ingrown toenail with infection L60.0 and Toe pain, left M79.675 [facility] [address] [address] Oct, Panic disorder with agoraphobia and mild panic attacks F40.01 and 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 [place] [address] [address] Sep, Panic disorder with agoraphobia and mild panic attacks F40.01 and Drug side effects T88.7XXA [facility] [address] [address] Sep, [place] [address] [address] Aug, [place] [id number] [place] [address] Aug, Panic disorder with agoraphobia and mild panic attacks F40.01 [facility] [address] [id number] Mar, Encounter for dental exam and cleaning w/o abnormal findings Z01.20 [facility] [address] [id number] Jan, Dental examination Z01.20 [place] [id number] [place] [address] 06 Dec, 2016 Right upper quadrant pain R10.11 and Colicky epigastric pain R10.13 [place] [address], [place] [address] 05 Jun, 2016 [facility] [address], [place] [address] May, [facility] [address], [place] [address] May, care, first in second trimester Z34.02 and 16 weeks gestation of Z3A.16 [place] [address], [place] [address] 14 May, 2016 [place] [address] [place] [address] May, Panic disorder with agoraphobia and mild panic attacks F40.01 [place] [address], [place] [address] 23 Apr, 2016 care, first in first trimester Z34.01 and 12 weeks gestation of Z3A.12 [place] [address], [place] [address] 17 Apr, 2016 [place] [address], [place] [address] 14 Apr, 2016 Panic disorder with agoraphobia and mild panic attacks F40.01 [place] [address], [place] [address] 09 Apr, 2016 [place] [address], [place] [address] Mar, [place] [address], [place] [address] Mar, Normal , first Z34.00 ; 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 ; Nausea and vomiting during O21.9 ; Migraine without status migrainosus, not intractable, unspecified migraine type G43.909 and 8 weeks gestation of Z3A.08 [place] [address], [place] [address] Mar, [facility] [address], [place] [address] Mar, [facility] [address] [place] [address] Mar, Panic disorder with agoraphobia and mild panic attacks F40.01 [facility] [address] [place] [address] Mar, [facility] [address] [place] [address] Feb, [facility] [id number] [place] [address] Feb, [facility] [id number] [place] [address] Feb, Encounter for test Z32.00 [facility] [id number] [place] [address] Feb, Panic disorder with agoraphobia and mild panic attacks F40.01 [facility] [id number] [place] [address] Feb, Panic disorder with agoraphobia and mild panic attacks F40.01 [facility] [address] [place] [address] Feb, Panic disorder with agoraphobia and mild panic attacks F40.01 [facility] [address], [place] [address] Jan, Panic disorder with agoraphobia and mild panic attacks F40.01 [facility] [address], [place] [address] Jan, Panic disorder with agoraphobia and mild panic attacks F40.01 [facility] [address], [place] [address] Dec, Panic disorder with agoraphobia and mild panic attacks F40.01 [facility] [address], [place] [address] Dec, Panic disorder with agoraphobia and mild panic attacks F40.01 [facility] [address], [place] [address] 29 Nov, 2015 Bug bite, initial encounter W57.XXXA [facility] [address] [address] Nov, Panic disorder with agoraphobia and mild panic attacks F40.01 [facility] [id number] [place] [address] Nov, Panic disorder with agoraphobia and mild panic attacks F40.01 [facility] [id number] [place] [address] Oct, Panic disorder with agoraphobia and mild panic attacks F40.01 [facility] [id number] [place] [address] Oct, Panic disorder with agoraphobia and mild panic attacks F40.01 [place] [id number] [place] [address] Oct, Panic disorder with agoraphobia and mild panic attacks F40.01 [facility] [id number] [place] [address] Sep, Panic disorder with agoraphobia and mild panic attacks F40.01 [facility] [id number] [place] [address] Sep, Panic disorder F41.0 ; Agoraphobia F40.00 and Generalized anxiety disorder F41.1 [place] [id number] [place] [address] 18 Oct, 2014 Generalized anxiety disorder 300.02 [facility] [id number] [place] [address] Oct, Anxiety 300.00 [facility] [address], [place] [address] Oct, Anxiety state, unspecified 300.00 and [place] II diagnosis deferred 799.9 [facility] [address], [place] [address] Sep, [facility] [id number] [place] [id number] July, Dental examination V72.2 [facility] [address], [place] [address] Jun, [facility] [id number] [place] [address] Jun, [facility] [id number] [place] [address] May, [facility] [id number] [place] [address] May, [facility] [address], [place] [address] May, [facility] [address], [place] [address] May, [facility] [address], [place] [address] May, [facility] [address], [place] [address] May, [facility] [address], [place] [address] May, [facility] [address], [place] [address] May, [facility] [id number], [place] [address] Apr, [facility] [id number] [place] [address] Apr, [facility] [address] [id number] [place] [address] Apr, [facility] [place] [facility] [address] [id number] [place] [address] Apr, [facility] [address] [id number] [place] [address] Jan, [facility] [place] [facility] [address] [id number] [place] [address] Jan, [facility] [place] [facility] [address] [id number] [place] [address] Aug, [facility] [place] [facility] [address] [id number] [place] [address] Aug, [facility] [address] [id number] [place] [address] Aug, [facility] [place] [facility] [address] [id number] [place] [address] Aug, [facility] [place] [facility] [address] [id number] [place] [address] July, [facility] [address] [id number] [place] [address] Jun, [facility] [place] [facility] [address] [id number] [place] [address] Jun, [facility] [place] [facility] [address] [id number] [place] [address] Jun, [facility] [place] [facility] [address] [id number] [place] [address] May, [facility] [place] [facility] [address] [id number] [place] [address] May, [facility] [place] [facility] [address] [id number] [place] [address] May, [facility] [address] [facility] [id number] [place] [address] 19 May, 2012 [facility] [address] [facility] [place] [id number] [address] 16 May, 2012 [facility] [address] [facility] [place] [id number] [address] 14 May, 2012 IMMUNIZATIONS No Known Immunizations SOCIAL HISTORY Never Assessed REASON FOR VISIT EMR-[facility] PLAN OF CARE VITAL SIGNS MEDICATIONS Unknown [...]
--- OUTSIDE RECORDS SUMMARY | 2018-10-16 13:04 | XMS REPORT ---
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 55823770 Problem Panic disorder with agoraphobia and mild panic attacks F40.01 Active 66502120 Problem Unspecified osteoporosis 733.00 Active 40304802 ALLERGIES Substance Reaction Event Type Date Status Penicillin V Potassium Unknown Drug Allergy Jan, Active Boniva Unknown Drug Allergy Jan, Active ENCOUNTERS Encounter Location Date Diagnosis [facility] [id number] [place] [id number] Jan, Lower abdominal pain R10.30 [facility] [id number] [place] [id number] Dec, Viral gastroenteritis A08.4 and Sore throat J02.9 [facility] [id number] [place] [id number] Nov, Ingrown toenail with infection L60.0 and Toe pain, left M79.675 [facility] [id number] [place] [address] Oct, Panic disorder with agoraphobia and mild panic attacks F40.01 and 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 [facility] [id number] [place] [address] Sep, Panic disorder with agoraphobia and mild panic attacks F40.01 and Drug side effects T88.7XXA [facility] [address] [address] Sep, [facility] [id number] [place] [phone] Aug, [facility] [id number] [place] [address] Aug, Panic disorder with agoraphobia and mild panic attacks F40.01 [facility] [id number] [place] [id number] Mar, Encounter for dental exam and cleaning w/o abnormal findings Z01.20 [facility] [id number] [place] [id number] Jan, Dental examination Z01.20 [facility] [id number] [place] [phone] Dec, Right upper quadrant pain R10.11 and Colicky epigastric pain R10.13 [facility] [address] [address] Jun, [facility] [id number] [place] [address] May, [facility] [id number] [place] [address] May, care, first in second trimester Z34.02 and 16 weeks gestation of Z3A.16 [facility] [address] [address] 14 May, 2016 [facility] [address] [place] [address] May, Panic disorder with agoraphobia and mild panic attacks F40.01 [facility] [address] [address] Apr, care, first in first trimester Z34.01 and 12 weeks gestation of Z3A.12 [facility] [address] [place] [address] 17 Apr, 2016 [facility] [id number] [place] [address] 14 Apr, 2016 Panic disorder with agoraphobia and mild panic attacks F40.01 [facility] [id number] [place] [phone] 09 Apr, 2016 [facility] [id number] [place] [address] Mar, [facility] [id number] [place] [address] Mar, Normal , first Z34.00 ; 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 ; Nausea and vomiting during O21.9 ; Migraine without status migrainosus, not intractable, unspecified migraine type G43.909 and 8 weeks gestation of Z3A.08 [facility] [id number] [place] [address] Mar, [facility] [id number] [place] [address] Mar, [facility] [id number] [place] [address] Mar, Panic disorder with agoraphobia and mild panic attacks F40.01 [facility] [id number] [place] [address] Mar, [facility] [address] [place] [address] Feb, [facility] [id number] [place] [address] Feb, [facility] [id number] [place] [address] Feb, Encounter for test Z32.00 [facility] [id number] [place] [address] Feb, Panic disorder with agoraphobia and mild panic attacks F40.01 [facility] [address] [place] [address] Feb, Panic disorder with agoraphobia and mild panic attacks F40.01 [facility] [id number] [place] [phone] Feb, Panic disorder with agoraphobia and mild panic attacks F40.01 [facility] [id number] [place] [address] Jan, Panic disorder with agoraphobia and mild panic attacks F40.01 [facility] [id number] [place] [address] Jan, Panic disorder with agoraphobia and mild panic attacks F40.01 [facility] [id number] [place] [address] Dec, Panic disorder with agoraphobia and mild panic attacks F40.01 [facility] [id number] [place] [address] Dec, Panic disorder with agoraphobia and mild panic attacks F40.01 [facility] [address] [place] [address] Nov, Bug bite, initial encounter W57.XXXA [facility] [id number] [place] [address] Nov, Panic disorder with agoraphobia and mild panic attacks F40.01 [facility] [id number] [place] [address] Nov, Panic disorder with agoraphobia and mild panic attacks F40.01 [facility] [address] [place] [address] Oct, Panic disorder with agoraphobia and mild panic attacks F40.01 [facility] [id number] [place] [phone] Oct, Panic disorder with agoraphobia and mild panic attacks F40.01 [facility] [id number] [place] [address] Oct, Panic disorder with agoraphobia and mild panic attacks F40.01 [facility] [id number] [place] [address] Sep, Panic disorder with agoraphobia and mild panic attacks F40.01 [facility] [id number] [place] [address] Sep, Panic disorder F41.0 ; Agoraphobia F40.00 and Generalized anxiety disorder F41.1 [facility] [id number] [place] [address] Oct, Generalized anxiety disorder 300.02 [facility] [id number] [place] [address] Oct, Anxiety 300.00 [facility] [id number] [place] [address] Oct, Anxiety state, unspecified 300.00 and Mulga II diagnosis deferred 799.9 [facility] [id number] [place] [address] Sep, [facility] [id number] [place] [id number] July, Dental examination V72.2 [facility] [id number] [place] [address] Jun, [facility] [id number] [place] [address] Jun, [facility] [id number] [place] [address] May, [facility] [id number] [place] [address] May, [facility] [place] [facility] [address] [id number] [place] [address] May, [facility] [place] [facility] [address] [id number] [place] [address] May, [facility] [place] [facility] [address] [id number] [place] [address] May, [facility] [place] [facility] [address] [id number] [place] [address] May, [facility] [place] [facility] [address] [id number] [place] [address] May, [facility] [place] [facility] [address] [id number] [place] [address] May, [facility] [place] [facility] [address] [id number] [place] [address] Apr, [facility] [place] [facility] [address] [id number] [place] [address] Apr, [facility] [place] [facility] [address] [id number] [place] [address] Apr, [facility] [place] [facility] [address] [id number] [place] [address] Apr, [facility] [place] [facility] [address] [id number] [place] [address] Jan, [facility] [place] [facility] [address] [id number] [place] [address] Jan, [facility] [place] [facility] [address] [id number] [place] [address] Aug, [facility] [place] [facility] [address] [id number] [place] [address] Aug, [facility] [place] [facility] [address] [id number] [place] [address] Aug, [facility] [place] [facility] [id number] [address] Aug, [facility] [address] [address] July, [facility] [address] [address] Jun, [facility] [address] [address] Jun, [facility] [address] [address] Jun, [facility] [address] [place] [address] May, [facility] [address] [address] May, [facility] [address] [place] [address] May, [facility] [address] [address] May, [facility] [address] [address] 16 May, 2012 [facility] [id number] [address] 14 May, 2012 IMMUNIZATIONS No Known Immunizations SOCIAL HISTORY Never Assessed REASON FOR VISIT UTI-Pt complaining of dull achy abdominal pain x 2 weeks that is worse when blad vivian is full. Pt. is also having a little bit of back pain.--SHAAN Del Angel PLAN OF CARE Activity Details Follow Up prn Reason: Pending Test CULTURE, URINE VITAL SIGNS Height 65 in 2018-01-11 Weight 132.4 lbs 2018-01-11 Temperature 98.2 degrees Fahrenheit 2018-01-11 Heart Rate 64 bpm 2018-01-11 Respiratory Rate 18 2018-01-11 BMI 22.03 kg/m2 2018-01-11 Blood pressure systolic 110 mmHg 2018-01-11 Blood pressure diastolic 74 mmHg 2018-01-11 MEDICATIONS Medication Instructions Dosage Frequency Start Date End Date Duration Status Zofran ODT 4 MG Orally Every 8 hours PRN 1 tablet on the tongue and allow to dissolve Dec, 5 days Active tylenol 1 tab Active Paroxetine HCl 40 mg Orally Once a day 1 tablet in the morning 24h Oct, 30 day(s) Active Ibuprofen 800 MG Orally Three times a day as needed 1 tablet with food or milk as needed Nov, Active RESULTS Name Result Date Reference Range UA LONG DIP (IN HOUSE) 2018-01-11 Lot # [id number] Exp date 07/2018 Clarity clear Color yellow Odor no GLU Negative TOMASZ Negative KET Negative SG 1.015 BLO Negative pH 7.0 Protein Negative URO 0.2 NIT Negative CHEN 1+ Lot # [id number] Exp date 02/2018 PROCEDURES Procedure Date Ordered Result Body [facility] Jan 11, 2018 URINALYSIS, AUTO, W/O SCOPE Jan 11, 2018 INSTRUCTIONS MEDICATIONS ADMINISTERED No Known Medications MEDICAL [...]
--- OUTSIDE RECORDS SUMMARY | 2018-10-16 13:04 | XMS REPORT ---
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 93925946 Problem Constipation, unspecified constipation type K59.00 Active 69645242 Problem Unspecified osteoporosis 733.00 Active 87691041 Problem Panic disorder with agoraphobia and mild panic attacks F40.01 Active 31182466 Problem Migraine without status migrainosus, not intractable, unspecified migraine type G43.909 Active 33769869 ALLERGIES No Information ENCOUNTERS Encounter Location Date Diagnosis [place] [place] [id number] [place] [address] May, [facility] [id number] [place] [address] May, 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 ; Panic disorder with agoraphobia and mild panic attacks F40.01 ; Lightheadedness R42 ; Constipation, unspecified constipation type K59.00 and Low vitamin D level R79.89 [facility] [address] [id number] Apr, Dental examination Z01.20 and Caries K02.9 [facility] [id number] [place] [address] Mar, Panic disorder with agoraphobia and mild panic attacks F40.01 [facility] [id number] [place] [address] Feb, [facility] [id number] [place] [address] Feb, Exudative pharyngitis J02.9 [facility] [id number] [place] [address] Feb, Panic disorder with agoraphobia and mild panic attacks F40.01 [facility] [address] [address] Jan, Lower abdominal pain R10.30 [facility] [place] [address] [address] Dec, Viral gastroenteritis A08.4 and Sore throat J02.9 [facility] [place] [address] [address] Nov, Ingrown toenail with infection L60.0 and Toe pain, left M79.675 [place] [place] [id number] [place] [address] Oct, Panic disorder with agoraphobia and mild panic attacks F40.01 and 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 [place] [address] [address] Sep, Panic disorder with agoraphobia and mild panic attacks F40.01 and Drug side effects T88.7XXA [place] [id number] [place] [address] Sep, [place] [id number] [place] [address] Aug, [facility] [id number] [place] [address] Aug, Panic disorder with agoraphobia and mild panic attacks F40.01 [facility] [id number] [place] [id number] Mar, Encounter for dental exam and cleaning w/o abnormal findings Z01.20 [facility] [id number] [place] [id number] Jan, Dental examination Z01.20 [place] [address] [address] Dec, Right upper quadrant pain R10.11 and Colicky epigastric pain R10.13 [place] [id number] [place] [address] Jun, [facility] [id number] [place] [address] May, [facility] [id number] [place] [address] May, care, first in second trimester Z34.02 and 16 weeks gestation of Z3A.16 [facility] [id number] [place] [address] 14 May, 2016 [place] [place] [id number] [place] [address] May, Panic disorder with agoraphobia and mild panic attacks F40.01 [place] [id number] [place] [address] Apr, care, first in first trimester Z34.01 and 12 weeks gestation of Z3A.12 [place] [address] [place] [address] 17 Apr, 2016 [place] [place] [id number] [place] [address] Apr, Panic disorder with agoraphobia and mild panic attacks F40.01 [place] [place] [address], [place] [address] Apr, [place] [place] [id number] [place] [address] Mar, [facility] [place] [id number] [place] [address] Mar, Normal , first Z34.00 ; 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 ; Nausea and vomiting during O21.9 ; Migraine without status migrainosus, not intractable, unspecified migraine type G43.909 and 8 weeks gestation of Z3A.08 [facility] [id number] [place] [address] Mar, [facility] [id number] [place] [address] Mar, [facility] [id number] [place] [address] Mar, Panic disorder with agoraphobia and mild panic attacks F40.01 [facility] [id number] [place] [address] Mar, [facility] [id number] [place] [address] Feb, [facility] [id number] [place] [address] Feb, [facility] [id number] [place] [address] Feb, Encounter for test Z32.00 [facility] [id number] [place] [address] Feb, Panic disorder with agoraphobia and mild panic attacks F40.01 [facility] [id number] [place] [address] Feb, Panic disorder with agoraphobia and mild panic attacks F40.01 [facility] [id number] [place] [address] Feb, Panic disorder with agoraphobia and mild panic attacks F40.01 [facility] [id number] [place] [address] Jan, Panic disorder with agoraphobia and mild panic attacks F40.01 [facility] [id number] [place] [address] Jan, Panic disorder with agoraphobia and mild panic attacks F40.01 [facility] [address], [place] [address] Dec, Panic disorder with agoraphobia and mild panic attacks F40.01 [facility] [id number] [place] [address] Dec, Panic disorder with agoraphobia and mild panic attacks F40.01 [facility] [id number] [place] [address] Nov, Bug bite, initial encounter W57.XXXA [facility] [id number] [place] [address] Nov, Panic disorder with agoraphobia and mild panic attacks F40.01 [place] [id number] [place] [address] Nov, Panic disorder with agoraphobia and mild panic attacks F40.01 [place] [id number] [place] [address] Oct, Panic disorder with agoraphobia and mild panic attacks F40.01 [place] [place] [id number] [place] [address] Oct, Panic disorder with agoraphobia and mild panic attacks F40.01 [place] [place] [id number] [place] [address] Oct, Panic disorder with agoraphobia and mild panic attacks F40.01 [facility] [id number] [place] [address] Sep, Panic disorder with agoraphobia and mild panic attacks F40.01 [place] [place] [id number] [place] [address] Sep, Panic disorder F41.0 ; Agoraphobia F40.00 and Generalized anxiety disorder F41.1 [place] [place] [id number] [place] [address] Oct, Generalized anxiety disorder 300.02 [facility] [address], [place] [address] Oct, Anxiety 300.00 [facility] [id number] [place] [address] Oct, Anxiety state, unspecified 300.00 and Macon II diagnosis deferred 799.9 [facility] [id number] [place] [address] Sep, [facility] [address] [id number] July, Dental examination V72.2 [facility] [id number] [place] [address] Jun, [facility] [id number] [place] [address] Jun, [facility] [id number] [place] [address] May, [facility] [id number] [place] [address] May, [facility] [id number] [place] [address] May, [facility] [address], [place] [address] May, [facility] [address], [place] [address] May, [facility] [address], [place] [address] May, [facility] [id number] [place] [address] May, [facility] [address], [place] [address] May, [facility] [id number] [place] [address] Apr, [facility] [address] [id number] [place] [address] Apr, 2014 [facility] [place] [facility] [address] [id number] [place] [address] Apr, 2014 [facility] [address] [id number] [place] [address] Apr, [facility] [place] [facility] [address] [id number] [place] [address] Jan, [facility] [address] [id number] [place] [address] Jan, [facility] [address] [id number] [place] [address] Aug, [facility] [place] [facility] [address] [id number] [place] [address] Aug, [facility] [address] [id number] [place] [address] Aug, [facility] [place] [facility] [address] [id number] [place] [address] Aug, [facility] [address] [id number] [place] [address] July, [facility] [place] [facility] [address] [id number] [place] [address] Jun, [facility] [place] [facility] [address] [id number] [place] [address] Jun, [facility] [place] [facility] [address] [id number] [place] [address] Jun, [facility] [place] [facility] [address] [id number] [place] [address] May, [facility] [place] [facility] [address] [id number] [place] [address] May, [facility] [address] [facility] [id number] [address] May, [facility] [id number], [place] [address] May, [facility] [address] [facility] [id number] [address] 16 May, 2012 [facility] [id number], [place] [address] 14 May, 2012 IMMUNIZATIONS No Known Immunizations SOCIAL HISTORY Never Assessed [place]AS[place] FOR VISIT [place] [place] VITAL SIGNS MEDICATIONS Unknown [...]
--- OUTSIDE RECORDS SUMMARY | 2018-10-16 13:05 | XMS REPORT ---
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 54591621 Problem Panic disorder with agoraphobia and mild panic attacks F40.01 Active 62667668 Problem Unspecified osteoporosis 733.00 Active 11868179 ALLERGIES Substance Reaction Event Type Date Status Penicillin V Potassium Unknown Drug Allergy Nov, Active Boniva Unknown Drug Allergy Nov, Active ENCOUNTERS Encounter Location Date Diagnosis [facility] [id number] [place] [phone] Nov, Ingrown toenail with infection L60.0 and Toe pain, left M79.675 [facility] [id number] [place] [address] Oct, Panic disorder with agoraphobia and mild panic attacks F40.01 and 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 [facility] [id number] [place] [id number] Sep, Panic disorder with agoraphobia and mild panic attacks F40.01 and Drug side effects T88.7XXA [facility] [id number] [place] [address] Sep, [facility] [id number] [place] [phone] Aug, [facility] [id number] [place] [phone] Aug, Panic disorder with agoraphobia and mild panic attacks F40.01 [facility] [id number] [id number] Mar, Encounter for dental exam and cleaning w/o abnormal findings Z01.20 [facility] [id number] [id number] Jan, Dental examination Z01.20 [facility] [id number] [place] [address] Dec, Right upper quadrant pain R10.11 and Colicky epigastric pain R10.13 [facility] [id number] [place] [address] Jun, [facility] [id number] [place] [phone] May, [facility] [id number] [place] [address] May, care, first in second trimester Z34.02 and 16 weeks gestation of Z3A.16 [facility] [id number] [place] [address] 14 May, 2016 [facility] [id number] [place] [address] May, Panic disorder with agoraphobia and mild panic attacks F40.01 [facility] [id number] [place] [address] 23 Apr, 2016 care, first in first trimester Z34.01 and 12 weeks gestation of Z3A.12 [facility] [id number] [place] [address] 17 Apr, 2016 [facility] [id number] [place] [address] 14 Apr, 2016 Panic disorder with agoraphobia and mild panic attacks F40.01 [facility] [id number] [place] [address] Apr, [facility] [id number] [place] [phone] Mar, [facility] [id number] [place] [address] Mar, Normal , first Z34.00 ; 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 ; Nausea and vomiting during O21.9 ; Migraine without status migrainosus, not intractable, unspecified migraine type G43.909 and 8 weeks gestation of Z3A.08 [facility] [id number] [place] [address] Mar, [facility] [id number] [place] [address] Mar, [facility] [id number] [place] [address] Mar, Panic disorder with agoraphobia and mild panic attacks F40.01 [facility] [id number] [place] [address] Mar, [facility] [id number] [place] [address] Feb, [facility] [id number] [place] [address] Feb, [facility] [id number] [place] [address] Feb, Encounter for test Z32.00 [facility] [id number] [place] [address] Feb, Panic disorder with agoraphobia and mild panic attacks F40.01 [facility] [id number] [place] [address] Feb, Panic disorder with agoraphobia and mild panic attacks F40.01 [facility] [id number] [address] Feb, Panic disorder with agoraphobia and mild panic attacks F40.01 [facility] [id number] [place] [address] Jan, Panic disorder with agoraphobia and mild panic attacks F40.01 [facility] [id number] [place] [address] Jan, Panic disorder with agoraphobia and mild panic attacks F40.01 [facility] [id number] [place] [address] Dec, Panic disorder with agoraphobia and mild panic attacks F40.01 [facility] [id number] [place] [address] Dec, Panic disorder with agoraphobia and mild panic attacks F40.01 [facility] [id number] [place] [address] Nov, Bug bite, initial encounter W57.XXXA [facility] [id number] [place] [address] Nov, Panic disorder with agoraphobia and mild panic attacks F40.01 [facility] [id number] [place] [address] Nov, Panic disorder with agoraphobia and mild panic attacks F40.01 [facility] [id number] [place] [address] Oct, Panic disorder with agoraphobia and mild panic attacks F40.01 [facility] [id number] [place] [address] Oct, Panic disorder with agoraphobia and mild panic attacks F40.01 [facility] [id number] [place] [address] Oct, Panic disorder with agoraphobia and mild panic attacks F40.01 [facility] [address] [address] Sep, Panic disorder with agoraphobia and mild panic attacks F40.01 [facility] [id number] [place] [address] Sep, Panic disorder F41.0 ; Agoraphobia F40.00 and Generalized anxiety disorder F41.1 [facility] [id number] [place] [address] Oct, Generalized anxiety disorder 300.02 [facility] [id number] [place] [address] Oct, Anxiety 300.00 [facility] [id number] [place] [address] Oct, Anxiety state, unspecified 300.00 and [place] II diagnosis deferred 799.9 [facility] [id number] [place] [address] Sep, [facility] [id number] [place] [id number] July, Dental examination V72.2 [facility] [id number] [place] [phone] Jun, [facility] [id number] [place] [id number] Jun, [facility] [id number] [place] [address] May, [facility] [id number] [place] [address] May, [facility] [id number] [place] [address] May, [facility] [id number] [place] [address] May, [facility] [address] [place] [address] May, [facility] [place] [facility] [address] [id number] [place] [address] May, [facility] [place] [facility] [address] [id number] [place] [address] May, [facility] [place] [facility] [address] [id number] [place] [address] May, [facility] [place] [facility] [address] [id number] [place] [address] Apr, 2014 [facility] [place] [facility] [address] [id number] [place] [address] Apr, 2014 [facility] [place] [facility] [address] [id number] [place] [address] Apr, 2014 [facility] [place] [facility] [address] [facility] [id number] [place] [address] Apr, [facility] [place] [facility] [address] [id number] [place] [address] Jan, [facility] [place] [facility] [address] [id number] [place] [address] Jan, [facility] [place] [facility] [address] [facility] [id number] [place] [address] Aug, [facility] [place] [facility] [address] [id number] [place] [address] Aug, [facility] [place] [facility] [address] [id number] [place] [address] Aug, [facility] [place] [facility] [address] [id number] [place] [address] Aug, [facility] [place] [facility] [address] [facility] [id number] [place] [address] July, [facility] [place] [facility] [address] [id number] [place] [address] Jun, [facility] [id number] [address] Jun, [facility] [address] [address] Jun, [facility] [address] [address] 28 May, 2012 [facility] [id number] [place] [phone] 27 May, 2012 [facility] [address] [address] May, [facility] [address] [address] 19 May, 2012 [facility] [address] [address] 16 May, 2012 [facility] [address] [address] 14 May, 2012 IMMUNIZATIONS No Known Immunizations SOCIAL HISTORY Never Assessed REASON FOR VISIT ingrown toenail on left great toe x 2 weeks. Tried to fix it herself and thinks she made it worse.--SHAAN Del Angel PLAN OF CARE Activity Details Follow Up prn Reason: VITAL SIGNS Height 65 in 2017-11-12 Weight 129.4 lbs 2017-11-12 Temperature 97.8 degrees Fahrenheit 2017-11-12 Heart Rate 60 bpm 2017-11-12 Respiratory Rate 18 2017-11-12 BMI 21.53 kg/m2 2017-11-12 Blood pressure systolic 126 mmHg 2017-11-12 Blood pressure diastolic 80 mmHg 2017-11-12 MEDICATIONS Medication Instructions Dosage Frequency Start Date End Date Duration Status Bactrim DS 800-160 MG Orally Twice a day 1 tablet 12h Nov, Nov, 10 day(s) Active Paroxetine HCl 40 mg Orally Once a day 1 tablet in the morning 24h Oct, 30 day(s) Active tylenol 1 tab Active Ibuprofen 800 MG Orally Three times a day as needed 1 tablet with food or milk as needed Nov, Active RESULTS No Results PROCEDURES No Known [...]
--- OUTSIDE RECORDS SUMMARY | 2018-10-16 13:05 | XMS REPORT ---
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 47623900 Problem Panic disorder with agoraphobia and mild panic attacks F40.01 Active 31993740 Problem Unspecified osteoporosis 733.00 Active 58725626 ALLERGIES Substance Reaction Event Type Date Status Penicillin V Potassium Unknown Drug Allergy Sep, Active Boniva Unknown Drug Allergy Sep, Active ENCOUNTERS Encounter Location Date Diagnosis [facility], [place] [id number] [place] [address] Oct, Panic disorder with agoraphobia and mild panic attacks F40.01 and 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 [facility], [place] [id number] [place] [address] Sep, Panic disorder with agoraphobia and mild panic attacks F40.01 and Drug side effects T88.7XXA [facility], [place] [id number] [place] [address] Sep, [facility], [place] [id number] [place] [address] Aug, [facility], [place] [id number] [place] [address] Aug, Panic disorder with agoraphobia and mild panic attacks F40.01 [facility] [address] [place] [id number] Mar, Encounter for dental exam and cleaning w/o abnormal findings Z01.20 [facility] [address] [id number] Jan, Dental examination Z01.20 [facility], [place] [address] [address] Dec, Right upper quadrant pain R10.11 and Colicky epigastric pain R10.13 [place] [id number] [place] [address] Jun, [facility], [place] [address] [place] [address] May, [place] [address] [place] [address] May, care, first in second trimester Z34.02 and 16 weeks gestation of Z3A.16 [place] [id number] [place] [address] May, [place] [id number] [place] [address] May, Panic disorder with agoraphobia and mild panic attacks F40.01 [address] [place] [address] 23 Apr, 2016 care, first in first trimester Z34.01 and 12 weeks gestation of Z3A.12 [place] [address] [place] [address] Apr, [place] [address] [place] [address] Apr, Panic disorder with agoraphobia and mild panic attacks F40.01 [place] [address] [address] 09 Apr, 2016 [place] [id number] [place] [address] Mar, [facility], [place] [address] [place] [address] Mar, Normal , first Z34.00 ; 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 ; Nausea and vomiting during O21.9 ; Migraine without status migrainosus, not intractable, unspecified migraine type G43.909 and 8 weeks gestation of Z3A.08 [facility], [place] [id number] [place] [address] Mar, [facility] [place] [id number] [place] [address] Mar, [place] [id number] [place] [address] Mar, Panic disorder with agoraphobia and mild panic attacks F40.01 [facility] [id number] [place] [address] Mar, [facility], [place] [id number] [place] [address] Feb, [facility], [place] [id number] [place] [address] Feb, [facility], [place] [id number] [place] [address] Feb, Encounter for test Z32.00 [facility], [place] [id number] [place] [address] Feb, Panic disorder with agoraphobia and mild panic attacks F40.01 [facility] [place] [id number] [place] [address] Feb, Panic disorder with agoraphobia and mild panic attacks F40.01 [facility] [place] [id number] [place] [address] Feb, Panic disorder with agoraphobia and mild panic attacks F40.01 [facility] [place] [id number] [place] [address] Jan, Panic disorder with agoraphobia and mild panic attacks F40.01 [facility] [place] [id number] [place] [address] Jan, Panic disorder with agoraphobia and mild panic attacks F40.01 [facility] [place] [id number] [place] [address] Dec, Panic disorder with agoraphobia and mild panic attacks F40.01 [facility] [place] [id number] [place] [address] Dec, Panic disorder with agoraphobia and mild panic attacks F40.01 [facility] [id number] [place] [address] Nov, Bug bite, initial encounter W57.XXXA [facility] [place] [id number] [place] [address] Nov, Panic disorder with agoraphobia and mild panic attacks F40.01 [facility] [place] [id number] [place] [address] Nov, Panic disorder with agoraphobia and mild panic attacks F40.01 [facility] [place] [address] [place] [address] Oct, Panic disorder with agoraphobia and mild panic attacks F40.01 [facility] [place] [id number] [place] [address] Oct, Panic disorder with agoraphobia and mild panic attacks F40.01 [facility] [place] [address] [place] [address] Oct, Panic disorder with agoraphobia and mild panic attacks F40.01 [facility] [place] [address] [place] [address] Sep, Panic disorder with agoraphobia and mild panic attacks F40.01 [facility] [place] [address], [place] [address] Sep, Panic disorder F41.0 ; Agoraphobia F40.00 and Generalized anxiety disorder F41.1 [facility], [place] [id number] [place] [address] Oct, Generalized anxiety disorder 300.02 [facility] [place] [id number] [place] [address] Oct, Anxiety 300.00 [facility] [place] [id number] [place] [address] Oct, Anxiety state, unspecified 300.00 and Minford II diagnosis deferred 799.9 [facility], [place] [id number] [place] [address] Sep, [facility] [id number] [place] [id number] July, Dental examination V72.2 [facility], [place] [id number] [place] [address] Jun, [facility], [place] [id number] [place] [address] Jun, [facility] [place] [id number] [place] [address] May, [facility] [place] [id number] [place] [address] May, [facility] [place] [id number] [place] [address] May, [facility] [place] [id number] [place] [address] May, [facility] [place] [id number] [place] [address] May, [facility] [place] [id number] [place] [address] May, [facility] [place] [facility] [address] [id number] [place] [address] May, [facility] [place] [facility] [address] [id number] [place] [address] May, [facility] [place] [facility] [address] [id number] [place] [address] Apr, [facility] [place] [facility] [address] [id number] [place] [address] Apr, [facility] [place] [facility] [address] [id number] [place] [address] Apr, [facility] [place] [facility] [address] [id number] [place] [address] Apr, [facility] [place] [facility] [address] [id number] [place] [address] Jan, [facility] [place] [facility] [address] [id number] [place] [address] Jan, [facility] [place] [facility] [address] [id number] [place] [address] Aug, [facility] [place] [facility] [address] [id number] [place] [address] Aug, [facility] [place] [facility] [address] [id number] [place] [address] Aug, [facility] [place] [facility] [address] [id number] [place] [address] Aug, [facility] [place] [facility] [address] [id number] [place] [address] July, [facility] [place] [facility] [address] [id number] [place] [address] Jun, [facility] [place] [facility] [address] [id number] [place] [address] Jun, [facility] [place] [facility] [address] [id number], [place] [address] Jun, [facility] [place] [address] [facility] [id number], [place] [address] 28 May, 2012 [facility] [place] [address] [facility] [id number], [place] [address] 27 May, 2012 [facility] [place] [address] [facility] [id number], [place] [address] 26 May, 2012 [facility] [place] [address] [facility] [id number], [place] [address] 19 May, 2012 [facility] [place] [address] [facility] [id number], [place] [address] 16 May, 2012 [facility] [place] [id number] [address] 14 May, 2012 IMMUNIZATIONS No Known Immunizations SOCIAL HISTORY Never Assessed REASON FOR VISIT Diarrhea, Stomach cramps since September 08. patient states that this has been happe shelia since she has began taking her whole dose of lexapro. when she only takes h oz of her dose, she does not have this problem.-awoods PLAN OF CARE Activity Details Follow Up 2 Months Reason:anxiety VITAL SIGNS Height 65 in 2017-09-14 Weight 128.3 lbs 2017-09-14 Temperature 98.3 degrees Fahrenheit 2017-09-14 Heart Rate 82 bpm 2017-09-14 Respiratory Rate 18 2017-09-14 BMI 21.35 kg/m2 2017-09-14 Blood pressure systolic 124 mmHg 2017-09-14 Blood pressure diastolic 72 mmHg 2017-09-14 MEDICATIONS Medication Instructions Dosage Frequency Start Date End Date Duration Status tylenol 1 tab Active Paroxetine HCl 20 mg Orally Once a day 1 tablet in the morning 24h Sep, 30 day(s) Active RESULTS No Results PROCEDURES No Known [...]
--- OUTSIDE RECORDS SUMMARY | 2018-10-16 13:05 | XMS REPORT ---
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 75635176 Problem Panic disorder with agoraphobia and mild panic attacks F40.01 Active 20635545 Problem Unspecified osteoporosis 733.00 Active 01373832 ALLERGIES Substance Reaction Event Type Date Status Penicillin V Potassium Unknown Drug Allergy Oct, Active Boniva Unknown Drug Allergy Oct, Active ENCOUNTERS Encounter Location Date Diagnosis [facility] [id number] [place] [address] Nov, Ingrown toenail with infection L60.0 and Toe pain, left M79.675 [facility] [id number] [place] [address] Oct, Panic disorder with agoraphobia and mild panic attacks F40.01 and 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 [facility] [address] [place] [address] Sep, Panic disorder with agoraphobia and mild panic attacks F40.01 and Drug side effects T88.7XXA [facility] [id number] [place] [address] Sep, [facility] [id number] [place] [address] Aug, [facility] [id number] [place] [address] Aug, Panic disorder with agoraphobia and mild panic attacks F40.01 [facility] [address] [id number] Mar, Encounter for dental exam and cleaning w/o abnormal findings Z01.20 [facility] [address] [id number] Jan, Dental examination Z01.20 [facility] [id number] [place] [address] Dec, Right upper quadrant pain R10.11 and Colicky epigastric pain R10.13 [place] [id number] [place] [address] Jun, [place] [id number] [place] [address] May, [place] [id number] [place] [address] May, care, first in second trimester Z34.02 and 16 weeks gestation of Z3A.16 [place] [id number] [place] [address] 14 May, 2016 [place] [id number] [place] [address] May, Panic disorder with agoraphobia and mild panic attacks F40.01 [place] [address] [place] [address] 23 Apr, 2016 care, first in first trimester Z34.01 and 12 weeks gestation of Z3A.12 [place] [id number] [place] [address] 17 Apr, 2016 [place] [address] [place] [address] 14 Apr, 2016 Panic disorder with agoraphobia and mild panic attacks F40.01 [place] [id number] [address] Apr, [facility] [id number] [place] [address] Mar, [facility] [id number] [place] [address] Mar, Normal , first Z34.00 ; 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 ; Nausea and vomiting during O21.9 ; Migraine without status migrainosus, not intractable, unspecified migraine type G43.909 and 8 weeks gestation of Z3A.08 [facility] [id number] [place] [address] Mar, [facility] [id number] [place] [address] Mar, [facility] [id number] [place] [address] Mar, Panic disorder with agoraphobia and mild panic attacks F40.01 [facility] [id number] [place] [address] Mar, [facility] [id number] [place] [address] Feb, [facility] [id number] [place] [address] Feb, [facility] [id number] [place] [address] Feb, Encounter for test Z32.00 [facility] [address] [place] [address] Feb, Panic disorder with agoraphobia and mild panic attacks F40.01 [facility] [address] [place] [address] Feb, Panic disorder with agoraphobia and mild panic attacks F40.01 [facility] [address] [address] [address] Feb, Panic disorder with agoraphobia and mild panic attacks F40.01 [facility] [id number] [place] [address] Jan, Panic disorder with agoraphobia and mild panic attacks F40.01 [facility] [id number] [place] [address] Jan, Panic disorder with agoraphobia and mild panic attacks F40.01 [facility] [id number] [place] [address] Dec, Panic disorder with agoraphobia and mild panic attacks F40.01 [place] [id number] [place] [address] Dec, Panic disorder with agoraphobia and mild panic attacks F40.01 [facility] [id number] [place] [address] Nov, Bug bite, initial encounter W57.XXXA [place] [id number] [place] [address] Nov, Panic disorder with agoraphobia and mild panic attacks F40.01 [place] [id number] [place] [address] Nov, Panic disorder with agoraphobia and mild panic attacks F40.01 [place] [address] [place] [address] Oct, Panic disorder with agoraphobia and mild panic attacks F40.01 [place] [id number] [place] [address] Oct, Panic disorder with agoraphobia and mild panic attacks F40.01 [facility] [id number] [place] [address] Oct, Panic disorder with agoraphobia and mild panic attacks F40.01 [facility] [address] [address] Sep, Panic disorder with agoraphobia and mild panic attacks F40.01 [facility] [id number] [place] [address] Sep, Panic disorder F41.0 ; Agoraphobia F40.00 and Generalized anxiety disorder F41.1 [facility] [id number] [place] [address] Oct, Generalized anxiety disorder 300.02 [facility] [id number] [place] [address] Oct, Anxiety 300.00 [facility] [id number] [place] [address] Oct, Anxiety state, unspecified 300.00 and [place] II diagnosis deferred 799.9 [facility] [id number] [place] [address] Sep, [facility] [id number] [place] [phone] July, Dental examination V72.2 [facility] [id number] [place] [address] Jun, [facility] [id number] [place] [address] Jun, [facility] [id number] [place] [address] May, [facility] [id number] [place] [address] May, [facility] [id number] [place] [address] May, [facility] [id number] [place] [address] May, [facility] [address] [place] [address] May, [facility] [place] [facility] [address] [id number] [place] [address] May, [facility] [place] [facility] [address] [id number] [place] [address] May, [facility] [place] [facility] [address] [id number] [place] [address] May, [facility] [place] [facility] [address] [id number] [place] [address] Apr, 2014 [facility] [place] [facility] [address] [id number] [place] [address] Apr, 2014 [facility] [place] [facility] [address] [id number] [place] [address] Apr, 2014 [facility] [place] [facility] [address] [id number] [place] [address] Apr, [facility] [place] [facility] [address] [id number] [place] [address] Jan, [facility] [place] [facility] [address] [id number] [place] [address] Jan, [facility] [place] [facility] [address] [facility] [id number] [place] [address] Aug, [facility] [place] [facility] [address] [id number] [place] [address] Aug, [facility] [place] [facility] [address] [id number] [place] [address] Aug, [facility] [place] [facility] [address] [id number] [place] [address] Aug, [facility] [place] [facility] [address] [id number] [place] [address] July, [facility] [place] [facility] [address] [id number] [place] [address] Jun, [facility] [id number] [address] 15 Jun, 2012 [facility] [address] [address] Jun, [facility] [address], [place] [address] 28 May, 2012 [facility] [address], [place] [address] 27 May, 2012 [facility] [address] [address] 26 May, 2012 [facility] [address], [place] [address] 19 May, 2012 [facility] [address], [place] [address] 16 May, 2012 [facility] [id number] [address] 14 May, 2012 IMMUNIZATIONS No Known Immunizations SOCIAL HISTORY Never Assessed REASON FOR VISIT Jguison. SHAAN Singer PLAN OF CARE Activity Details Follow Up 2 Months Reason: VITAL SIGNS Height 65 in 2017-10-29 Weight 132.0 lbs 2017-10-29 Temperature 98.3 degrees Fahrenheit 2017-10-29 Heart Rate 74 bpm 2017-10-29 Respiratory Rate 18 2017-10-29 BMI 21.96 kg/m2 2017-10-29 Blood pressure systolic 122 mmHg 2017-10-29 Blood pressure diastolic 70 mmHg 2017-10-29 MEDICATIONS Medication Instructions Dosage Frequency Start Date End Date Duration Status Paroxetine HCl 40 mg Orally Once a day 1 tablet in the morning 24h Oct, 30 day(s) Active tylenol 1 tab Active RESULTS Name Result Date Reference Range CBC 2017-10-29 WHITE BLOOD CELL COUNT 5.6 3.8-10.8 RED BLOOD CELL COUNT 4.69 3.80-5.10 HEMOGLOBIN 13.4 11.7-15.5 HEMATOCRIT 40.4 35.0-45.0 MCV 86.1 80.0-100.0 MCH 28.6 27.0-33.0 MCHC 33.2 32.0-36.0 RDW 12.5 11.0-15.0 PLATELET COUNT 204 140-400 MPV 12.0 7.5-12.5 ABSOLUTE NEUTROPHILS [phone] ABSOLUTE LYMPHOCYTES 2089 850-3900 ABSOLUTE MONOCYTES 437 200-950 ABSOLUTE EOSINOPHILS 90 15-500 ABSOLUTE BASOPHILS 50 0-200 NEUTROPHILS 52.4 LYMPHOCYTES 37.3 MONOCYTES 7.8 EOSINOPHILS 1.6 BASOPHILS 0.9 PROCEDURES Procedure Date Ordered Result Body Site LAB [facility] Oct 29, 2017 INSTRUCTIONS MEDICATIONS ADMINISTERED No Known Medications MEDICAL [...]
--- OUTSIDE RECORDS SUMMARY | 2018-10-16 13:05 | XMS REPORT ---
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 93855646 Problem Panic disorder with agoraphobia and mild panic attacks F40.01 Active 83074026 Problem Unspecified osteoporosis 733.00 Active 31936142 ALLERGIES Substance Reaction Event Type Date Status Penicillin V Potassium Unknown Drug Allergy Dec, Active Boniva Unknown Drug Allergy Dec, Active ENCOUNTERS Encounter Location Date Diagnosis [facility] IN [facility] [id number] [place] [address] Dec, Viral gastroenteritis A08.4 and Sore throat J02.9 [facility] [id number] [place] [address] Nov, Ingrown toenail with infection L60.0 and Toe pain, left M79.675 [place] [id number] [place] [address] Oct, Panic disorder with agoraphobia and mild panic attacks F40.01 and 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 [place] [address] [address] Sep, Panic disorder with agoraphobia and mild panic attacks F40.01 and Drug side effects T88.7XXA [place] [id number] [place] [address] Sep, [facility] [address], [place] [address] Aug, [place] [id number] [place] [address] Aug, Panic disorder with agoraphobia and mild panic attacks F40.01 [facility] [address] [place] [phone] Mar, Encounter for dental exam and cleaning w/o abnormal findings Z01.20 [facility] [id number] [place] [phone] Jan, Dental examination Z01.20 [place] [id number] [place] [address] Dec, Right upper quadrant pain R10.11 and Colicky epigastric pain R10.13 [place] [id number] [place] [address] Jun, [facility] [id number] [place] [address] May, [place] [id number] [place] [address] May, care, first in second trimester Z34.02 and 16 weeks gestation of Z3A.16 [address] [id number] [place] [address] 14 May, 2016 [place] [id number] [place] [address] May, Panic disorder with agoraphobia and mild panic attacks F40.01 [place] [id number] [place] [address] Apr, care, first in first trimester Z34.01 and 12 weeks gestation of Z3A.12 [address] [id number] [place] [address] 17 Apr, 2016 [place] [address], [place] [address] 14 Apr, 2016 Panic disorder with agoraphobia and mild panic attacks F40.01 [facility] [address], [place] [address] 09 Apr, 2016 [facility] [address] [place] [address] Mar, [facility] [id number] [place] [address] Mar, Normal , first Z34.00 ; 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 ; Nausea and vomiting during O21.9 ; Migraine without status migrainosus, not intractable, unspecified migraine type G43.909 and 8 weeks gestation of Z3A.08 [facility] [address], [place] [address] Mar, [facility] [id number] [place] [address] Mar, [facility] [id number] [place] [address] Mar, Panic disorder with agoraphobia and mild panic attacks F40.01 [facility] [address] [address] Mar, [facility] [address] [place] [address] Feb, [facility] [address] [address] Feb, [facility] [id number] [place] [address] Feb, Encounter for test Z32.00 [facility] [address] [address] Feb, Panic disorder with agoraphobia and mild panic attacks F40.01 [facility] [address], [place] [address] Feb, Panic disorder with agoraphobia and mild panic attacks F40.01 [place] [id number] [place] [address] Feb, Panic disorder with agoraphobia and mild panic attacks F40.01 [place] [id number] [place] [address] Jan, Panic disorder with agoraphobia and mild panic attacks F40.01 [place] [id number] [place] [address] Jan, Panic disorder with agoraphobia and mild panic attacks F40.01 [place] [id number] [place] [address] Dec, Panic disorder with agoraphobia and mild panic attacks F40.01 [place] [id number] [place] [address] Dec, Panic disorder with agoraphobia and mild panic attacks F40.01 [facility] [id number] [place] [address] 29 Nov, 2015 Bug bite, initial encounter W57.XXXA [place] [address] [place] [address] Nov, Panic disorder with agoraphobia and mild panic attacks F40.01 [place] [id number] [place] [address] Nov, Panic disorder with agoraphobia and mild panic attacks F40.01 [place] [id number] [place] [address] 24 Oct, 2015 Panic disorder with agoraphobia and mild panic attacks F40.01 [place] [address], [place] [address] Oct, Panic disorder with agoraphobia and mild panic attacks F40.01 [facility] [address] [place] [address] Oct, Panic disorder with agoraphobia and mild panic attacks F40.01 [facility] [id number] [place] [address] Sep, Panic disorder with agoraphobia and mild panic attacks F40.01 [facility] [id number] [place] [address] Sep, Panic disorder F41.0 ; Agoraphobia F40.00 and Generalized anxiety disorder F41.1 [facility] [id number] [place] [address] Oct, Generalized anxiety disorder 300.02 [facility] [id number] [place] [address] Oct, Anxiety 300.00 [facility] [id number] [place] [address] Oct, Anxiety state, unspecified 300.00 and [place] II diagnosis deferred 799.9 [facility] [id number] [place] [address] Sep, [facility] [id number] [place] [id number] July, Dental examination V72.2 [facility] [id number] [place] [address] Jun, [facility] [id number] [place] [address] Jun, [facility] [id number] [place] [address] May, [facility] [id number] [place] [address] May, [facility] [id number] [place] [address] May, [facility] [place] [facility] [address] [id number] [place] [address] May, [facility] [place] [facility] [address] [id number] [place] [address] May, [facility] [place] [facility] [address] [id number] [place] [address] May, [facility] [place] [facility] [address] [id number] [place] [address] May, [facility] [place] [facility] [address] [id number] [place] [address] May, [facility] [place] [facility] [address] [id number] [place] [address] Apr, [facility] [place] [facility] [address] [id number] [place] [address] Apr, [facility] [place] [facility] [address] [id number] [place] [address] Apr, [facility] [place] [facility] [address] [id number] [place] [address] Apr, [facility] [place] [facility] [address] [id number] [place] [address] Jan, [facility] [place] [facility] [address] [id number] [place] [address] Jan, [facility] [place] [facility] [address] [id number] [place] [address] Aug, [facility] [place] [facility] [address] [id number] [place] [address] Aug, [facility] [place] [facility] [address] [id number] [place] [address] Aug, [facility] [place] [facility] [address] [id number] [place] [address] Aug, [facility] [place] [facility] [id number] [address] July, [facility] [id number] [address] Jun, [facility] [id number] [address] Jun, [facility] [id number] [address] Jun, [facility] [id number] [address] 28 May, 2012 [facility] [id number] [place] [id number] 27 May, 2012 [facility] [id number] [place] [address] May, [facility] [id number] [place] [id number] 19 May, 2012 [facility] [id number] [address] 16 May, 2012 [facility] [id number] [address] 14 May, 2012 IMMUNIZATIONS No Known Immunizations SOCIAL HISTORY Never Assessed REASON FOR VISIT vomiting started this morning with headache JStrasserRN PLAN OF CARE Activity Details Follow Up prn Reason: VITAL SIGNS Height 65 in 2017-12-09 Weight 128.0 lbs 2017-12-09 Temperature 97.6 degrees Fahrenheit 2017-12-09 Heart Rate 80 bpm 2017-12-09 Respiratory Rate 18 2017-12-09 BMI 21.30 kg/m2 2017-12-09 Blood pressure systolic 90 mmHg 2017-12-09 Blood pressure diastolic 60 mmHg 2017-12-09 MEDICATIONS Medication Instructions Dosage Frequency Start Date End Date Duration Status tylenol 1 tab Active Zofran ODT 4 MG Orally Every 8 hours PRN 1 tablet on the tongue and allow to dissolve Dec, 5 days Active Paroxetine HCl 40 mg Orally Once a day 1 tablet in the morning 24h Oct, 30 day(s) Active Ibuprofen 800 MG Orally Three times a day as needed 1 tablet with food or milk as needed Nov, Active RESULTS Name Result Date Reference Range STREP A (IN HOUSE) 2017-12-09 STREP A negative Control + Lot # [id number] Exp date 2018-08-06 PROCEDURES Procedure Date Ordered Result Body Site STREP A ASSAY W/OPTIC Dec 09, 2017 INSTRUCTIONS MEDICATIONS ADMINISTERED No Known Medications [...]
--- OUTSIDE RECORDS SUMMARY | 2018-10-16 13:06 | XMS REPORT ---
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 64463261 Problem Panic disorder with agoraphobia and mild panic attacks F40.01 Active 26307838 Problem Unspecified osteoporosis 733.00 Active 06613688 ALLERGIES No Information ENCOUNTERS Encounter Location Date Diagnosis [place] [id number] [place] [address] Oct, Panic disorder with agoraphobia and mild panic attacks F40.01 and 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 [facility] [id number] [place] [address] Sep, Panic disorder with agoraphobia and mild panic attacks F40.01 and Drug side effects T88.7XXA [place] [id number] [place] [address] Sep, [facility] [id number] [place] [address] Aug, [facility] [address] [address] Aug, Panic disorder with agoraphobia and mild panic attacks F40.01 [facility] [address] [place] [phone] Mar, Encounter for dental exam and cleaning w/o abnormal findings Z01.20 [facility] [id number] [id number] Jan, Dental examination Z01.20 [place] [id number] [place] [address] 06 Dec, 2016 Right upper quadrant pain R10.11 and Colicky epigastric pain R10.13 [place] [address] [address] Jun, [place] [id number] [place] [address] May, [facility] [id number] [place] [address] May, care, first in second trimester Z34.02 and 16 weeks gestation of Z3A.16 [place] [id number] [place] [address] 14 May, 2016 [place] [address] [place] [address] May, Panic disorder with agoraphobia and mild panic attacks F40.01 [place] [id number] [place] [address] 23 Apr, 2016 care, first in first trimester Z34.01 and 12 weeks gestation of Z3A.12 [place] [address] [address] 17 Apr, 2016 [facility] [address] [address] 14 Apr, 2016 Panic disorder with agoraphobia and mild panic attacks F40.01 [facility] [address] [address] 09 Apr, 2016 [facility] [address] [address] Mar, [facility] [id number] [place] [address] Mar, Normal , first Z34.00 ; 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 ; Nausea and vomiting during O21.9 ; Migraine without status migrainosus, not intractable, unspecified migraine type G43.909 and 8 weeks gestation of Z3A.08 [facility] [id number] [place] [address] Mar, [facility] [id number] [place] [address] Mar, [facility] [id number] [place] [address] Mar, Panic disorder with agoraphobia and mild panic attacks F40.01 [facility] [id number] [place] [address] Mar, [facility] [id number] [place] [address] Feb, [facility] [id number] [place] [address] Feb, [place] [id number] [place] [address] Feb, Encounter for test Z32.00 [facility] [id number] [place] [address] Feb, Panic disorder with agoraphobia and mild panic attacks F40.01 [facility] [id number] [place] [address] Feb, Panic disorder with agoraphobia and mild panic attacks F40.01 [facility] [id number] [place] [address] Feb, Panic disorder with agoraphobia and mild panic attacks F40.01 [facility] [id number] [place] [address] Jan, Panic disorder with agoraphobia and mild panic attacks F40.01 [facility] [address] [address] Jan, Panic disorder with agoraphobia and mild panic attacks F40.01 [facility] [id number] [place] [address] Dec, Panic disorder with agoraphobia and mild panic attacks F40.01 [facility] [id number] [place] [address] Dec, Panic disorder with agoraphobia and mild panic attacks F40.01 [facility] [id number] [place] [address] Nov, Bug bite, initial encounter W57.XXXA [place] [id number] [place] [address] Nov, Panic disorder with agoraphobia and mild panic attacks F40.01 [place] [id number] [place] [address] Nov, Panic disorder with agoraphobia and mild panic attacks F40.01 [place] [id number] [place] [address] Oct, Panic disorder with agoraphobia and mild panic attacks F40.01 [facility] [id number] [place] [address] Oct, Panic disorder with agoraphobia and mild panic attacks F40.01 [facility] [address] [place] [address] Oct, Panic disorder with agoraphobia and mild panic attacks F40.01 [facility] [id number] [place] [address] Sep, Panic disorder with agoraphobia and mild panic attacks F40.01 [place] [id number] [place] [address] Sep, Panic disorder F41.0 ; Agoraphobia F40.00 and Generalized anxiety disorder F41.1 [facility] [address] [address] Oct, Generalized anxiety disorder 300.02 [facility] [address] [address] Oct, Anxiety 300.00 [facility] [id number] [place] [address] Oct, Anxiety state, unspecified 300.00 and [place] II diagnosis deferred 799.9 [facility] [id number] [place] [address] Sep, [facility] [id number] [place] [id number] July, Dental examination V72.2 [facility] [id number] [place] [address] Jun, [facility] [id number] [place] [address] Jun, [facility] [id number] [place] [address] May, [facility] [address] [address] May, [facility] [id number] [place] [address] May, [facility] [address] [place] [address] May, [facility] [id number] [place] [address] May, [facility] [id number] [address] May, [facility] [id number] [place] [address] May, [facility] [place] [facility] [address] [id number] [place] [address] May, [facility] [place] [facility] [address] [id number] [place] [address] Apr, [facility] [place] [facility] [address] [id number] [place] [address] Apr, [facility] [place] [facility] [address] [id number] [place] [address] Apr, [facility] [place] [facility] [address] [id number] [place] [address] Apr, [facility] [place] [facility] [address] [id number] [place] [address] Jan, [facility] [place] [facility] [address] [id number] [place] [address] Jan, [facility] [place] [facility] [address] [id number] [place] [address] Aug, [facility] [place] [facility] [address] [id number] [place] [address] Aug, [facility] [place] [facility] [address] [id number] [place] [address] Aug, [facility] [place] [facility] [address] [id number] [place] [address] Aug, [facility] [place] [facility] [address] [id number], [place] [address] July, [facility] [place] [facility] [address] [id number] [place] [address] Jun, [facility] [place] [facility] [address] [id number] [place] [address] Jun, [facility] [place] [facility] [address] [id number] [place] [address] Jun, [facility] [place] [facility] [address] [facility] [id number] [place] [address] 28 May, 2012 [facility] [address] [facility] [id number] [address] 27 May, 2012 [facility] [id number] [address] 26 May, 2012 [facility] [address] [facility] [place] [id number], [place] [address] 19 May, 2012 [facility] [address] [facility] [id number] [address] 16 May, 2012 [facility] [address] [facility] [id number] [address] 14 May, 2012 IMMUNIZATIONS No Known Immunizations SOCIAL HISTORY Never Assessed REASON FOR VISIT Requests return call PLAN OF CARE VITAL SIGNS MEDICATIONS No [...]
--- OUTSIDE RECORDS SUMMARY | 2018-10-16 13:06 | XMS REPORT ---
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 Active 46131117 Problem Panic disorder with agoraphobia and mild panic attacks F40.01 Active 88769698 Problem Unspecified osteoporosis 733.00 Active 64622017 ALLERGIES No Information ENCOUNTERS Encounter Location Date Diagnosis [place] [id number] [place] [address] Oct, Panic disorder with agoraphobia and mild panic attacks F40.01 and 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 [facility] [id number] [place] [address] Sep, Panic disorder with agoraphobia and mild panic attacks F40.01 and Drug side effects T88.7XXA [place] [address] [id number] [place] [address] Sep, [facility] [id number] [place] [address] Aug, [facility] [address] [address] Aug, Panic disorder with agoraphobia and mild panic attacks F40.01 [facility] [address] [place] [id number] Mar, Encounter for dental exam and cleaning w/o abnormal findings Z01.20 [facility] [id number] [id number] Jan, Dental examination Z01.20 [place] [id number] [place] [address] 06 Dec, 2016 Right upper quadrant pain R10.11 and Colicky epigastric pain R10.13 [place] [address] [address] Jun, [place] [id number] [place] [address] May, [facility] [id number] [place] [address] May, care, first in second trimester Z34.02 and 16 weeks gestation of Z3A.16 [place] [id number] [place] [address] 14 May, 2016 [place] [address] [place] [address] May, Panic disorder with agoraphobia and mild panic attacks F40.01 [place] [id number] [place] [address] 23 Apr, 2016 care, first in first trimester Z34.01 and 12 weeks gestation of Z3A.12 [place] [address] [address] 17 Apr, 2016 [facility] [address] [address] 14 Apr, 2016 Panic disorder with agoraphobia and mild panic attacks F40.01 [facility] [address] [address] 09 Apr, 2016 [facility] [address] [address] Mar, [facility] [id number] [place] [address] Mar, Normal , first Z34.00 ; 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 ; Nausea and vomiting during O21.9 ; Migraine without status migrainosus, not intractable, unspecified migraine type G43.909 and 8 weeks gestation of Z3A.08 [facility] [id number] [place] [address] Mar, [facility] [id number] [place] [address] Mar, [facility] [address] [place] [address] Mar, Panic disorder with agoraphobia and mild panic attacks F40.01 [facility] [id number] [place] [address] Mar, [facility] [id number] [place] [address] Feb, [facility] [id number] [place] [address] Feb, [place] [id number] [place] [address] Feb, Encounter for test Z32.00 [facility] [id number] [place] [address] Feb, Panic disorder with agoraphobia and mild panic attacks F40.01 [facility] [id number] [place] [address] Feb, Panic disorder with agoraphobia and mild panic attacks F40.01 [facility] [id number] [place] [address] Feb, Panic disorder with agoraphobia and mild panic attacks F40.01 [facility] [id number] [place] [address] Jan, Panic disorder with agoraphobia and mild panic attacks F40.01 [facility] [address] [address] Jan, Panic disorder with agoraphobia and mild panic attacks F40.01 [facility] [id number] [place] [address] Dec, Panic disorder with agoraphobia and mild panic attacks F40.01 [facility] [id number] [place] [address] Dec, Panic disorder with agoraphobia and mild panic attacks F40.01 [facility] [id number] [place] [address] Nov, Bug bite, initial encounter W57.XXXA [place] [address] [place] [address] Nov, Panic disorder with agoraphobia and mild panic attacks F40.01 [place] [address] [place] [address] Nov, Panic disorder with agoraphobia and mild panic attacks F40.01 [place] [address] [place] [address] Oct, Panic disorder with agoraphobia and mild panic attacks F40.01 [facility] [address] [place] [address] Oct, Panic disorder with agoraphobia and mild panic attacks F40.01 [facility] [address] [place] [address] Oct, Panic disorder with agoraphobia and mild panic attacks F40.01 [facility] [id number] [place] [address] Sep, Panic disorder with agoraphobia and mild panic attacks F40.01 [place] [id number] [place] [address] Sep, Panic disorder F41.0 ; Agoraphobia F40.00 and Generalized anxiety disorder F41.1 [facility] [address] [address] Oct, Generalized anxiety disorder 300.02 [facility] [id number] [address] Oct, Anxiety 300.00 [facility] [id number] [place] [address] Oct, Anxiety state, unspecified 300.00 and [place] II diagnosis deferred 799.9 [facility] [id number] [place] [address] Sep, [facility] [id number] [place] [id number] July, Dental examination V72.2 [facility] [id number] [place] [address] Jun, [facility] [id number] [place] [address] Jun, [facility] [id number] [place] [address] May, [facility] [id number] [address] May, [facility] [id number] [place] [address] May, [facility] [address] [place] [address] May, [facility] [id number] [place] [address] May, [facility] [id number] [address] May, [facility] [id number] [place] [address] May, [facility] [place] [facility] [address] [id number] [place] [address] May, [facility] [place] [facility] [address] [id number] [place] [address] Apr, [facility] [place] [facility] [address] [id number] [place] [address] Apr, [facility] [place] [facility] [address] [id number] [place] [address] Apr, [facility] [place] [facility] [address] [id number] [place] [address] Apr, [facility] [place] [facility] [address] [id number] [place] [address] Jan, [facility] [place] [facility] [address] [id number] [place] [address] Jan, [facility] [place] [facility] [address] [id number] [place] [address] Aug, [facility] [place] [facility] [address] [id number] [place] [address] Aug, [facility] [place] [facility] [address] [id number] [place] [address] Aug, [facility] [place] [facility] [address] [id number] [place] [address] Aug, [facility] [place] [facility] [address] [id number] [address] July, [facility] [place] [facility] [address] [id number] [place] [address] Jun, [facility] [place] [facility] [address] [id number] [place] [address] Jun, [facility] [place] [facility] [address] [id number] [place] [address] Jun, [facility] [place] [facility] [address] [facility] [id number] [place] [address] 28 May, 2012 [facility] [address] [facility] [id number] [address] 27 May, 2012 [facility] [id number] [address] 26 May, 2012 [facility] [address] [facility] [id number] [place] [address] 19 May, 2012 [facility] [id number] [address] 16 May, 2012 [facility] [address] [facility] [id number] [place] [address] 14 May, 2012 IMMUNIZATIONS No Known Immunizations [...]
--- OUTSIDE RECORDS SUMMARY | 2018-10-16 13:06 | XMS REPORT ---
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 40006467 Problem Panic disorder with agoraphobia and mild panic attacks F40.01 Active 62247449 Problem Unspecified osteoporosis 733.00 Active 55715572 ALLERGIES Substance Reaction Event Type Date Status Penicillin V Potassium Unknown Drug Allergy Aug, Active Boniva Unknown Drug Allergy Aug, Active ENCOUNTERS Encounter Location Date Diagnosis [facility] [id number] [place] [address] Oct, Panic disorder with agoraphobia and mild panic attacks F40.01 and 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 [facility] [address] [place] [address] Sep, Panic disorder with agoraphobia and mild panic attacks F40.01 and Drug side effects T88.7XXA [facility] [id number] [place] [address] Sep, [facility] [id number] [place] [address] Aug, [facility] [id number] [place] [address] Aug, Panic disorder with agoraphobia and mild panic attacks F40.01 [facility] [address] [place] [id number] Mar, Encounter for dental exam and cleaning w/o abnormal findings Z01.20 [facility] [address] [id number] Jan, Dental examination Z01.20 [facility] [address] [address] Dec, Right upper quadrant pain R10.11 and Colicky epigastric pain R10.13 [facility] [id number] [place] [address] Jun, [facility] [address] [place] [address] May, [facility] [address] [place] [address] May, care, first in second trimester Z34.02 and 16 weeks gestation of Z3A.16 [facility] [address] [place] [address] May, [facility] [id number] [place] [address] May, Panic disorder with agoraphobia and mild panic attacks F40.01 [address] [address] 23 Apr, 2016 care, first in first trimester Z34.01 and 12 weeks gestation of Z3A.12 [facility] [address], [place] [address] Apr, [facility] [address] [address] Apr, Panic disorder with agoraphobia and mild panic attacks F40.01 [facility] [address] [address] 09 Apr, 2016 [facility] [id number] [place] [address] Mar, [facility] [address] [place] [address] Mar, Normal , first Z34.00 ; 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 ; Nausea and vomiting during O21.9 ; Migraine without status migrainosus, not intractable, unspecified migraine type G43.909 and 8 weeks gestation of Z3A.08 [facility] [id number] [place] [address] Mar, [facility] [id number] [place] [address] Mar, [facility] [id number] [place] [address] Mar, Panic disorder with agoraphobia and mild panic attacks F40.01 [facility] [id number] [place] [address] Mar, [facility] [id number] [place] [address] Feb, [facility] [id number] [place] [address] Feb, [facility] [id number] [place] [address] Feb, Encounter for test Z32.00 [facility] [id number] [place] [address] Feb, Panic disorder with agoraphobia and mild panic attacks F40.01 [facility] [id number] [place] [address] Feb, Panic disorder with agoraphobia and mild panic attacks F40.01 [facility] [id number] [place] [address] Feb, Panic disorder with agoraphobia and mild panic attacks F40.01 [facility] [id number] [place] [address] Jan, Panic disorder with agoraphobia and mild panic attacks F40.01 [facility] [id number] [place] [address] Jan, Panic disorder with agoraphobia and mild panic attacks F40.01 [facility] [id number] [place] [address] Dec, Panic disorder with agoraphobia and mild panic attacks F40.01 [facility] [id number] [place] [address] Dec, Panic disorder with agoraphobia and mild panic attacks F40.01 [facility] [id number] [place] [address] Nov, Bug bite, initial encounter W57.XXXA [facility] [id number] [place] [address] Nov, Panic disorder with agoraphobia and mild panic attacks F40.01 [facility] [id number] [place] [address] Nov, Panic disorder with agoraphobia and mild panic attacks F40.01 [facility] [address] [place] [address] Oct, Panic disorder with agoraphobia and mild panic attacks F40.01 [facility] [id number] [place] [address] Oct, Panic disorder with agoraphobia and mild panic attacks F40.01 [facility] [address] [place] [address] Oct, Panic disorder with agoraphobia and mild panic attacks F40.01 [facility] [address] [place] [address] Sep, Panic disorder with agoraphobia and mild panic attacks F40.01 [facility] [address], [place] [address] Sep, Panic disorder F41.0 ; Agoraphobia F40.00 and Generalized anxiety disorder F41.1 [facility] [id number] [place] [address] Oct, Generalized anxiety disorder 300.02 [facility] [id number] [place] [address] Oct, Anxiety 300.00 [facility] [id number] [place] [address] Oct, Anxiety state, unspecified 300.00 and [place] II diagnosis deferred 799.9 [facility] [id number] [place] [address] Sep, [facility] [id number] [place] [id number] July, Dental examination V72.2 [facility] [id number] [place] [address] Jun, [facility] [id number] [place] [address] Jun, [facility] [id number] [place] [address] May, [facility] [id number] [place] [address] May, [facility] [id number] [place] [address] May, [facility] [id number] [place] [address] May, [facility] [id number] [place] [address] May, [facility] [id number] [place] [address] May, [facility] [place] [facility] [address] [id number] [place] [address] May, [facility] [place] [facility] [address] [id number] [place] [address] May, [facility] [place] [facility] [address] [id number] [place] [address] Apr, [facility] [place] [facility] [address] [id number] [place] [address] Apr, [facility] [place] [facility] [address] [id number] [place] [address] Apr, [facility] [place] [facility] [address] [id number] [place] [address] Apr, [facility] [place] [facility] [address] [id number] [place] [address] Jan, [facility] [place] [facility] [address] [id number] [place] [address] Jan, [facility] [place] [facility] [address] [id number] [place] [address] Aug, [facility] [place] [facility] [address] [id number] [place] [address] Aug, [facility] [place] [facility] [address] [id number] [place] [address] Aug, [facility] [place] [facility] [address] [id number] [place] [address] Aug, [facility] [place] [facility] [address] [id number] [place] [address] July, [facility] [place] [facility] [address] [id number] [place] [address] Jun, [facility] [place] [facility] [address] [id number] [place] [address] Jun, [facility] [place] [facility] [address] [id number] [address] 03 Jun, 2012 [facility] [address] [facility] [id number] [address] 28 May, 2012 [facility] [id number] [address] 27 May, 2012 [facility] [id number] [address] 26 May, 2012 [facility] [id number] [address] 19 May, 2012 [facility] [address] [facility] [id number] [address] 16 May, 2012 [facility] [id number] [address] 14 May, 2012 IMMUNIZATIONS No Known Immunizations SOCIAL HISTORY Never Assessed REASON FOR VISIT Transition of Care--Jamia Pt reports history of anxiety and would like to discuss getting medication for that. Has tried hydroxyzine without success, xana x, and valium. PLAN OF CARE Activity Details Follow Up 6 Weeks Reason:anxiety VITAL SIGNS Height 65 in 2017-08-25 Weight 127.0 lbs 2017-08-25 Temperature 98.6 degrees Fahrenheit 2017-08-25 Heart Rate 90 bpm 2017-08-25 Respiratory Rate 18 2017-08-25 BMI 21.13 kg/m2 2017-08-25 Blood pressure systolic 108 mmHg 2017-08-25 Blood pressure diastolic 64 mmHg 2017-08-25 MEDICATIONS Medication Instructions Dosage Frequency Start Date End Date Duration Status tylenol 1 tab Active Escitalopram Oxalate 10 mg Orally Once a day x 1 wk then increase to 2 tabs daily 1 tablet Aug, 30 day(s) Active RESULTS No Results PROCEDURES [...]
--- OUTSIDE RECORDS SUMMARY | 2018-10-16 13:07 | XMS REPORT ---
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 09945969 Problem Panic disorder with agoraphobia and mild panic attacks F40.01 Active 87617801 Problem Unspecified osteoporosis 733.00 Active 02022467 ALLERGIES Substance Reaction Event Type Date Status Penicillin V Potassium Unknown Drug Allergy Mar, Active Boniva Unknown Drug Allergy Mar, Active ENCOUNTERS Encounter Location Date Diagnosis [facility] [id number] [place] [address] Aug, [facility] [id number] [place] [address] Aug, Panic disorder with agoraphobia and mild panic attacks F40.01 [facility] [id number] [place] [id number] Mar, Encounter for dental exam and cleaning w/o abnormal findings Z01.20 [facility] [address] [place] [id number] Jan, Dental examination Z01.20 [facility] [id number] [place] [address] Dec, Right upper quadrant pain R10.11 and Colicky epigastric pain R10.13 [facility] [id number] [place] [address] Jun, [facility] [id number] [place] [address] May, [facility] [address], [place] [address] May, care, first in second trimester Z34.02 and 16 weeks gestation of Z3A.16 [facility] [address], [place] [address] 14 May, 2016 [facility] [id number] [place] [address] May, Panic disorder with agoraphobia and mild panic attacks F40.01 [facility] [address] [place] [address] Apr, care, first in first trimester Z34.01 and 12 weeks gestation of Z3A.12 [facility] [address] [address] 17 Apr, 2016 [facility] [id number] [place] [address] Apr, Panic disorder with agoraphobia and mild panic attacks F40.01 [facility] [id number] [place] [address] 09 Apr, 2016 [facility] [address], [place] [address] Mar, [facility] [address] [place] [address] Mar, Normal , first Z34.00 ; 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 ; Nausea and vomiting during O21.9 ; Migraine without status migrainosus, not intractable, unspecified migraine type G43.909 and 8 weeks gestation of Z3A.08 [facility] [address] [address] Mar, [facility] [address] [address] Mar, [facility] [address] [address] Mar, Panic disorder with agoraphobia and mild panic attacks F40.01 [facility] [address] [address] Mar, [facility] [id number] [place] [address] Feb, [facility] [id number] [place] [address] Feb, [facility] [id number] [place] [address] Feb, Encounter for test Z32.00 [facility] [id number] [place] [address] Feb, Panic disorder with agoraphobia and mild panic attacks F40.01 [facility] [address] [place] [address] Feb, Panic disorder with agoraphobia and mild panic attacks F40.01 [facility] [id number] [place] [address] Feb, Panic disorder with agoraphobia and mild panic attacks F40.01 [facility] [address] [address] Jan, Panic disorder with agoraphobia and mild panic attacks F40.01 [facility] [address] [address] Jan, Panic disorder with agoraphobia and mild panic attacks F40.01 [facility] [address] [place] [address] Dec, Panic disorder with agoraphobia and mild panic attacks F40.01 [facility] [address] [address] Dec, Panic disorder with agoraphobia and mild panic attacks F40.01 [facility] [address] [place] [address] 29 Nov, 2015 Bug bite, initial encounter W57.XXXA [facility] [id number] [place] [address] Nov, Panic disorder with agoraphobia and mild panic attacks F40.01 [facility] [address] [address] Nov, Panic disorder with agoraphobia and mild panic attacks F40.01 [place] [id number] [place] [address] Oct, Panic disorder with agoraphobia and mild panic attacks F40.01 [facility] [id number] [place] [address] Oct, Panic disorder with agoraphobia and mild panic attacks F40.01 [facility] [id number] [place] [address] Oct, Panic disorder with agoraphobia and mild panic attacks F40.01 [facility] [id number] [place] [address] Sep, Panic disorder with agoraphobia and mild panic attacks F40.01 [facility] [id number] [place] [address] Sep, Panic disorder F41.0 ; Agoraphobia F40.00 and Generalized anxiety disorder F41.1 [facility] [id number] [place] [address] Oct, Generalized anxiety disorder 300.02 [facility] [id number] [place] [address] Oct, Anxiety 300.00 [facility] [id number] [place] [address] Oct, Anxiety state, unspecified 300.00 and [place] II diagnosis deferred 799.9 [facility] [id number] [address] Sep, [facility] [address] [id number] [id number] July, Dental examination V72.2 [facility] [address], [place] [address] 14 Jun, 2014 [facility] [address] [address] Jun, [facility] [address] [address] May, [facility] [id number] [address] May, [facility] [address], [place] [address] May, [facility] [address] [address] May, [facility] [address] [address] May, [facility] [address] [address] May, [facility] [address] [address] May, [facility] [address] [address] May, [facility] [address] [address] Apr, [facility] [address], [place] [address] Apr, [facility] [address] [address] Apr, [facility] [address] [id number] [place] [address] Apr, [facility] [place] [facility] [address] [id number] [place] [address] Jan, [facility] [place] [facility] [address] [id number] [place] [address] Jan, [facility] [place] [facility] [address] [id number] [place] [address] Aug, [facility] [place] [facility] [address] [id number] [place] [address] Aug, [facility] [place] [facility] [address] [id number] [place] [address] Aug, [facility] [place] [facility] [address] [id number] [place] [address] Aug, [facility] [place] [facility] [address] [id number] [place] [address] July, [facility] [place] [facility] [address] [id number] [place] [address] Jun, [facility] [place] [facility] [address] [id number] [place] [address] Jun, [facility] [place] [facility] [address] [id number] [place] [address] Jun, [facility] [place] [facility] [address] [id number] [place] [address] 28 May, 2012 [facility] [place] [facility] [address] [id number] [place] [address] 27 May, 2012 [facility] [place] [facility] [address] [id number] [place] [address] 26 May, 2012 [facility] [place] [facility] [address] [id number] [place] [address] 19 May, 2012 [facility] [place] [facility] [address] [id number] [place] [address] 16 May, 2012 [facility] [address] [facility] [id number] [place] [address] May, IMMUNIZATIONS No Known Immunizations SOCIAL HISTORY Never Assessed REASON FOR VISIT ADULT PROPHY-PATIENT WANTS NEW [place] PLAN OF CARE Activity Details Follow Up willem Reason:#[address] luis only- 45 minutes VITAL SIGNS MEDICATIONS Medication Instructions Dosage Frequency Start Date End Date Duration Status BusPIRone HCl 7.5 MG Orally Twice a day prn 1 tablet 30 days Not-Taking Florajen3 - Not-Taking Vitamin 27-0.8 MG Not-Taking Prilosec OTC 20 MG Orally Once a day 1 tablet 24h Not-Taking Vitamin D 1000 UNIT Orally Once a day 1 tablet 24h Not-Taking iron 1 tab Not-Taking Promethazine HCl 25 MG Orally every 6 hrs 1 tablet as needed 6h Jun, Not-Taking Calcium 600 MG Orally Once a day 1 tablet with meals 24h Not-Taking RESULTS No Results PROCEDURES Procedure Date Ordered Result Body Site PERIODIC ORAL EXAMINATION Apr 06, 2017 PROPHYLAXIS - ADULT Apr 06, 2017 TOPICAL FLUORIDE VARNISH Apr 06, 2017 INSTRUCTIONS MEDICATIONS ADMINISTERED No Known Medications [...]
--- OUTSIDE RECORDS SUMMARY | 2018-10-16 13:07 | XMS REPORT ---
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 70532046 Problem Panic disorder with agoraphobia and mild panic attacks F40.01 Active 88438338 Problem Unspecified osteoporosis 733.00 Active 35327592 ALLERGIES Substance Reaction Event Type Date Status Penicillin V Potassium Unknown Drug Allergy Dec, Active Boniva Unknown Drug Allergy Dec, Active ENCOUNTERS Encounter Location Date Diagnosis [facility] [id number] [place] [id number] Mar, Encounter for dental exam and cleaning w/o abnormal findings Z01.20 [facility] [address] [place] [id number] Jan, Dental examination Z01.20 [facility] [address] [place] [address] Dec, Right upper quadrant pain R10.11 and Colicky epigastric pain R10.13 [facility] [address] [place] [address] Jun, [facility] [id number] [place] [address] May, [facility] [address] [place] [address] May, care, first in second trimester Z34.02 and 16 weeks gestation of Z3A.16 [place] [address] [address] 14 May, 2016 [place] [id number] [place] [address] May, Panic disorder with agoraphobia and mild panic attacks F40.01 [place] [address] [place] [address] 23 Apr, 2016 care, first in first trimester Z34.01 and 12 weeks gestation of Z3A.12 [place] [address] [place] [address] 17 Apr, 2016 [place] [id number] [place] [address] 14 Apr, 2016 Panic disorder with agoraphobia and mild panic attacks F40.01 [place] [id number] [place] [address] Apr, [facility] [address] [address] Mar, [place] [id number] [place] [address] Mar, Normal , first Z34.00 ; 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 ; Nausea and vomiting during O21.9 ; Migraine without status migrainosus, not intractable, unspecified migraine type G43.909 and 8 weeks gestation of Z3A.08 [place] [address] [address] Mar, [place] [id number] [place] [address] Mar, [place] [id number] [place] [address] Mar, Panic disorder with agoraphobia and mild panic attacks F40.01 [facility] [address] [place] [address] Mar, [facility] [id number] [place] [address] Feb, [facility] [id number] [place] [address] Feb, [facility] [id number] [place] [address] Feb, Encounter for test Z32.00 [facility] [id number] [place] [address] Feb, Panic disorder with agoraphobia and mild panic attacks F40.01 [facility] [id number] [place] [address] Feb, Panic disorder with agoraphobia and mild panic attacks F40.01 [facility] [id number] [place] [address] Feb, Panic disorder with agoraphobia and mild panic attacks F40.01 [facility] [id number] [place] [address] Jan, Panic disorder with agoraphobia and mild panic attacks F40.01 [facility] [id number] [place] [address] Jan, Panic disorder with agoraphobia and mild panic attacks F40.01 [facility] [id number] [place] [address] Dec, Panic disorder with agoraphobia and mild panic attacks F40.01 [facility] [id number] [place] [address] Dec, Panic disorder with agoraphobia and mild panic attacks F40.01 [facility] [address] [place] [address] Nov, Bug bite, initial encounter W57.XXXA [facility] [address] [place] [address] Nov, Panic disorder with agoraphobia and mild panic attacks F40.01 [facility] [id number] [place] [address] Nov, Panic disorder with agoraphobia and mild panic attacks F40.01 [facility] [id number] [place] [address] Oct, Panic disorder with agoraphobia and mild panic attacks F40.01 [facility] [id number] [place] [address] Oct, Panic disorder with agoraphobia and mild panic attacks F40.01 [facility] [id number] [place] [address] Oct, Panic disorder with agoraphobia and mild panic attacks F40.01 [facility] [id number] [place] [address] Sep, Panic disorder with agoraphobia and mild panic attacks F40.01 [facility] [id number] [place] [address] Sep, Panic disorder F41.0 ; Agoraphobia F40.00 and Generalized anxiety disorder F41.1 [facility] [id number] [place] [address] Oct, Generalized anxiety disorder 300.02 [facility] [id number] [place] [address] Oct, Anxiety 300.00 [facility] [id number] [place] [address] Oct, Anxiety state, unspecified 300.00 and [place] II diagnosis deferred 799.9 [facility] [id number] [place] [address] Sep, [facility] [address] [id number] July, Dental examination V72.2 [facility] [place] [facility] [address] [id number] [place] [address] 14 Jun, 2014 [facility] [place] [facility] [address] [facility] [id number] [address] Jun, [facility] [place] [facility] [address] [facility] [id number] [place] [address] May, [facility] [place] [facility] [address] [facility] [id number] [place] [address] May, [facility] [place] [facility] [address] [facility] [id number] [place] [address] May, [facility] [place] [facility] [address] [facility] [id number] [place] [address] May, [facility] [place] [facility] [id number] [address] May, [facility] [place] [facility] [address] [facility] [id number] [place] [address] May, [facility] [place] [facility] [address] [facility] [id number] [place] [address] May, [facility] [place] [facility] [address] [facility] [id number] [place] [address] May, [facility] [place] [facility] [address] [facility] [id number] [place] [address] Apr, [facility] [place] [facility] [address] [facility] [id number] [place] [address] Apr, [facility] [place] [facility] [address] [facility] [id number] [place] [address] Apr, [facility] [place] [facility] [address] [facility] [id number] [place] [address] Apr, [facility] [place] [facility] [address] [facility] [id number] [place] [address] Jan, [facility] [address] [facility] [id number] [place] [address] Jan, [facility] [address] [facility] [id number] [place] [address] Aug, [facility] [address] [facility] [id number] [place] [address] Aug, [facility] [address] [place] [address] Aug, [facility] [address] [facility] [id number] [place] [address] Aug, [facility] [address] [place] [address] July, [facility] [address] [place] [address] Jun, [facility] [address] [address] Jun, [facility] [address] [place] [address] Jun, [facility] [address] [address] 28 May, 2012 [facility] [address] [address] 27 May, 2012 [facility] [address] [address] 26 May, 2012 [facility] [id number] [address] 19 May, 2012 [facility] [address] [address] 16 May, 2012 [facility] [id number] [address] 14 May, 2012 IMMUNIZATIONS No Known Immunizations SOCIAL HISTORY Never Assessed REASON FOR VISIT Stomach ache with cramping /vomiting / nauseas x 2 months -- raciel centeno PLAN OF CARE Activity Details Follow Up prn- determine based on results Reason: VITAL SIGNS Height 65 in 2016-12-12 Weight 134.5 lbs 2016-12-12 Temperature 97.8 degrees Fahrenheit 2016-12-12 Heart Rate 78 bpm 2016-12-12 Respiratory Rate 20 2016-12-12 BMI 22.38 kg/m2 2016-12-12 Blood pressure systolic 118 mmHg 2016-12-12 Blood pressure diastolic 76 mmHg 2016-12-12 MEDICATIONS Medication Instructions Dosage Frequency Start Date End Date Duration Status Calcium 600 MG Orally Once a day 1 tablet with meals 24h Active Vitamin 27-0.8 MG Active Prilosec OTC 20 MG Orally Once a day 1 tablet 24h Active iron 1 tab Active Vitamin D 1000 UNIT Orally Once a day 1 tablet 24h Active RESULTS Name Result Date Reference Range LIPASE 2016-12-12 Lipase, Serum 38 14-72 CBC 2016-12-12 WBC 4.5 3.4-10.8 RBC 5.02 3.77-5.28 Hemoglobin 13.4 11.1-15.9 Hematocrit 42.0 34.0-46.6 MCV 84 79-97 MCH 26.7 26.6-33.0 MCHC 31.9 31.5-35.7 RDW 14.3 12.3-15.4 Platelets 195 150-379 Neutrophils 55 Not Estab. Lymphs 30 Not Estab. Monocytes 12 Not Estab. Eos 2 Not Estab. Basos 1 Not Estab. Neutrophils (Absolute) 2.5 1.4-7.0 Lymphs (Absolute) 1.4 0.7-3.1 Monocytes(Absolute) 0.6 0.1-0.9 Eos (Absolute) 0.1 0.0-0.4 Baso (Absolute) 0.0 0.0-0.2 Immature Granulocytes 0 Not Estab. Immature Grans (Abs) 0.0 0.0-0.1 CMP 2016-12-12 Glucose, Serum 92 65-99 BUN 13 6-20 Creatinine, Serum 0.87 0.57-1.00 eGFR If NonAfricn Am 94 >59 eGFR If Africn Am 109 >59 BUN/Creatinine Ratio 15 9-23 Sodium, Serum 141 134-144 Potassium, Serum 4.0 3.5-5.2 Chloride, Serum 101 96-106 Carbon Dioxide, Total 23 18-29 Calcium, Serum 9.4 8.7-10.2 Protein, Total, Serum 7.1 6.0-8.5 Albumin, Serum 4.4 3.5-5.5 Globulin, Total 2.7 1.5-4.5 A/G Ratio 1.6 1.2-2.2 Bilirubin, Total 0.2 0.0-1.2 Alkaline Phosphatase, S 102 39-117 AST (SGOT) 19 0-40 ALT (SGPT) 22 0-32 Ultrasound : Gallbladder 2016-12-17 PROCEDURES Procedure Date Ordered Result Body Site [facility] Dec 12, 2016 VENIPUNCT, ROUTINE* Dec 12, 2016 INSTRUCTIONS MEDICATIONS ADMINISTERED No Known Medications MEDICAL [...]
--- OUTSIDE RECORDS SUMMARY | 2018-10-16 13:08 | XMS REPORT ---
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 60047079 Problem Panic disorder with agoraphobia and mild panic attacks F40.01 Active 55315286 Problem Unspecified osteoporosis 733.00 Active 53053064 ALLERGIES Substance Reaction Event Type Date Status Penicillin V Potassium Unknown Drug Allergy Jan, Active Boniva Unknown Drug Allergy Jan, Active ENCOUNTERS Encounter Location Date Diagnosis [facility] [id number] [place] [id number] Mar, Encounter for dental exam and cleaning w/o abnormal findings Z01.20 [facility] [address] [id number] Jan, Dental examination Z01.20 [facility] [id number] [place] [address] Dec, Right upper quadrant pain R10.11 and Colicky epigastric pain R10.13 [facility] [id number] [place] [address] Jun, [facility] [id number] [place] [address] May, [facility] [id number] [place] [address] May, care, first in second trimester Z34.02 and 16 weeks gestation of Z3A.16 [facility] [id number] [place] [address] May, [facility] [address] [place] [address] May, Panic disorder with agoraphobia and mild panic attacks F40.01 [facility] [address], [place] [address] 23 Apr, 2016 care, first in first trimester Z34.01 and 12 weeks gestation of Z3A.12 [facility] [id number] [place] [address] 17 Apr, 2016 [place] [id number] [place] [address] 14 Apr, 2016 Panic disorder with agoraphobia and mild panic attacks F40.01 [place] [id number] [place] [address] 09 Apr, 2016 [facility] [id number] [place] [address] Mar, [facility] [id number] [place] [address] Mar, Normal , first Z34.00 ; 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 ; Nausea and vomiting during O21.9 ; Migraine without status migrainosus, not intractable, unspecified migraine type G43.909 and 8 weeks gestation of Z3A.08 [place] [address] [place] [address] Mar, [facility] [address], [place] [address] Mar, [place] [id number] [place] [address] Mar, Panic disorder with agoraphobia and mild panic attacks F40.01 [facility] [address], [place] [address] Mar, [place] [address] [place] [address] Feb, [facility] [id number] [place] [address] Feb, [facility] [id number] [place] [address] Feb, Encounter for test Z32.00 [facility] [address] [address] Feb, Panic disorder with agoraphobia and mild panic attacks F40.01 [place] [id number] [place] [address] Feb, Panic disorder with agoraphobia and mild panic attacks F40.01 [place] [id number] [place] [address] Feb, Panic disorder with agoraphobia and mild panic attacks F40.01 [facility] [id number] [place] [address] Jan, Panic disorder with agoraphobia and mild panic attacks F40.01 [place] [id number] [place] [address] Jan, Panic disorder with agoraphobia and mild panic attacks F40.01 [place] [id number] [place] [address] Dec, Panic disorder with agoraphobia and mild panic attacks F40.01 [facility] [id number] [place] [address] Dec, Panic disorder with agoraphobia and mild panic attacks F40.01 [facility] [id number] [place] [address] Nov, Bug bite, initial encounter W57.XXXA [facility] [address] [address] Nov, Panic disorder with agoraphobia and mild panic attacks F40.01 [facility] [address] [place] [address] Nov, Panic disorder with agoraphobia and mild panic attacks F40.01 [facility] [id number] [place] [address] Oct, Panic disorder with agoraphobia and mild panic attacks F40.01 [facility] [id number] [place] [address] Oct, Panic disorder with agoraphobia and mild panic attacks F40.01 [facility] [id number] [place] [address] Oct, Panic disorder with agoraphobia and mild panic attacks F40.01 [facility] [id number] [place] [address] Sep, Panic disorder with agoraphobia and mild panic attacks F40.01 [facility] [id number] [place] [address] Sep, Panic disorder F41.0 ; Agoraphobia F40.00 and Generalized anxiety disorder F41.1 [facility] [address] [place] [address] Oct, Generalized anxiety disorder 300.02 [facility] [id number] [place] [address] Oct, Anxiety 300.00 [facility] [id number] [place] [address] Oct, Anxiety state, unspecified 300.00 and [place] II diagnosis deferred 799.9 [facility] [address] [place] [address] Sep, [facility] [address] [place] [id number] July, Dental examination V72.2 [facility] [place] [facility] [address] [id number] [place] [address] 14 Jun, 2014 [facility] [place] [facility] [address] [id number] [place] [address] 13 Jun, 2014 [facility] [place] [facility] [address] [id number] [place] [address] 18 May, 2014 [facility] [place] [facility] [address] [id number] [place] [address] May, [facility] [place] [facility] [address] [id number] [place] [address] May, [facility] [place] [facility] [address] [id number] [place] [address] May, [facility] [place] [facility] [address] [id number] [place] [address] May, [facility] [place] [facility] [address] [id number] [place] [address] May, [facility] [place] [facility] [address] [id number] [place] [address] May, [facility] [place] [facility] [address] [id number] [place] [address] May, [facility] [place] [facility] [address] [id number] [place] [address] Apr, [facility] [place] [facility] [address] [id number] [place] [address] Apr, [facility] [place] [facility] [address] [id number] [place] [address] Apr, [facility] [place] [facility] [address] [id number] [place] [address] Apr, [facility] [place] [facility] [address] [id number] [place] [address] Jan, [facility] [place] [facility] [id number] [address] Jan, [facility] [address], [place] [address] Aug, [facility] [address], [place] [address] Aug, [facility] [address], [place] [address] Aug, [facility] [address], [place] [address] Aug, [facility] [address], [place] [address] July, [facility] [address], [place] [address] Jun, [facility] [address], [place] [address] Jun, [facility] [address], [place] [address] Jun, [facility] [address], [place] [address] May, [facility] [address], [place] [address] May, [facility] [address], [place] [address] May, [facility] [address], [place] [address] 19 May, 2012 [facility] [address], [place] [address] 16 May, 2012 [facility] [id number], [place] [address] 14 May, 2012 IMMUNIZATIONS No Known Immunizations SOCIAL HISTORY Never Assessed REASON FOR VISIT donato-pt from [facility] PLAN OF CARE Activity Details Follow Up prn Reason:hygiene VITAL SIGNS MEDICATIONS Medication Instructions Dosage Frequency Start Date End Date Duration Status Vitamin D 1000 UNIT Orally Once a day 1 tablet 24h Active Promethazine HCl 25 MG Orally every 6 hrs 1 tablet as needed 6h Jun, Not-Taking Calcium 600 MG Orally Once a day 1 tablet with meals 24h Active Prilosec OTC 20 MG Orally Once a day 1 tablet 24h Active BusPIRone HCl 7.5 MG Orally Twice a day prn 1 tablet 30 days Not-Taking Florajen3 - Not-Taking iron 1 tab Active Vitamin 27-0.8 MG Active RESULTS No Results PROCEDURES Procedure Date Ordered Result Body Site COMP ORAL EVALUATION - NEW/EST PT Jan 22, 2017 INTRAORL-PERIAPICAL 1 FILM [id number] Jan 22, 2017 SEALANT - PER TOOTH Jan 22, 2017 INTRAORL-PERIAPICAL EA ADD FILM Jan 22, 2017 INTRAORL-PERIAPICAL EA ADD FILM Jan 22, 2017 SEALANT - PER TOOTH Jan 22, 2017 BITEWINGS - FOUR FILMS Jan 22, 2017 INSTRUCTIONS MEDICATIONS ADMINISTERED No Known Medications [...]
--- OUTSIDE RECORDS SUMMARY | 2018-10-16 13:08 | XMS REPORT ---
Author Author NAFISA CARTER Organization 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
--- OUTSIDE RECORDS SUMMARY | 2018-10-16 13:08 | XMS REPORT ---
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 22362772 Problem Panic disorder with agoraphobia and mild panic attacks F40.01 Active 00874142 Problem Unspecified osteoporosis 733.00 Active 21087106 ALLERGIES No Information SOCIAL HISTORY Never Assessed PLAN OF CARE Activity Details Follow Up 4 Weeks, 4 Weeks, 4 Weeks Reason: VITAL SIGNS Height 65 in 2016-05-29 Weight 124.6 lbs 2016-05-29 Temperature 98.7 degrees Fahrenheit 2016-05-29 Heart Rate 72 bpm 2016-05-29 Respiratory Rate 18 2016-05-29 BMI 20.735 kg/m2 2016-05-29 Blood pressure systolic 126 mmHg 2016-05-29 Blood pressure diastolic 78 mmHg 2016-05-29 MEDICATIONS Medication Instructions Dosage Frequency Start Date End Date Duration Status Vitamin 27-0.8 MG Active RESULTS Name Result Date Reference Range UA OB DIP (IN HOUSE) 2016-05-29 Glucose neg Protein trace PROCEDURES Procedure Date Ordered Result Body Site URINE-NO MICRO May 29, 2016 IMMUNIZATIONS No Known Immunizations MEDICAL (GENERAL) [...]
--- OUTSIDE RECORDS SUMMARY | 2018-10-16 13:10 | XMS REPORT | Continuity of Care Document ---
Author Organization Unknown Address Unknown Phone Unavailable Allergies Active Description Code Type Severity Reaction Onset Reported/Identified Relationship to Patient Clinical Status Yes Boniva Drug Allergy N/A N/A 05/20/2012 Yes Penicillins Drug Allergy N/A N/A 05/20/2012 Yes Boniva Drug Allergy 05/20/2012 Yes Penicillins Drug Allergy 05/20/2012 Yes Penicillins [id number] Drug Allergy Mild N/A 08/05/2012 Yes ibandronate sodium [id number] Drug Allergy Unknown N/A 05/14/2016 Medications There is no data. Problems Date Dx Coded Attending Type Code Diagnosis Diagnosed By 05/20/2012 626.2 MENORRHAGIA 05/20/2012 HUNTER HORTON MD 626.2 MENORRHAGIA 05/20/2012 TABBY AMADO DO 626.2 MENORRHAGIA 05/20/2012 DIANA HILL APRN 626.2 MENORRHAGIA 05/20/2012 HANNAH MCCOLLUM APRN 626.2 MENORRHAGIA 06/01/2012 HUNTER HORTON MD 733.99 DISORDER OF BONE DENSITY AND STRUCTURE 06/01/2012 TABBY AMADO DO 733.99 DISORDER OF BONE DENSITY AND STRUCTURE 06/01/2012 DIANA HILL APRN 733.99 DISORDER OF BONE DENSITY AND STRUCTURE 06/01/2012 HANNAH MCCOLLUM APRN 733.99 DISORDER OF BONE DENSITY AND STRUCTURE 08/05/2012 SELAM MOTA, AMANDA Baldwin Ot 626.8 MENSTRUAL DISORDER NEC 08/09/2013 TABBY AMADO DO 795.51 NONSPECIFIC REACTION TO TUBERCULIN SKIN TEST WITHOUT ACTIVE TUBERCULOSIS 08/09/2013 DIANA HILL APRN 795.51 NONSPECIFIC REACTION TO TUBERCULIN SKIN TEST WITHOUT ACTIVE TUBERCULOSIS 08/09/2013 HANNAH MCCOLLUM APRN 795.51 NONSPECIFIC REACTION TO TUBERCULIN SKIN TEST WITHOUT ACTIVE TUBERCULOSIS 01/18/2014 SERGIO [employer] MANAGER, DIANA A 625.8 OTHER SPECIFIED SYMPTOMS ASSOCIATED WITH FEMALE GENITAL ORGANS 01/18/2014 CHUN SUGAR PLANTATION MANAGERHALINA RaviA L 625.8 OTHER SPECIFIED SYMPTOMS ASSOCIATED WITH FEMALE GENITAL ORGANS 05/02/2014 HALINA MCCOLLUM APRNA L 268.9 UNSPECIFIED VITAMIN D DEFICIENCY 05/02/2014 SAMANTHAL [employer]ANTATION MANAGER, HANNAH L 625.9 UNSPECIFIED SYMPTOM ASSOCIATED WITH FEMALE GENITAL ORGANS 05/02/2014 SAMANTHA SUGAR PLANTATION MANAGERHALINAA L 724.2 LUMBAGO 05/02/2014 SAMANTHAL [employer] MANAGER, HANNAH L 733.00 OSTEOPOROSIS UNSPECIFIED 05/24/2014 SAMANTHAL [employer] MANAGER, HANNAH L 300.00 ANXIETY UNSPEC 05/24/2014 SAMANTHAL [employer] MANAGER, HANANH L 733.90 DISORDER OF BONE AND CARTILAGE UNSPECIFIED 06/13/2014 Ot 733.90 06/13/2014 Ot 620.2 06/13/2014 Ot 733.90 06/28/2014 Ot 620.2 06/28/2014 Ot 733.90 03/10/2016 Ot 733.90 BONE CARTILAGE DIS NOS 03/10/2016 Ot 620.2 OVARIAN CYST NEC/NOS 03/10/2016 Ot 733.90 BONE CARTILAGE DIS NOS 03/10/2016 KEITH SOLER DO Ot O26.891 OTH RELATED CONDITIONS, FIRST 03/10/2016 KEITH SOLER DO Ot R10.84 GENERALIZED ABDOMINAL PAIN 03/10/2016 KEITH SOLER DO Ot Z3A.01 LESS THAN 8 WEEKS GESTATION OF 03/10/2016 Ot 733.90 BONE CARTILAGE DIS NOS 03/10/2016 Ot 620.2 OVARIAN CYST NEC/NOS 03/10/2016 Ot 733.90 BONE CARTILAGE DIS NOS 03/12/2016 KEITH SOLER DO Ot O26.891 OTH RELATED CONDITIONS, FIRST 03/12/2016 KEITH SOLER DO Ot R10.84 GENERALIZED ABDOMINAL PAIN 03/12/2016 KEITH SOLER DO Ot Z3A.01 LESS THAN 8 WEEKS GESTATION OF 03/16/2016 KEITH SOLER DO Ot O26.891 OTH RELATED CONDITIONS, FIRST 03/16/2016 KEITH SOLER DO Ot R10.84 GENERALIZED ABDOMINAL PAIN 03/16/2016 RYDER DO, KEITH D Ot Z3A.01 LESS THAN 8 WEEKS GESTATION OF 04/11/2016 ISAAK STEPHEN MD Ot Z34.01 ENCNTR FOR SUPRVSN OF NORMAL FIRST PREG, 04/11/2016 ISAAK STEPHEN MD Ot Z3A.09 9 WEEKS GESTATION OF 04/29/2016 Ot 733.90 BONE CARTILAGE DIS NOS 04/29/2016 Ot 620.2 OVARIAN CYST NEC/NOS 04/29/2016 Ot 733.90 BONE CARTILAGE DIS NOS 04/29/2016 ISAAK STEPHEN MD Ot Z34.01 ENCNTR FOR SUPRVSN OF NORMAL FIRST PREG, 04/29/2016 ISAAK STEPHEN MD Ot Z3A.09 9 WEEKS GESTATION OF 05/02/2016 ERNST CHAPMAN Ot D69.1 QUALITATIVE PLATELET DEFECTS 05/02/2016 ERNST CHAPMAN Ot O99.111 OTH DIS OF BLD/BLD-FORM ORG/IMMUN MECHNS 05/02/2016 ERNST CHAPMAN Ot Z3A.12 12 WEEKS GESTATION OF 05/09/2016 ISAAK STEPHEN MD Ot Z34.01 ENCNTR FOR SUPRVSN OF NORMAL FIRST PREG, 05/09/2016 ISAAK STEPHEN MD Ot Z3A.09 9 WEEKS GESTATION OF 05/10/2016 ISAAK STEPHEN MD Ot Z34.01 ENCNTR FOR SUPRVSN OF NORMAL FIRST PREG, 05/10/2016 ISAAK STEPHEN MD Ot Z3A.09 9 WEEKS GESTATION OF 05/13/2016 JARRETT FRIEDMAN MD Ot G43.909 MIGRAINE, UNSP, NOT INTRACTABLE, WITHOUT 05/13/2016 JARRETT FRIEDMAN MD T Ot Z3A.14 14 WEEKS GESTATION OF 05/14/2016 JARRETT FRIEDMAN MD Ot G43.909 MIGRAINE, UNSP, NOT INTRACTABLE, WITHOUT 05/14/2016 JARRETT FRIEDMAN MD T Ot Z3A.14 14 WEEKS GESTATION OF 05/20/2016 JARRETT FRIEDMAN MD Ot G43.909 MIGRAINE, UNSP, NOT INTRACTABLE, WITHOUT 05/20/2016 JARRETT FRIEDMAN MD T Ot Z3A.14 14 WEEKS GESTATION OF 05/23/2016 ISAAK STEPHEN MD, Ot Z34.01 ENCNTR FOR SUPRVSN OF NORMAL FIRST PREG, 05/23/2016 ISAAK STEPHEN MD, Ot Z3A.09 9 WEEKS GESTATION OF 05/26/2016 ERNST CHAPMAN Ot D69.1 QUALITATIVE PLATELET DEFECTS 05/26/2016 ERNST CHAPMAN Ot O99.111 OTH DIS OF BLD/BLD-FORM ORG/IMMUN MECHNS 05/26/2016 ERNST CHAPMAN Ot Z3A.12 12 WEEKS GESTATION OF 07/01/2016 STEFANIE PABON MD Ot Z36 ENCOUNTER FOR SCREENING OF MOT 07/11/2016 STEFANIE PABON MD Ot Z36 ENCOUNTER FOR SCREENING OF MOT 07/27/2016 ERNST CHAPMAN Ot D69.1 QUALITATIVE PLATELET DEFECTS 07/27/2016 ERNST CHAPMAN Ot O99.111 OTH DIS OF BLD/BLD-FORM ORG/IMMUN MECHNS 07/27/2016 ERNST CHAPMAN Ot Z3A.12 12 WEEKS GESTATION OF 07/27/2016 HORTENSIA JAIN MD, Ot K21.9 GASTRO-ESOPHAGEAL REFLUX DISEASE WITHOUT 07/27/2016 HORTENSIA JAIN MD, Ot O99.612 DISEASES OF THE DGSTV SYS COMP 07/27/2016 HORTENSIA JAIN MD, Ot Z3A.25 25 WEEKS GESTATION OF 08/02/2016 ERNST CHAPMAN Ot D69.1 QUALITATIVE PLATELET DEFECTS 08/02/2016 ERNST CHAPMAN Ot O99.111 OTH DIS OF BLD/BLD-FORM ORG/IMMUN MECHNS 08/02/2016 ERNST CHAPMAN Ot Z3A.12 12 WEEKS GESTATION OF 08/11/2016 STEFANIE PABON MD Ot Z36 ENCOUNTER FOR SCREENING OF MOT 08/11/2016 STEFANIE PABON MD Ot Z3A.29 29 WEEKS GESTATION OF 08/25/2016 STEFANIE PABON MD Ot Z36 ENCOUNTER FOR SCREENING OF MOT 08/25/2016 STEFANIE PABON MD Ot Z3A.29 29 WEEKS GESTATION OF 09/05/2016 STEFANIE PABON MD, Ot Z36 ENCOUNTER FOR SCREENING OF MOT 09/05/2016 STEFANIE PABON MD, Ot Z3A.00 WEEKS OF GESTATION OF NOT SPEC 11/09/2016 ADAN GREEN BRUCE Chauhan Ot D62 ACUTE POSTHEMORRHAGIC ANEMIA 11/09/2016 ADAN GREEN BRUCE Chauhan Ot O46.003 ANTEPARTUM HEMORRHAGE W COAG DEFECT, UNS 11/09/2016 ADAN GREEN BRUCE Chauhan Ot O90.81 ANEMIA OF THE PUERPERIUM 11/09/2016 ADAN GREEN BRUCE Chauhan Ot Z37.0 SINGLE LIVE 11/09/2016 ADAN GREEN BRUCE Chauhan Ot Z3A.39 39 WEEKS GESTATION OF 12/29/2016 SATINDER LYNCH MD, Ot K80.20 CALCULUS OF GALLBLADDER W/O CHOLECYSTITI 12/29/2016 SATINDER LYNCH MD, Ot Z01.812 ENCOUNTER FOR PREPROCEDURAL LABORATORY E 01/01/2017 ISAAK STEPHEN MD Ot K80.20 CALCULUS OF GALLBLADDER W/O CHOLECYSTITI 01/01/2017 SATINDER LYNCH MD, Ot D69.1 QUALITATIVE PLATELET DEFECTS 01/01/2017 SATINDER LYNCH MD, Ot F41.9 ANXIETY DISORDER, UNSPECIFIED 01/01/2017 SATINDER LYNCH MD, Ot K21.9 GASTRO-ESOPHAGEAL REFLUX DISEASE WITHOUT 01/01/2017 SATINDER LYNCH MD, Ot K80.10 CALCULUS OF GALLBLADDER W CHRONIC CHOLEC 01/01/2017 SATINDER LYNCH MD Ot M79.7 FIBROMYALGIA 01/01/2017 SATINDER LYNCH MD, Ot M81.0 AGE-RELATED OSTEOPOROSIS W/O CURRENT PAT 01/01/2017 SATINDER LYNCH MD, Ot Z79.899 OTHER SENIOR LIVING (CURRENT) DRUG THERAPY 01/02/2017 NOHEMI SALINAS Ot F41.9 ANXIETY DISORDER, UNSPECIFIED 01/02/2017 NOHEMI SALINAS Ot R06.02 SHORTNESS OF BREATH 01/02/2017 NOHEMI SALINAS Ot R10.84 GENERALIZED ABDOMINAL PAIN 01/02/2017 NOHEMI SALINAS Ot Z80.0 FAMILY HISTORY OF MALIGNANT NEOPLASM OF 01/02/2017 NOHEMI SALINAS Ot Z80.1 FAMILY HISTORY OF MALIG NEOPLASM OF TRAC 01/02/2017 NOHEMI SALINAS Ot Z80.3 FAMILY HISTORY OF MALIGNANT NEOPLASM OF 01/02/2017 NOHEMI SALINAS Ot Z87.19 PERSONAL HISTORY OF OTHER DISEASES OF 01/02/2017 NOHEMI SALINAS Ot Z90.49 ACQUIRED ABSENCE OF OTHER SPECIFIED PART 01/02/2017 NOHEMI SALINAS Ot Z90.89 ACQUIRED ABSENCE OF OTHER ORGANS Procedures Code Description [place] [address] ROUTINE VENIPUNCTURE 05/20/2012 80084 CBC 05/20/2012 30763 BLOOD CLOT FACTOR VIII TEST 05/21/2012 59341 PT/INR 05/21/2012 96885 ANDERSON VIPER VENOM DILUTED 05/21/2012 33704 PTT (THROMBOPLASTIN TIME, PARTIAL) 05/21/2012 05321 ROUTINE VENIPUNCTURE 06/01/2012 IRGROUP IRON GROUP (Iron,TIBC, Ferritin) 06/01/2012 96604 D-DIMER 06/01/2012 81483 FIBRINOGEN 06/01/2012 11170 VITAMIN D 25-HYDROXY (D2,D3, TOTAL) 06/01/2012 20377 FERRITIN 06/01/2012 42405 IRON SERUM 06/01/2012 51166 IRON BNDNG CAP 06/01/2012 48562 TSH 06/01/2012 29380 VON [place] FACTOR ANTIGEN 06/03/2012 21068 BONE DENSITY, DEXA 06/11/2012 Ernst Aguilar 06/18/2012 28744 XRAY CHEST 2 VIEW 08/09/2013 [id number] DIVISION OF FEMALE PERINEUM, EXTERNAL AP 11/07/2016 [id number] DELIVERY OF PRODUCTS OF CONCEPTION, EXTE 11/07/2016 Results Test Result Range Complete urinalysis with reflex to culture - 03/10/16 20:20 Urine color determination YELLOW NRG Urine clarity determination CLEAR NRG Urine pH measurement by test strip 6.5 5-9 Specific gravity of urine by test strip 1.010 1.016-1.022 Urine protein assay by test strip, semi-quantitative NEGATIVE NEGATIVE Urine glucose detection by automated test strip NEGATIVE NEGATIVE Erythrocytes detection in urine sediment by light microscopy NEGATIVE NEGATIVE Urine ketones detection by automated test strip NEGATIVE NEGATIVE Urine nitrite detection by test strip NEGATIVE NEGATIVE Urine total bilirubin detection by test strip NEGATIVE NEGATIVE Urine urobilinogen measurement by automated test strip (mass/volume) NORMAL NORMAL Urine leukocyte esterase detection by dipstick NEGATIVE NEGATIVE Automated urine sediment erythrocyte count by microscopy (number/high power field) NONE NRG Automated urine sediment leukocyte count by microscopy (number/high power field) NONE NRG Bacteria detection in urine sediment by light microscopy NONE NRG Squamous epithelial cells detection in urine sediment by light microscopy 0-2 NRG Crystals detection in urine sediment by light microscopy NONE NRG Casts detection in urine sediment by light microscopy NONE NRG Mucus detection in urine sediment by light microscopy NEGATIVE NRG Complete urinalysis with reflex to culture NO NRG Complete blood count (CBC) with automated white blood cell (WBC) differential - 03/10/16 20:30 Blood leukocytes automated count (number/volume) 9.4 10*3/uL 4.3-11.0 Blood erythrocytes automated count (number/volume) 4.98 10*6/uL 4.35-5.85 Venous blood hemoglobin measurement (mass/volume) 14.4 g/dL 11.5-16.0 Blood hematocrit (volume fraction) 42 % 35-52 Automated erythrocyte mean corpuscular volume 84 [foz_us] 80-99 Automated erythrocyte mean corpuscular hemoglobin (mass per erythrocyte) 29 pg 25-34 Automated erythrocyte mean corpuscular hemoglobin concentration measurement (mass/volume) 34 g/dL 32-36 Automated erythrocyte distribution width ratio 12.9 % 10.0- 14.5 Automated blood platelet count (count/volume) 245 10*3/uL 130-400 Automated blood platelet mean volume measurement 11.5 [foz_us] 7.4-10.4 Automated blood neutrophils/100 leukocytes 69 % 42-75 Automated blood lymphocytes/100 leukocytes 21 % 12-44 Blood monocytes/100 leukocytes 9 % 0-12 Automated blood eosinophils/100 leukocytes 1 % 0-10 Automated blood basophils/100 leukocytes 0 % 0-10 Blood neutrophils automated count (number/volume) 6.5 10*3 1.8-7.8 Blood lymphocytes automated count (number/volume) 1.9 10*3 1.0-4.0 Blood monocytes automated count (number/volume) 0.9 10*3 0.0- 1.0 Automated eosinophil count 0.1 10*3/uL 0.0-0.3 Automated blood basophil count (count/volume) 0.0 10*3/uL 0.0-0.1 Comprehensive metabolic panel - 03/10/16 20:30 Serum or plasma sodium measurement (moles/volume) 136 mmol/L 135-145 Serum or plasma potassium measurement (moles/volume) 3.7 mmol/L 3.6-5.0 Serum or plasma chloride measurement (moles/volume) 106 mmol/L 98-107 Carbon dioxide 18 mmol/L 21-32 Serum or plasma anion gap determination (moles/volume) 12 mmol/L 5-14 Serum or plasma urea nitrogen measurement (mass/volume) 13 mg/dL 7-18 Serum or plasma creatinine measurement (mass/volume) 0.95 mg/dL 0.60-1.30 Serum or plasma urea nitrogen/creatinine mass ratio 14 NRG Serum or plasma creatinine measurement with calculation of estimated glomerular filtration rate > NRG Serum or plasma glucose measurement (mass/volume) 94 mg/dL 70-105 Serum or plasma calcium measurement (mass/volume) 9.5 mg/dL 8.5-10.1 Serum or plasma total bilirubin measurement (mass/volume) 0.2 mg/dL 0.1-1.0 Serum or plasma alkaline phosphatase measurement (enzymatic activity/volume) 82 U/L 40-136 Serum or plasma aspartate aminotransferase measurement (enzymatic activity/volume) 17 U/L 5-34 Serum or plasma alanine aminotransferase measurement (enzymatic activity/volume) 18 U/L 0-55 Serum or plasma protein measurement (mass/volume) 7.6 g/dL 6.4-8.2 Serum or plasma albumin measurement (mass/volume) 4.7 g/dL 3.2-4.5 Serum or plasma choriogonadotropin measurement (units/volume) - 03/10/16 20:30 Serum or plasma choriogonadotropin measurement (units/volume) 5115 m[iU]/mL <5 Complete blood count (CBC) with automated white blood cell (WBC) differential - 05/13/16 15:50 Blood leukocytes automated count (number/volume) 9.3 10*3/uL 4.3-11.0 Blood erythrocytes automated count (number/volume) 4.88 10*6/uL 4.35-5.85 Venous blood hemoglobin measurement (mass/volume) 14.4 g/dL 11.5-16.0 Blood hematocrit (volume fraction) 41 % 35-52 Automated erythrocyte mean corpuscular volume 84 [foz_us] 80-99 Automated erythrocyte mean corpuscular hemoglobin (mass per erythrocyte) 30 pg 25-34 Automated erythrocyte mean corpuscular hemoglobin concentration measurement (mass/volume) 35 g/dL 32-36 Automated erythrocyte distribution width ratio 13.4 % 10.0- 14.5 Automated blood platelet count (count/volume) 193 10*3/uL 130-400 Automated blood platelet mean volume measurement 11.4 [foz_us] 7.4-10.4 Automated blood neutrophils/100 leukocytes 80 % 42-75 Automated blood lymphocytes/100 leukocytes 13 % 12-44 Blood monocytes/100 leukocytes 6 % 0-12 Automated blood eosinophils/100 leukocytes 1 % 0-10 Automated blood basophils/100 leukocytes 0 % 0-10 Blood neutrophils automated count (number/volume) 7.5 10*3 1.8-7.8 Blood lymphocytes automated count (number/volume) 1.2 10*3 1.0-4.0 Blood monocytes automated count (number/volume) 0.6 10*3 0.0- 1.0 Automated eosinophil count 0.1 10*3/uL 0.0-0.3 Automated blood basophil count (count/volume) 0.0 10*3/uL 0.0-0.1 Comprehensive metabolic panel - 05/13/16 15:50 Serum or plasma sodium measurement (moles/volume) 138 mmol/L 135-145 Serum or plasma potassium measurement (moles/volume) 3.8 mmol/L 3.6-5.0 Serum or plasma chloride measurement (moles/volume) 105 mmol/L 98-107 Carbon dioxide 20 mmol/L 21-32 Serum or plasma anion gap determination (moles/volume) 13 mmol/L 5-14 Serum or plasma urea nitrogen measurement (mass/volume) 6 mg/dL 7-18 Serum or plasma creatinine measurement (mass/volume) 0.68 mg/dL 0.60-1.30 Serum or plasma urea nitrogen/creatinine mass ratio 9 NRG Serum or plasma creatinine measurement with calculation of estimated glomerular filtration rate > NRG Serum or plasma glucose measurement (mass/volume) 84 mg/dL 70-105 Serum or plasma calcium measurement (mass/volume) 9.5 mg/dL 8.5-10.1 Serum or plasma total bilirubin measurement (mass/volume) 0.5 mg/dL 0.1-1.0 Serum or plasma alkaline phosphatase measurement (enzymatic activity/volume) 52 U/L 40-136 Serum or plasma aspartate aminotransferase measurement (enzymatic activity/volume) 25 U/L 5-34 Serum or plasma alanine aminotransferase measurement (enzymatic activity/volume) 33 U/L 0-55 Serum or plasma protein measurement (mass/volume) 7.3 g/dL 6.4-8.2 Serum or plasma albumin measurement (mass/volume) 4.2 g/dL 3.2-4.5 Complete urinalysis with reflex to culture - 07/27/16 18:10 Urine color determination YELLOW NRG Urine clarity determination CLEAR NRG Urine pH measurement by test strip 7 5-9 Specific gravity of urine by test strip 1.015 1.016-1.022 Urine protein assay by test strip, semi-quantitative NEGATIVE NEGATIVE Urine glucose detection by automated test strip NEGATIVE NEGATIVE Erythrocytes detection in urine sediment by light microscopy NEGATIVE NEGATIVE Urine ketones detection by automated test strip NEGATIVE NEGATIVE Urine nitrite detection by test strip NEGATIVE NEGATIVE Urine total bilirubin detection by test strip NEGATIVE NEGATIVE Urine urobilinogen measurement by automated test strip (mass/volume) NORMAL NORMAL Urine leukocyte esterase detection by dipstick 1+ NEGATIVE Automated urine sediment erythrocyte count by microscopy (number/high power field) NONE NRG Automated urine sediment leukocyte count by microscopy (number/high power field) [HPF] NRG Bacteria detection in urine sediment by light microscopy NONE NRG Squamous epithelial cells detection in urine sediment by light microscopy 2-5 NRG Crystals detection in urine sediment by light microscopy PRESENT NRG Casts detection in urine sediment by light microscopy NONE NRG Mucus detection in urine sediment by light microscopy NEGATIVE NRG Complete urinalysis with reflex to culture NO NRG Amorphous sediment detection in urine sediment by light microscopy FEW MARCELA URATES NRG Bacterial urine culture - 07/27/16 18:10 Bacterial urine culture [id number] NRG COLONY COUNT <10,000 NRG Complete blood count (CBC) with automated white blood cell (WBC) differential - 07/27/16 19:24 Blood leukocytes automated count (number/volume) 16.4 10*3/uL 4.3-11.0 Blood erythrocytes automated count (number/volume) 4.68 10*6/uL 4.35-5.85 Venous blood hemoglobin measurement (mass/volume) 14.0 g/dL 11.5-16.0 Blood hematocrit (volume fraction) 41 % 35-52 Automated erythrocyte mean corpuscular volume 89 [foz_us] 80-99 Automated erythrocyte mean corpuscular hemoglobin (mass per erythrocyte) 30 pg 25-34 Automated erythrocyte mean corpuscular hemoglobin concentration measurement (mass/volume) 34 g/dL 32-36 Automated erythrocyte distribution width ratio 12.8 % 10.0- 14.5 Automated blood platelet count (count/volume) 182 10*3/uL 130-400 Automated blood platelet mean volume measurement 11.4 [[facility]] 7.4-10.4 Automated blood neutrophils/100 leukocytes 88 % 42-75 Automated blood lymphocytes/100 leukocytes 8 % 12-44 Blood monocytes/100 leukocytes 5 % 0-12 Automated blood eosinophils/100 leukocytes 0 % 0-10 Automated blood basophils/100 leukocytes 0 % 0-10 Blood neutrophils automated count (number/volume) 14.4 10*3 1.8-7.8 Blood lymphocytes automated count (number/volume) 1.2 10*3 1.0-4.0 Blood monocytes automated count (number/volume) 0.8 10*3 0.0- 1.0 Automated eosinophil count 0.0 10*3/uL 0.0-0.3 Automated blood basophil count (count/volume) 0.0 10*3/uL 0.0-0.1 Blood manual differential performed detection - 07/27/16 19:24 Blood monocytes/100 leukocytes 2 % NRG Manual blood segmented neutrophils/100 leukocytes 71 % NRG Blood band neutrophils/100 leukocytes 18 % NRG Manual blood lymphocytes/100 leukocytes 8 % NRG Manual eosinophils/100 leukocytes in nose 0 % NRG Manual blood basophils/100 leukocytes 0 % NRG Blood erythrocyte morphology finding identification NORMAL NRG Manual blood metamyelocytes/100 leukocytes 1 % NRG Complete blood count (CBC) with automated white blood cell (WBC) differential - 11/06/16 19:40 Blood leukocytes automated count (number/volume) 11.7 10*3/uL 4.3-11.0 Blood erythrocytes automated count (number/volume) 4.19 10*6/uL 4.35-5.85 Venous blood hemoglobin measurement (mass/volume) 11.7 g/dL 11.5-16.0 Blood hematocrit (volume fraction) 35 % 35-52 Automated erythrocyte mean corpuscular volume 83 [fo_us] 80-99 Automated erythrocyte mean corpuscular hemoglobin (mass per erythrocyte) 28 pg 25-34 Automated erythrocyte mean corpuscular hemoglobin concentration measurement (mass/volume) 34 g/dL 32-36 Automated erythrocyte distribution width ratio 12.1 % 10.0- 14.5 Automated blood platelet count (count/volume) 132 10*3/uL 130-400 Automated blood platelet mean volume measurement 13.5 [foz_us] 7.4-10.4 Automated blood neutrophils/100 leukocytes 69 % 42-75 Automated blood lymphocytes/100 leukocytes 21 % 12-44 Blood monocytes/100 leukocytes 10 % 0-12 Automated blood eosinophils/100 leukocytes 1 % 0-10 Automated blood basophils/100 leukocytes 0 % 0-10 Blood neutrophils automated count (number/volume) 8.1 10*3 1.8-7.8 Blood lymphocytes automated count (number/volume) 2.4 10*3 1.0-4.0 Blood monocytes automated count (number/volume) 1.1 10*3 0.0- 1.0 Automated eosinophil count 0.1 10*3/uL 0.0-0.3 Automated blood basophil count (count/volume) 0.0 10*3/uL 0.0-0.1 Blood type T Indirect antibody screen panel - 11/06/16 19:40 ABO+Rh group OP NRG Transfusion band number [id number] Blood group antibody screen NEGATIVE NRG Complete blood count (CBC) with automated white blood cell (WBC) differential - 11/08/16 05:58 Blood leukocytes automated count (number/volume) 10.6 10*3/uL 4.3-11.0 Blood erythrocytes automated count (number/volume) 3.57 10*6/uL 4.35-5.85 Venous blood hemoglobin measurement (mass/volume) 9.8 g/dL 11.5-16.0 Blood hematocrit (volume fraction) 30 % 35-52 Automated erythrocyte mean corpuscular volume 85 [foz_us] 80-99 Automated erythrocyte mean corpuscular hemoglobin (mass per erythrocyte) 28 pg 25-34 Automated erythrocyte mean corpuscular hemoglobin concentration measurement (mass/volume) 32 g/dL 32-36 Automated erythrocyte distribution width ratio 12.2 % 10.0- 14.5 Automated blood platelet count (count/volume) 100 10*3/uL 130-400 Automated blood platelet mean volume measurement 13.0 [foz_us] 7.4-10.4 Automated blood neutrophils/100 leukocytes 73 % 42-75 Automated blood lymphocytes/100 leukocytes 18 % 12-44 Blood monocytes/100 leukocytes 9 % 0-12 Automated blood eosinophils/100 leukocytes 0 % 0-10 Automated blood basophils/100 leukocytes 0 % 0-10 Blood neutrophils automated count (number/volume) 7.8 10*3 1.8-7.8 Blood lymphocytes automated count (number/volume) 1.9 10*3 1.0-4.0 Blood monocytes automated count (number/volume) 0.9 10*3 0.0- 1.0 Automated eosinophil count 0.0 10*3/uL 0.0-0.3 Automated blood basophil count (count/volume) 0.0 10*3/uL 0.0-0.1 CMP - 12/12/16 10:28 Glucose, Serum 92 mg/dL 65-99 BUN 13 mg/dL 6-20 Creatinine, Serum 0.87 mg/dL 0.57-1.00 eGFR If NonAfricn Am 94 mL/min/1.73 >59 eGFR If Africn Am 109 mL/min/1.73 >59 BUN/Creatinine Ratio 15 9-23 Sodium, Serum 141 mmol/L 134-144 Potassium, Serum 4.0 mmol/L 3.5-5.2 Chloride, Serum 101 mmol/L 96-106 Carbon Dioxide, Total 23 mmol/L 18-29 Calcium, Serum 9.4 mg/dL 8.7-10.2 Protein, Total, Serum 7.1 g/dL 6.0-8.5 Albumin, Serum 4.4 g/dL 3.5-5.5 Globulin, Total 2.7 g/dL 1.5-4.5 A/G Ratio 1.6 1.2-2.2 Bilirubin, Total 0.2 mg/dL 0.0-1.2 Alkaline Phosphatase, S 102 IU/L 39-117 AST (SGOT) 19 IU/L 0-40 ALT (SGPT) 22 IU/L 0-32 Complete blood count (CBC) with automated white blood cell (WBC) differential - 12/29/16 13:38 Blood leukocytes automated count (number/volume) 4.8 10*3/uL 4.3-11.0 Blood erythrocytes automated count (number/volume) 4.68 10*6/uL 4.35-5.85 Venous blood hemoglobin measurement (mass/volume) 12.8 g/dL 11.5-16.0 Blood hematocrit (volume fraction) 39 % 35-52 Automated erythrocyte mean corpuscular volume 82 [foz_us] 80-99 Automated erythrocyte mean corpuscular hemoglobin (mass per erythrocyte) 27 pg 25-34 Automated erythrocyte mean corpuscular hemoglobin concentration measurement (mass/volume) 33 g/dL 32-36 Automated erythrocyte distribution width ratio 13.5 % 10.0- 14.5 Automated blood platelet count (count/volume) 201 10*3/uL 130-400 Automated blood platelet mean volume measurement 11.5 [foz_us] 7.4-10.4 Automated blood neutrophils/100 leukocytes 50 % 42-75 Automated blood lymphocytes/100 leukocytes 42 % 12-44 Blood monocytes/100 leukocytes 7 % 0-12 Automated blood eosinophils/100 leukocytes 1 % 0-10 Automated blood basophils/100 leukocytes 0 % 0-10 Blood neutrophils automated count (number/volume) 2.4 10*3 1.8-7.8 Blood lymphocytes automated count (number/volume) 2.0 10*3 1.0-4.0 Blood monocytes automated count (number/volume) 0.3 10*3 0.0- 1.0 Automated eosinophil count 0.1 10*3/uL 0.0-0.3 Automated blood basophil count (count/volume) 0.0 10*3/uL 0.0-0.1 Urine beta human chorionic gonadotropin (hCG) measurement - 12/29/16 13:38 Urine beta human chorionic gonadotropin (hCG) measurement NEGATIVE NEGATIVE Methicillin resistant Staphylococcus aureus (MRSA) screening culture - 12/29/16 13:38 Methicillin resistant Staphylococcus aureus (MRSA) screening culture NEG NRG Complete blood count (CBC) with automated white blood cell (WBC) differential - 01/01/17 22:40 Blood leukocytes automated count (number/volume) 16.1 10*3/uL 4.3-11.0 Blood erythrocytes automated count (number/volume) 4.87 10*6/uL 4.35-5.85 Venous blood hemoglobin measurement (mass/volume) 13.2 g/dL 11.5-16.0 Blood hematocrit (volume fraction) 40 % 35-52 Automated erythrocyte mean corpuscular volume 82 [foz_us] 80-99 Automated erythrocyte mean corpuscular hemoglobin (mass per erythrocyte) 27 pg 25-34 Automated erythrocyte mean corpuscular hemoglobin concentration measurement (mass/volume) 33 g/dL 32-36 Automated erythrocyte distribution width ratio 13.7 % 10.0- 14.5 Automated blood platelet count (count/volume) 197 10*3/uL 130-400 Automated blood platelet mean volume measurement 11.6 [foz_us] 7.4-10.4 Automated blood neutrophils/100 leukocytes 92 % 42-75 Automated blood lymphocytes/100 leukocytes 3 % 12-44 Blood monocytes/100 leukocytes 5 % 0-12 Automated blood eosinophils/100 leukocytes 0 % 0-10 Automated blood basophils/100 leukocytes 0 % 0-10 Blood neutrophils automated count (number/volume) 14.8 10*3 1.8-7.8 Blood lymphocytes automated count (number/volume) 0.4 10*3 1.0-4.0 Blood monocytes automated count (number/volume) 0.9 10*3 0.0- 1.0 Automated eosinophil count 0.0 10*3/uL 0.0-0.3 Automated blood basophil count (count/volume) 0.0 10*3/uL 0.0-0.1 Serum or plasma choriogonadotropin ( test) detection - 01/01/17 22:40 Serum or plasma choriogonadotropin ( test) detection NEGATIVE NEGATIVE Blood manual differential performed detection - 01/01/17 22:40 Blood monocytes/100 leukocytes 2 % NRG Manual blood segmented neutrophils/100 leukocytes 70 % NRG Blood band neutrophils/100 leukocytes 19 % NRG Manual blood lymphocytes/100 leukocytes 9 % NRG Manual eosinophils/100 leukocytes in nose 0 % NRG Manual blood basophils/100 leukocytes 0 % NRG Blood erythrocyte morphology finding identification NORMAL NR Comprehensive metabolic panel - 01/01/17 22:40 Serum or plasma sodium measurement (moles/volume) 138 mmol/L 135-145 Serum or plasma potassium measurement (moles/volume) 3.7 mmol/L 3.6-5.0 Serum or plasma chloride measurement (moles/volume) 106 mmol/L 98-107 Carbon dioxide 23 mmol/L 21-32 Serum or plasma anion gap determination (moles/volume) 9 mmol/L 5-14 Serum or plasma urea nitrogen measurement (mass/volume) 9 mg/dL 7-18 Serum or plasma creatinine measurement (mass/volume) 0.84 mg/dL 0.60-1.30 Serum or plasma urea nitrogen/creatinine mass ratio 11 NRG Serum or plasma creatinine measurement with calculation of estimated glomerular filtration rate > NRG Serum or plasma glucose measurement (mass/volume) 166 mg/dL 70-105 Serum or plasma calcium measurement (mass/volume) 8.8 mg/dL 8.5-10.1 Serum or plasma total bilirubin measurement (mass/volume) 0.8 mg/dL 0.1-1.0 Serum or plasma alkaline phosphatase measurement (enzymatic activity/volume) 77 U/L 40-136 Serum or plasma aspartate aminotransferase measurement (enzymatic activity/volume) 48 U/L 5-34 Serum or plasma alanine aminotransferase measurement (enzymatic activity/volume) 76 U/L 0-55 Serum or plasma protein measurement (mass/volume) 7.3 g/dL 6.4-8.2 Serum or plasma albumin measurement (mass/volume) 4.4 g/dL 3.2-4.5 Lipase - 01/01/17 22:40 Lipase 13 U/L 8-78 Complete urinalysis with reflex to culture - 01/01/17 23:14 Urine color determination YELLOW NRG Urine clarity determination CLEAR NRG Urine pH measurement by test strip 6 5-9 Specific gravity of urine by test strip 1.020 1.016-1.022 Urine protein assay by test strip, semi-quantitative NEGATIVE NEGATIVE Urine glucose detection by automated test strip NEGATIVE NEGATIVE Erythrocytes detection in urine sediment by light microscopy 2+ NEGATIVE Urine ketones detection by automated test strip 2+ NEGATIVE Urine nitrite detection by test strip NEGATIVE NEGATIVE Urine total bilirubin detection by test strip NEGATIVE NEGATIVE Urine urobilinogen measurement by automated test strip (mass/volume) NORMAL NORMAL Urine leukocyte esterase detection by dipstick 1+ NEGATIVE Automated urine sediment erythrocyte count by microscopy (number/high power field) [HPF] NRG Automated urine sediment leukocyte count by microscopy (number/high power field) [HPF] NRG Bacteria detection in urine sediment by light microscopy TRACE NRG Squamous epithelial cells detection in urine sediment by light microscopy 5-10 NRG Crystals detection in urine sediment by light microscopy NONE NRG Casts detection in urine sediment by light microscopy NONE NRG Mucus detection in urine sediment by light microscopy SMALL NRG Complete urinalysis with reflex to culture NO NRG Yeast detection in urine sediment by light microscopy FEW NRG CBC - 10/29/17 13:37 WHITE BLOOD CELL COUNT 5.6 Thousand/uL 3.8-10.8 RED BLOOD CELL COUNT 4.69 Million/uL 3.80-5.10 HEMOGLOBIN 13.4 g/dL 11.7-15.5 HEMATOCRIT 40.4 % 35.0-45.0 MCV 86.1 fL 80.0-100.0 MCH 28.6 pg 27.0-33.0 MCHC 33.2 g/dL 32.0-36.0 RDW 12.5 % 11.0-15.0 PLATELET COUNT 204 Thousand/uL 140-400 MPV 12.0 fL 7.5-12.5 ABSOLUTE NEUTROPHILS 2934 cells/uL 7533-1361 ABSOLUTE LYMPHOCYTES 2089 cells/uL 850-3900 ABSOLUTE MONOCYTES 437 cells/uL 200-950 ABSOLUTE EOSINOPHILS 90 cells/uL 15-500 ABSOLUTE BASOPHILS 50 cells/uL 0-200 NEUTROPHILS 52.4 % NRG LYMPHOCYTES 37.3 % NRG MONOCYTES 7.8 % NRG EOSINOPHILS 1.6 % NRG BASOPHILS 0.9 % NRG CULTURE, URINE - 01/11/18 16:25 CULTURE, URINE, ROUTINE SEE NOTE NRG TSH - 05/28/18 14:26 TSH 1.44 mIU/L NRG VITAMIN D, 25-H - 05/28/18 14:26 VITAMIN D,25-OH,TOTAL,IA 29 ng/mL 30-100 Encounters ACCT No. Visit Date/Time Discharge Status Pt. Type Provider Facility Loc./Unit Complaint [id number] 06/09/2014 14:31:00 06/09/2014 23:59:59 CLS Outpatient HANNAH MCCOLLUM APRN [id number] 01/18/2014 14:29:00 01/18/2014 23:59:59 CLS Outpatient DIANA HILL APRN [id number] 08/09/2013 09:09:00 08/09/2013 23:59:59 CLS Outpatient TABBY AMADO DO [id number] 06/01/2012 14:05:00 06/01/2012 23:59:59 CLS Outpatient HUNTER HORTON MD [id number] 05/20/2012 15:15:00 05/20/2012 23:59:59 CLS Outpatient [id number] 08/16/2018 08:40:00 08/16/2018 23:59:59 CLS Outpatient KAR LIZ [facility] [id number] 05/28/2018 13:20:00 Document Registration [id number] 01/11/2018 15:05:00 Document Registration [id number] 10/29/2017 13:00:00 Document Registration [id number] 12/12/2016 09:40:00 Document Registration [id number] 01/01/2017 22:02:00 01/02/2017 01:25:00 DIS Emergency NOHEMI SALINAS [facility] ER PAIN AFTER SURGERY [id number] 01/01/2017 10:34:00 01/01/2017 17:50:00 DIS Outpatient SATINDER LYNCH MD [facility] SDC GALLSTONES [id number] 12/29/2016 13:17:00 12/29/2016 13:45:00 DIS Outpatient SATINDER LYNCH MD [facility] PREOP LAP MC [id number] 12/17/2016 08:49:00 12/17/2016 23:59:59 CLS Outpatient ISAAK STEPHEN MD [facility] RAD RUQ PAIN R10.11 [id number] 12/12/2016 13:20:00 12/12/2016 23:59:59 CLS Preadmit ISAAK STEPHEN MD [facility] CARD RUQ PAIN R10.11 [id number] 11/06/2016 19:02:00 11/09/2016 11:30:00 DIS Inpatient BRUCE ARELLANO DO S [facility] LDRP INDUCTION [id number] 08/22/2016 12:36:00 08/22/2016 23:59:59 CLS Outpatient STEFANIE PABON MD [facility] RAD Z36 [id number] 08/08/2016 12:51:00 08/08/2016 23:59:59 CLS Outpatient STEFANIE PABON MD [facility] RAD Z36 [id number] 07/28/2016 00:12:00 07/28/2016 23:59:59 CLS Preadmit ERNST CHAPMAN [facility] ONC [id number] 07/27/2016 17:55:00 07/27/2016 19:59:00 DIS Outpatient CRISTOBAL MD, HORTENSIA Aponte [facility] WSo STOMACH AND BACK PAIN [id number] 04/28/2016 13:33:00 07/27/2016 00:01:00 DIS Outpatient ERNST CHAPMAN N [facility] ONC [id number] 06/27/2016 14:56:00 06/27/2016 23:59:59 CLS Outpatient PEPPER MOTA, STEFANIE Ravi [facility] RAD SURVEY [id number] 05/13/2016 16:52:00 05/13/2016 18:58:00 DIS Emergency IDALIA MOTA, JARRETT Paris [facility] ER HEADACHE [id number] 04/10/2016 15:52:00 04/10/2016 23:59:59 CLS Outpatient ZAFAR MOTA, ISAAK Ravi [facility] RAD DATING [id number] 03/10/2016 19:08:00 03/10/2016 22:31:00 DIS Emergency KEITH SOLER DO [facility] ER ABD PAIN [id number] 07/22/2012 09:48:00 09/22/2012 00:01:00 DIS Outpatient [id number] 08/05/2012 20:01:00 08/05/2012 23:36:00 DIS Emergency AMANDA DOSS MD [facility] ER SEVERE MENSTRUAL CRAMPING/BLEED [id number] 06/13/2014 14:10:00 Document Registration [id number] 06/13/2014 14:10:00 Document Registration
[2018-10-16] MEDS ORDERED: NS IV 1000 ML 1,000 ML IV ONE ×2 (13:23→14:17)
[2018-10-16] MEDS ORDERED: ACETAMINOPHEN 500 MG TAB (TYLENOL) PO STA (13:23)
[2018-10-16] MEDS ORDERED: FAMOTIDINE 20MG/2ML IV (PEPCID) IV STA (13:23)
[2018-10-16 13:30] LABS: BASOPHILS % (AUTO) 0 % (0-10); EOSINOPHILS % (AUTO) 1 % (0-10); HEMATOCRIT 43 % (35-52); LYMPHOCYTES # (AUTO) 1.4 X 10^3 (1.0-4.0); LYMPHOCYTES % (AUTO) 18 % (12-44); MEAN CORPUSCULAR HEMOGLOBIN 29 PG (25-34); MEAN CORPUSCULAR HGB CONC 35 G/DL (32-36); MEAN CORPUSCULAR VOLUME 83 FL (80-99); MEAN PLATELET VOLUME 11.3 FL (7.4-10.4); MONOCYTES # (AUTO) 0.5 X 10^3 (0.0-1.0); MONOCYTES % (AUTO) 7 % (0-12); NEUTROPHILS # (AUTO) 5.9 X 10^3 (1.8-7.8); NEUTROPHILS % (AUTO) 75 % (42-75); PLATELET COUNT 189 10^3/uL (130-400); RED CELL DISTRIBUTION WIDTH 13.4 % (10.0-14.5); WHITE BLOOD COUNT 7.9 10^3/uL (4.3-11.0)
[2018-10-16] MEDS ORDERED: ONDANSETRON 4 MG/2 ML (SDV) Z0FRAN IVP ONE (13:30)
[2018-10-16 13:45] LABS: ALANINE AMINOTRANSFERASE 24 U/L (0-55); ALBUMIN 4.6 GM/DL (3.2-4.5); ALKALINE PHOSPHATASE 66 U/L (40-136); BILIRUBIN,TOTAL 0.5 MG/DL (0.1-1.0); BUN/CREATININE RATIO 8; CALCIUM 9.9 MG/DL (8.5-10.1); CARBON DIOXIDE 21 MMOL/L (21-32); CHLORIDE 104 MMOL/L (98-107); CREATININE SERUM 0.75 MG/DL (0.60-1.30); GFR ESTIMATED > 60; GLUCOSE 99 MG/DL (70-105); LIPASE 19 U/L (8-78); POTASSIUM 3.8 MMOL/L (3.6-5.0); SODIUM 136 MMOL/L (135-145); TOTAL PROTEIN 8.2 GM/DL (6.4-8.2)
[2018-10-16 13:52] LABS: BILIRUBIN,URINE NEGATIVE (NEGATIVE); CLARITY,URINE VERY CLOUDY; COLOR,URINE YELLOW; GLUCOSE, URINE (UA) NEGATIVE (NEGATIVE); KETONES,URINE NEGATIVE (NEGATIVE); LEUKOCYTE ESTERASE ,URINE 3+ (NEGATIVE); NITRITE,URINE NEGATIVE (NEGATIVE); PH,URINE 6.5 (5-9); PROTEIN,URINE 2+ (NEGATIVE); UROBILINOGEN,URINE NORMAL (NORMAL)
--- NOTE | 2018-10-16 13:54 | ED GU-Female ---
General Chief Complaint: Head/Cervical Problems Stated Complaint: HEADACHE,VOMITING,10 WKS Nursing Triage Note: Pt c/o headache and vomiting since . Pt reports being and having same symptoms with last . Pt reports taking 4mg zofran at 1100. Nursing Sepsis Screen: No Definite Risk Source: patient, spouse Exam Limitations: no limitations History of Present Illness Date Seen by Provider: Oct 16, 2018 Time Seen by Provider: 13:54 Initial Comments 23-year-old female patient presents to the emergency department with complaints of headache, nausea, vomiting beginning on . Patient states she is approximately 10 weeks . She does report having similar symptoms with her last . She did take 4 mg of Zofran at 1100 without improvement in symptoms. Denies taking Tylenol. Timing/Duration: getting worse, other (2 day onset) Severity/Quality: moderate Activities at Onset: none Sexual [place] History: less than 2 months ago, single partner Modifying Factors: Worsens With Eating, Worsens With Other (worse with drinking) Allergies and Home Medications Allergies Coded Allergies: Penicillins (Verified Allergy, Mild, 08/05/12) ibandronate sodium (Verified Allergy, Unknown, 05/14/16) Home Medications Cefdinir 300 Mg Capsule, 300 MG PO BID Prescribed by: NOHEMI NAVARRO on 10/16/18 142 Ergocalciferol (Vitamin D2) 400 Unit Tablet, 400 UNIT PO DAILY, (Reported) Famotidine 20 Mg Tablet, 20 MG PO BID PRN for NAUSEA/VOMITING Prescribed by: NOHEMI NAVARRO on 10/16/18 142 Ferrous Sulfate 325 Mg Tablet, 325 MG PO DAILY, (Reported) Ibuprofen 600 Mg Tablet, 600 MG PO Q6H PRN for PAIN, (Reported) Omeprazole Magnesium 20 Mg Tablet.dr, 20 MG PO BID, (Reported) Ondansetron 4 Mg Tab.rapdis, 4 MG PO Q6H PRN for NAUSEA/VOMITING Prescribed by: NOHEMI NAVARRO on 10/16/18 142 Tramadol HCl 50 Mg Tablet, 50-100 MG PO Q4H Prescribed by: SATINDER LYNCH on 01/01/17 1437 Patient Home Medication List Home Medication List Reviewed: Yes Review of Systems Review of Systems Constitutional: No chills, No diaphoresis, No dizziness, No fever, No malaise, No weakness EENTM: no symptoms reported Respiratory: no symptoms reported Cardiovascular: no symptoms reported Gastrointestinal: No abdominal pain, No constipation, No diarrhea, No hematemesis, No jaundice; loss of appetite; No melena; nausea, vomiting Genitourinary: denies burning, denies discharge, denies dysuria, denies frequency, denies flank pain, denies hematuria, denies pain, denies other (denies vaginal bleeding) : Yes Musculoskeletal: No back pain Skin: no symptoms reported Psychiatric/Neurological: Headache; Denies Numbness, Denies Paresthesia, Denies Tingling All Other Systemes Reviewed Negative Unless Noted: Yes (Negative excepted noted.) Past [id number]-Xlnvsv Hx Past Med/Social Hx: Reviewed Nursing Past Med/Soc Hx Patient Social History Alcohol Use: Denies Use Recreational Drug Use: No 2nd Hand Smoke Exposure: No Recent Foreign Travel: No Contact w/Someone Who Travel: No Recent Infectious Disease Expo: No Recent Hopitalizations: No (DAY SURG -01/01/17) Physical Abuse: No Sexual Abuse: No Mistreated: No Immunizations Up To Date Date of Influenza Vaccine: Nov 21, 2016 Seasonal Allergies Seasonal Allergies: No Past Medical History Surgeries: Yes (BILAT INGUINAL HERNIAS, TUBES IN EARS) Adenoidectomy, Gallbladder, Tonsillectomy Respiratory: No Cardiac: No Neurological: No : Yes Hx : 2 Hx Para: 1 Hx Total # of Abortions (Sp): 0 Reproductive Disorders: Yes Female Reproductive Disorders: Menstrual Problems Genitourinary: No Gastrointestinal: Yes Gall Bladder Disease Musculoskeletal: No Endocrine: No HEENT: Yes (WEARS GLASSES) Cancer: No Psychosocial: Yes Anxiety Integumentary: No 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 0.0oz. 59.912790in; 22.1 BMI Method:Stated General Appearance: WD/WN, no apparent distress HEENT: PERRL/EOMI, pharynx normal Neck: supple, normal inspection Cardiovascular: normal peripheral pulses, regular rate, rhythm, no edema, no gallop, no murmur Respiratory: lungs clear, normal breath sounds, no respiratory distress, no accessory muscle use Gastrointestinal: normal bowel sounds, non tender, soft, no organomegaly; No distended Back: normal inspection, no CVA tenderness Extremities: no pedal edema, no calf tenderness, normal capillary refill Neurologic/Psychiatric: alert, normal mood/affect, oriented x 3 Skin: normal color, warm/dry FHT 157 Progress/Results/Core Measures Suspected Sepsis Recent Fever Within 48 Hours: No Infection Criteria Present: None New/Unexplained Altered Menta: No Sepsis Screen: No Definite Risk SIRS Temperature:98.5 Pulse: 71 Respiratory Rate: 15 Laboratory Tests 10/16/18 13:10: White Blood Count 7.9 Blood Pressure 109 /72 Mean: 84 Laboratory Tests 10/16/18 13:10: Creatinine 0.75, Platelet Count 189, Total Bilirubin 0.5 Results/Orders Lab Results Laboratory Tests Test 10/16/18 13:10 10/16/18 13:34 Range/Units White Blood Count 7.9 4.3-11.0 10^3/uL Red Blood Count 5.18 4.35-5.85 10^6/uL Hemoglobin 15.0 11.5-16.0 G/DL Hematocrit 43 35-52 % Mean Corpuscular Volume 83 80-99 FL Mean Corpuscular Hemoglobin 29 25-34 PG Mean Corpuscular Hemoglobin Concent 35 32-36 G/DL Red Cell Distribution Width 13.4 10.0-14.5 % Platelet Count 189 130-400 10^3/uL Mean Platelet Volume 11.3 H 7.4-10.4 FL Neutrophils (%) (Auto) 75 42-75 % Lymphocytes (%) (Auto) 18 12-44 % Monocytes (%) (Auto) 7 0-12 % Eosinophils (%) (Auto) 1 0-10 % Basophils (%) (Auto) 0 0-10 % Neutrophils # (Auto) 5.9 1.8-7.8 X 10^3 Lymphocytes # (Auto) 1.4 1.0-4.0 X 10^3 Monocytes # (Auto) 0.5 0.0-1.0 X 10^3 Eosinophils # (Auto) 0.0 0.0-0.3 10^3/uL Basophils # (Auto) 0.0 0.0-0.1 10^3/uL Sodium Level 136 135-145 MMOL/L Potassium Level 3.8 3.6-5.0 MMOL/L Chloride Level 104 98-107 MMOL/L Carbon Dioxide Level 21 21-32 MMOL/L Anion Gap 11 5-14 MMOL/L Blood Urea Nitrogen 6 L 7-18 MG/DL Creatinine 0.75 0.60-1.30 MG/DL Estimat Glomerular Filtration Rate > 60 BUN/Creatinine Ratio 8 Glucose Level 99 70-105 MG/DL Calcium Level 9.9 8.5-10.1 MG/DL Corrected Calcium 8.5-10.1 MG/DL Total Bilirubin 0.5 0.1-1.0 MG/DL Aspartate Amino Transf (AST/SGOT) 18 5-34 U/L Alanine Aminotransferase (ALT/SGPT) 24 0-55 U/L Alkaline Phosphatase 66 40-136 U/L C-Reactive Protein High Sensitivity 0.22 0.00-0.50 MG/DL Total Protein 8.2 6.4-8.2 GM/DL Albumin 4.6 H 3.2-4.5 GM/DL Lipase 19 8-78 U/L Human Chorionic Gonadotropin, Quant [id number] H <5 MIU/ML Urine Color YELLOW Urine Clarity VERY CLOUDY H Urine pH 6.5 5-9 Urine Specific [place] 1.015 L 1.016-1.022 Urine Protein 2+ H NEGATIVE Urine Glucose (UA) NEGATIVE NEGATIVE Urine Ketones NEGATIVE NEGATIVE Urine Nitrite NEGATIVE NEGATIVE Urine Bilirubin NEGATIVE NEGATIVE Urine Urobilinogen NORMAL NORMAL MG/DL Urine Leukocyte Esterase 3+ H NEGATIVE Urine RBC (Auto) 1+ H NEGATIVE Urine RBC 2-5 H /HPF Urine WBC 50-100 H /HPF Urine Squamous Epithelial Cells 10-25 H /HPF Urine Crystals NONE /LPF Urine Bacteria LARGE H /HPF Urine Casts NONE /LPF Urine Mucus NEGATIVE /LPF Urine Culture Indicated YES My Orders Orders - NOHEMI NAVARRO Ondansetron Injection (Zofran Injectio (10/16/18 13:30) Famotidine Injection (Pepcid Injection) (10/16/18 13:23) Ed Iv/Invasive Line Start (10/16/18 13:23) Ns Iv 1000 Ml (Sodium Chloride 0.9%) (10/16/18 13:23) Ed Iv/Invasive Line Start (10/16/18 13:23) Heart Tones (10/16/18 13:23) Cbc With Automated Diff (10/16/18 13:23) Comprehensive Metabolic Panel (10/16/18 13:23) Hs C Reactive Protein (10/16/18 13:23) Hcg,Quantitative (10/16/18 13:23) Lipase (10/16/18 13:23) Ua Culture If Indicated (10/16/18 13:23) Acetaminophen Tablet (Tylenol Tablet) (10/16/18 13:23) Urine Culture (10/16/18 13:34) Ns Iv 1000 Ml (Sodium Chloride 0.9%) (10/16/18 14:17) Ceftriaxone For Iv Use (Rocephin For I (10/16/18 14:30) Medications Given in ED Current Medications Medications Dose Ordered Sig/Kraig Route Start Time Stop Time Status Last Admin Dose Admin Ceftriaxone Sodium 1000 mg/ Sterile Water 10 ml @ 200 mls/hr ONCE ONCE IV 10/16/18 14:30 10/16/18 14:32 DC 10/16/18 14:27 200 MLS/HR Ondansetron HCl 4 mg ONCE ONCE IVP 10/16/18 13:30 10/16/18 13:31 DC 10/16/18 13:35 4 MG Sodium Chloride 1,000 ml @ 0 mls/hr Q0M ONCE IV 10/16/18 13:23 10/16/18 13:25 DC 10/16/18 13:36 1,000 MLS/HR Sodium Chloride 1,000 ml @ 0 mls/hr Q0M ONCE IV 10/16/18 14:17 10/16/18 14:18 DC 10/16/18 14:27 1,000 MLS/HR Vital Signs/I&O 10/16/18 10/16/18 13:03 15:22 Temp 98.5 98.5 Pulse 71 86 Resp 15 15 B/P (MAP) 109/72 (84) 105/71 (82) Pulse Ox 98 99 O2 Delivery Room Air Room Air Capillary Refill : Less Than 3 Seconds Blood Pressure Mean: 84 Departure Communication (Admissions) Patient seen and evaluated. Labs and heart tones obtained. Patient was given 2 L of normal saline, 4 mg of Zofran, 20 mg Pepcid, 1 g Tylenol, and 1 g of Rocephin with improvement in symptoms. Plan for discharge to home with follow-up as an outpatient with Dr. Fierro as previously scheduled. Patient to return to the emergency department for worsened symptoms or any other concerns. Patient case discussed with Raymond De Souza MD, he agrees with the plan of care. Impression Primary Impression: Urinary tract infection Qualified Codes: N30.00 - Acute cystitis without hematuria Additional Impressions: Volume depletion 10 weeks gestation of Disposition: HOME, SELF-CARE Condition: Improved Departure-Patient Inst. Decision time for Depature: 14:21 Referrals: ISAAK STEPHEN MD (PCP) Primary Care Physician BRUCE FIERRO DO (Family) Primary Care Physician Patient Instructions: Dehydration, Adult (DC), Urinary Tract Infection, Adult (DC) Add. Discharge Instructions: All discharge instructions reviewed with patient and/or family. Voiced und erstanding. Medications as instructed. Drink plenty of fluids. Rest. Follow- up with Dr. Fierro as previously scheduled. Return to the emergency department for worsened vomiting, fever, pain, vaginal bleeding, dizziness, or any other concerns. Scripts Ondansetron (Ondansetron Odt) 4 Mg Tab.rapdis 4 MG PO Q6H PRN for NAUSEA/VOMITING, #10 TAB 0 Refills Prov: NOHEMI NAVARRO 10/16/18 Famotidine (Pepcid) 20 Mg Tablet 20 MG PO BID PRN for NAUSEA/VOMITING, #20 TAB 0 Refills Prov: NOHEMI NAVARRO 10/16/18 Cefdinir (Cefdinir) 300 Mg Capsule 300 MG PO BID, #14 CAP 0 Refills Prov: NOHEMI NAVARRO 10/16/18 NOHEMI NAVARRO Oct 16, 2018 13:54
[2018-10-16 14:12] LABS: BACTERIA,URINE LARGE /HPF; WBC,URINE 50-100 /HPF
[2018-10-16] MEDS ORDERED: FAMO-119 PO (14:27)
[2018-10-16] MEDS ORDERED: CEFD300C3 PO (14:27)
[2018-10-16] MEDS ORDERED: ONDA4TAB11 PO (14:27)
[2018-10-16] MEDS ORDERED: cefTRIAXone FOR IV USE 1,000 MG in WATER (STERILE) FOR INJECTION 10 ML IV ONE (14:30)
[2018-10-16 15:22] VITALS: BP 105/71
== END 2018-10-16 15:22 | disposition home or self-care (01) ==
LOC: EDUNIT# 12:55 → ER 12:58
DX: O23.41 Unspecified infection of urinary tract in pregnancy, first trimester (principal); O99.281 Endocrine, nutritional and metabolic diseases complicating pregnancy, first trimester; E86.9 Volume depletion, unspecified; O99.341 Other mental disorders complicating pregnancy, first trimester; F41.9 Anxiety disorder, unspecified; Z88.0 Allergy status to penicillin; Z88.8 Allergy status to other drugs, medicaments and biological substances; Z90.89 Acquired absence of other organs; Z80.3 Family history of malignant neoplasm of breast; Z80.0 Family history of malignant neoplasm of digestive organs; Z80.1 Family history of malignant neoplasm of trachea, bronchus and lung; Z82.49 Family history of ischemic heart disease and other diseases of the circulatory system; Z3A.10 10 weeks gestation of pregnancy
CPT/HCPCS: 36415; 80053; 81000; 83690; 84702; 85025; 86141; 87088

== ENCOUNTER 2018-10-28 15:15 | Emergency (ER) | payer MEDICAID ==
[~2018-10-28] VITALS: Ht 162.6 cm; Wt 59.4 kg
[~2018-10-28 15:15] MED LIST changes: +CEFD300C3 PO; +FAMO-119 PO; +ONDA4TAB11 PO
[2018-10-28] MEDS ORDERED: DOXY1TAB6 PO (15:47)
[2018-10-28] MEDS ORDERED: PARO12.519 PO (15:47)
[2018-10-28] MEDS ORDERED: LACTATED RINGERS 1,000 ML IV ONE (15:55)
[2018-10-28 16:25] LABS: BASOPHILS % (AUTO) 0 % (0-10); EOSINOPHILS % (AUTO) 0 % (0-10); HEMATOCRIT 41 % (35-52); HEMOGLOBIN 14.3 G/DL (11.5-16.0); LYMPHOCYTES # (AUTO) 2.1 X 10^3 (1.0-4.0); LYMPHOCYTES % (AUTO) 21 % (12-44); MEAN CORPUSCULAR HEMOGLOBIN 29 PG (25-34); MEAN CORPUSCULAR HGB CONC 35 G/DL (32-36); MEAN CORPUSCULAR VOLUME 84 FL (80-99); MEAN PLATELET VOLUME 10.8 FL (7.4-10.4); MONOCYTES # (AUTO) 0.7 X 10^3 (0.0-1.0); MONOCYTES % (AUTO) 7 % (0-12); NEUTROPHILS % (AUTO) 72 % (42-75); PLATELET COUNT 209 10^3/uL (130-400); RED CELL DISTRIBUTION WIDTH 13.9 % (10.0-14.5); WHITE BLOOD COUNT 9.8 10^3/uL (4.3-11.0)
[2018-10-28] MEDS ORDERED: PROMETHAZINE INJ 25 MG/ML (PHENERGAN) AMP IVP ONE (16:30)
[2018-10-28 16:38] LABS: BILIRUBIN,URINE NEGATIVE (NEGATIVE); CLARITY,URINE CLEAR; COLOR,URINE YELLOW; GLUCOSE, URINE (UA) NEGATIVE (NEGATIVE); KETONES,URINE 1+ (NEGATIVE); LEUKOCYTE ESTERASE ,URINE 2+ (NEGATIVE); NITRITE,URINE NEGATIVE (NEGATIVE); PH,URINE 6 (5-9); PROTEIN,URINE 2+ (NEGATIVE); UROBILINOGEN,URINE NORMAL (NORMAL)
[2018-10-28 16:46] LABS: ALANINE AMINOTRANSFERASE 25 U/L (0-55); ALBUMIN 4.5 GM/DL (3.2-4.5); ALKALINE PHOSPHATASE 67 U/L (40-136); BILIRUBIN,TOTAL 0.5 MG/DL (0.1-1.0); BUN/CREATININE RATIO 12; CALCIUM 9.9 MG/DL (8.5-10.1); CARBON DIOXIDE 25 MMOL/L (21-32); CHLORIDE 104 MMOL/L (98-107); CREATININE SERUM 0.73 MG/DL (0.60-1.30); GFR ESTIMATED > 60; GLUCOSE 92 MG/DL (70-105); MAGNESIUM 2.1 MG/DL (1.6-2.4); POTASSIUM 3.5 MMOL/L (3.6-5.0); SODIUM 138 MMOL/L (135-145); TOTAL PROTEIN 7.9 GM/DL (6.4-8.2)
[2018-10-28 16:51] LABS: BACTERIA,URINE TRACE /HPF
[2018-10-28] MEDS ORDERED: CEPH-507 PO (17:27)
--- NOTE | 2018-10-28 17:27 | ED GI ---
General Chief Complaint: Abdominal/GI Problems Stated Complaint: VOMITTING SINCE YESTERDAY, HEADACHE, 12 WKS PREGNA Nursing Triage Note: ROSITA STATES THAT SHE HAS NOT BEEN ABLE TO KEEP ANY FOOD OR LIQUIDS DOWN SINCE YESTERDAY. SHE IS ALREADY TAKING ZOFRAN, PEPCID AND BONJESTIN. SHE IS ALSO NOW HAVING HEADACHES. SHE HAS TAKEN TYLENOL FOR THIS WITHOUT HELP. Sepsis Screen: No Definite Risk Source of Information: Patient Exam Limitations: No Limitations Allergies and Home Medications Allergies Coded Allergies: Penicillins (Verified Allergy, Mild, 08/05/12) ibandronate sodium (Verified Allergy, Unknown, 05/14/16) Home Medications Cephalexin 500 Mg Capsule, 500 MG PO TID Prescribed by: JARRETT OLSON on 10/28/18 172 Famotidine 20 Mg Tablet, 20 MG PO BID PRN for NAUSEA/VOMITING Prescribed by: NOHEMI NAVARRO on 10/16/18 142 Ondansetron 4 Mg Tab.rapdis, 4 MG PO Q6H PRN for NAUSEA/VOMITING Prescribed by: NOHEMI NAVARRO on 10/16/18 1427 Past Urpyzfk-Xojqsy-Mezwjt Hx Patient Social History Alcohol Use: Denies Use Recreational Drug Use: No Smoking Status: Never a Smoker 2nd Hand Smoke Exposure: No Recent Foreign Travel: No Contact w/Someone Who Travel: No Recent Infectious Disease Expo: No Recent Hopitalizations: No Immunizations Up To Date Date of Influenza Vaccine: Nov 21, 2016 Seasonal Allergies Seasonal Allergies: No Past Medical History Surgeries: Yes (BILAT INGUINAL HERNIAS, TUBES IN EARS) Adenoidectomy, Gallbladder, Tonsillectomy Respiratory: No Cardiac: No Neurological: No Reproductive Disorders: Yes Female Reproductive Disorders: Menstrual Problems Genitourinary: No Gastrointestinal: Yes Gall Bladder Disease Musculoskeletal: No Endocrine: No HEENT: Yes (WEARS GLASSES) Cancer: No Psychosocial: Yes Anxiety Integumentary: No 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 0oz. 59.442656qm; 22.1 BMI Method:Actual Progress/Results/Core Measures Results/Orders Lab Results Laboratory Tests Test 10/28/18 16:12 10/28/18 16:19 Range/Units Urine Color YELLOW Urine Clarity CLEAR Urine pH 6 5-9 Urine Specific [place] 1.025 H 1.016-1.022 Urine Protein 2+ H NEGATIVE Urine Glucose (UA) NEGATIVE NEGATIVE Urine Ketones 1+ H NEGATIVE Urine Nitrite NEGATIVE NEGATIVE Urine Bilirubin NEGATIVE NEGATIVE Urine Urobilinogen NORMAL NORMAL MG/DL Urine Leukocyte Esterase 2+ H NEGATIVE Urine RBC (Auto) NEGATIVE NEGATIVE Urine RBC NONE /HPF Urine WBC 10-25 H /HPF Urine Squamous Epithelial Cells 10-25 H /HPF Urine Crystals NONE /LPF Urine Bacteria TRACE /HPF Urine Casts NONE /LPF Urine Mucus MODERATE H /LPF Urine Culture Indicated YES White Blood Count 9.8 4.3-11.0 10^3/uL Red Blood Count 4.95 4.35-5.85 10^6/uL Hemoglobin 14.3 11.5-16.0 G/DL Hematocrit 41 35-52 % Mean Corpuscular Volume 84 80-99 FL Mean Corpuscular Hemoglobin 29 25-34 PG Mean Corpuscular Hemoglobin Concent 35 32-36 G/DL Red Cell Distribution Width 13.9 10.0-14.5 % Platelet Count 209 130-400 10^3/uL Mean Platelet Volume 10.8 H 7.4-10.4 FL Neutrophils (%) (Auto) 72 42-75 % Lymphocytes (%) (Auto) 21 12-44 % Monocytes (%) (Auto) 7 0-12 % Eosinophils (%) (Auto) 0 0-10 % Basophils (%) (Auto) 0 0-10 % Neutrophils # (Auto) 7.0 1.8-7.8 X 10^3 Lymphocytes # (Auto) 2.1 1.0-4.0 X 10^3 Monocytes # (Auto) 0.7 0.0-1.0 X 10^3 Eosinophils # (Auto) 0.0 0.0-0.3 10^3/uL Basophils # (Auto) 0.0 0.0-0.1 10^3/uL Sodium Level 138 135-145 MMOL/L Potassium Level 3.5 L 3.6-5.0 MMOL/L Chloride Level 104 98-107 MMOL/L Carbon Dioxide Level 25 21-32 MMOL/L Anion Gap 9 5-14 MMOL/L Blood Urea Nitrogen 9 7-18 MG/DL Creatinine 0.73 0.60-1.30 MG/DL Estimat Glomerular Filtration Rate > 60 BUN/Creatinine Ratio 12 Glucose Level 92 70-105 MG/DL Calcium Level 9.9 8.5-10.1 MG/DL Corrected Calcium 9.5 8.5-10.1 MG/DL Magnesium Level 2.1 1.6-2.4 MG/DL Total Bilirubin 0.5 0.1-1.0 MG/DL Aspartate Amino Transf (AST/SGOT) 17 5-34 U/L Alanine Aminotransferase (ALT/SGPT) 25 0-55 U/L Alkaline Phosphatase 67 40-136 U/L Total Protein 7.9 6.4-8.2 GM/DL Albumin 4.5 3.2-4.5 GM/DL My Orders Orders - JARRETT FRIEDMAN MD Cbc With Automated Diff (10/28/18 15:55) Comprehensive Metabolic Panel (10/28/18 15:55) Magnesium (10/28/18 15:55) Ed Iv/Invasive Line Start (10/28/18 15:55) Lactated Ringers (Lr 1000 Ml Iv Solution (10/28/18 15:55) Promethazine Injection (Phenergan Injec (10/28/18 16:30) Ua Culture If Indicated (10/28/18 16:35) Urine Culture (10/28/18 16:12) Medications Given in ED Current Medications Medications Dose Ordered Sig/Kraig Route Start Time Stop Time Status Last Admin Dose Admin Lactated Ringer's 1,000 ml @ 0 mls/hr Q0M ONCE IV 10/28/18 15:55 10/28/18 15:56 DC 10/28/18 16:24 0 MLS/HR Promethazine HCl 25 mg ONCE ONCE IVP 10/28/18 16:30 10/28/18 16:31 DC 10/28/18 16:39 25 MG Vital Signs/I&O 10/28/18 15:40 Temp 97.2 Pulse 81 Resp 20 B/P (MAP) 107/80 (89) Pulse Ox 97 Blood Pressure Mean: 89 Departure Impression Primary Impression: Acute headache Qualified Codes: R51 - Headache Additional Impressions: Nausea and vomiting Qualified Codes: R11.2 - Nausea with vomiting, unspecified Qualified Codes: Z3A.12 - 12 weeks gestation of Urinary tract infection Qualified Codes: N39.0 - Urinary tract infection, site not specified Disposition: 01 HOME, SELF-CARE Condition: Improved Departure-Patient Inst. Decision time for Depature: 17:24 Referrals: ISAAK STEPHEN MD (PCP) Primary Care Physician BRUCE ARELLANO DO (Family) Primary Care Physician Patient Instructions: Hyperemesis Gravidarum Add. Discharge Instructions: You may continue using your nausea medications as prescribed. Drink plenty of clear liquids. Advance your diet as tolerated with small quantities of bland food. Eat healthy snacks throughout the day and continuously sipped on liquids throughout the day. This will help prevent nausea. You may take Tylenol (acetaminophen) up to 1000 mg every 6 hours as needed for headache. This is safe in . Return to care if you have any further problems or concerns. Complete your antibiotic as prescribed. Follow-up with your partner alliance manager or primary care provider early next week to review urine culture results. All discharge instructions reviewed with patient and/or family. Voiced understanding. Scripts Cephalexin (Keflex) 500 Mg Capsule 500 MG PO TID, #20 CAP Prov: JARRETT FRIEDMAN MD 10/28/18 Copy Copies To 1: BRUCE ARELLANO JOSHUA T MD Oct 28, 2018 17:27
[2018-10-28 17:44] VITALS: BP 107/80
== END 2018-10-28 17:47 | disposition home or self-care (01) ==
LOC: EDUNIT# 15:15 → ER 15:17
DX: O26.891 Other specified pregnancy related conditions, first trimester (principal); R51 Headache; O21.0 Mild hyperemesis gravidarum; O23.41 Unspecified infection of urinary tract in pregnancy, first trimester; O99.341 Other mental disorders complicating pregnancy, first trimester; F41.9 Anxiety disorder, unspecified; Z88.0 Allergy status to penicillin; Z3A.12 12 weeks gestation of pregnancy; Z88.8 Allergy status to other drugs, medicaments and biological substances; Z90.49 Acquired absence of other specified parts of digestive tract; Z90.89 Acquired absence of other organs; Z82.49 Family history of ischemic heart disease and other diseases of the circulatory system; Z80.3 Family history of malignant neoplasm of breast; Z80.0 Family history of malignant neoplasm of digestive organs; Z80.1 Family history of malignant neoplasm of trachea, bronchus and lung
CPT/HCPCS: 36415; 80053; 81000; 83735; 85025; 87088

== ENCOUNTER → 2018-12-20 | Outpatient (CLI) | payer MEDICAID ==
[~2018-12-20] MED LIST changes: +CEPH-507 PO; +DOXY1TAB6 PO; +PARO12.519 PO
--- NOTE | 2018-12-20 16:31 | Diagnostic Imaging Report ---
INDICATION: survey. TECHNIQUE: Multiple real-time grayscale images were obtained over the gravid uterus. COMPARISON: None during this . FINDINGS: A single live intrauterine fetus is seen in cephalic presentation. Amniotic fluid is qualitatively normal. Placenta is anterior with no evidence of previa. heart rate is 153 bpm. The fetus measured 20 weeks 1 day by composite measurements. survey showed normal-appearing kidneys, bladder, stomach, and intracranial ventricles. Normal four-chamber heart view is seen. Normal three-vessel cord and cord insertion were seen. spine appear unremarkable. Cervical length is 3.3 cm. There is no overt adnexal mass or free fluid. The adnexal regions were not well visualized. Biometrical measurements are as follows: Biparietal 4.79 cm, age 20 weeks 4 days. Head circumference 17.82 cm, age 20 weeks 2 days. Abdominal circumference 14.48 cm, age 19 weeks 6 days. Femur length 3.05 cm, age 19 weeks 4 days. Sonographic estimate age: 20 weeks 1 days. Sonographic estimated date of delivery: 05/08/2019. Estimated Weight: 309 gm (+/- 45 gm). LMP percentile: 6%. heart rate: 153 beats per minute. number: 1 of 1. IMPRESSION: Single live intrauterine fetus measuring 20 weeks 1 day in size. There were no detectable abnormalities at this time. Dictated by: Dictated on workstation # [id number]
== END ==
LOC: RAD 15:01
PROVIDERS: ATTEND Nurse Practitioner Women's Health
DX: Z36.89 Encounter for other specified antenatal screening (principal); Z3A.20 20 weeks gestation of pregnancy
CPT/HCPCS: 76805

== ENCOUNTER 2019-02-01 12:50 | Outpatient (CLI) | payer MEDICAID ==
[~2019-02-01] VITALS: Ht 167.6 cm; Wt 69.1 kg
--- NOTE | 2019-02-01 12:35 | NUR ---
GERONIMO SNYDER presented to unit via AMBULATORY from HOME, accompanied by FAMILY MEMBER, with c/o CONTRACTIONS. GERONIMO SNYDER weighed, gowned, voided, and to bed. EFHM and TOCO applied, VS taken. GERONIMO SNYDER oriented to bed controls, call light, TV, heat, and A/C controls.
[2019-02-01 12:56] VITALS: BP 120/73
[2019-02-01 13:09] LABS: BILIRUBIN,URINE NEGATIVE (NEGATIVE); CLARITY,URINE CLEAR; COLOR,URINE YELLOW; GLUCOSE, URINE (UA) NEGATIVE (NEGATIVE); KETONES,URINE NEGATIVE (NEGATIVE); LEUKOCYTE ESTERASE ,URINE TRACE (NEGATIVE); NITRITE,URINE NEGATIVE (NEGATIVE); PROTEIN,URINE NEGATIVE (NEGATIVE)
[2019-02-01 13:16] LABS: BACTERIA,URINE TRACE /HPF
[2019-02-01 13:32] VITALS: BP 120/73
--- NOTE | 2019-02-01 13:38 | NUR ---
DR. JAIN NOTIFIED OF PT'S ARRIVAL, GESTATION, C/O, SVE, REVIEW OF STRIP, B/P, UA RESULTS. ORDERS RECEIVED FOR DISCHARGE HOME.
[2019-02-01] MEDS ORDERED: PREN-37 PO (13:45)
--- NOTE | 2019-02-01 13:51 | NUR ---
DISCHARGE PAPERS PROVIDED AND REVIEWED WITH PT, PT VERBALIZES UNDERSTANDING AND DENIES ANY QUESTIONS AT THIS TIME. PAPER SIGNED.
--- NOTE | 2019-02-01 13:53 | NUR ---
PT DISCHARGED FROM -[facility] TO PERSONAL AUTO VIA AMBULATORY IN STABLE CONDITION ACC BY MOTHER.
--- NOTE | 2019-02-02 08:22 | Physician Query-Final Dx ---
IMAN MATHEWS 02/02/19 0822: Clinic Account Progress/Dx Physician Query: Please give diagnosis Please include # weeks gestation Date of Service Feb 01, 2019 at 12:50 HORTENSIA JAIN MD 02/02/19 1308: Clinic Account Progress/Dx DIAGNOSIS: Diagnosis 26 weeks with false labor IMAN MATHEWS Feb 02, 2019 08:22 HORTENSIA PEREZ MD Feb 02, 2019 13:08 POS
== END 2019-02-01 13:53 | disposition home or self-care (01) ==
LOC: WSo 12:50 → LDRP 12:51 → WSo 13:53
PROVIDERS: ATTEND Obstetrics & Gynecology
DX: O47.02 False labor before 37 completed weeks of gestation, second trimester (principal); Z3A.26 26 weeks gestation of pregnancy
CPT/HCPCS: 81000; 99213

== ENCOUNTER 2019-04-23 22:28 | Inpatient (IN) | payer MEDICAID ==
[~2019-04-23] VITALS: Ht 167 cm; Wt 77.2 kg
[~2019-04-23 22:28] MED LIST changes: +PREN-37 PO
--- NOTE | 2019-04-23 22:30 | NUR ---
GERONIMO SNYDER presented to unit via from ED, accompanied by s/o, with c/o POSS CONTRACTIONS 37 WKS PREG. GERONIMO SNYDER weighed, gowned, voided, and to bed. EFHM and TOCO applied, VS taken. GERONIMO SNYDER oriented to bed controls, call light, TV, heat, and A/C controls.
[2019-04-23] MEDS ORDERED: FLUO10CA30 PO (23:04)
[2019-04-23] MEDS ORDERED: OMEP40CA27 PO (23:06)
[2019-04-23 23:18] VITALS: BP 134/70
[2019-04-23 23:19] LABS: BILIRUBIN,URINE NEGATIVE (NEGATIVE); CLARITY,URINE CLEAR; COLOR,URINE YELLOW; GLUCOSE, URINE (UA) NEGATIVE (NEGATIVE); KETONES,URINE NEGATIVE (NEGATIVE); LEUKOCYTE ESTERASE ,URINE 1+ (NEGATIVE); NITRITE,URINE NEGATIVE (NEGATIVE); PH,URINE 5.5 (5-9); PROTEIN,URINE NEGATIVE (NEGATIVE)
[2019-04-23 23:29] LABS: BACTERIA,URINE FEW /HPF
[2019-04-23] MEDS ORDERED: D5 LR IV SOLUTION 1,000 ML IV ONE (23:53)
[2019-04-24] VITALS (62 sets, daily range): BP systolic 84–148; BP diastolic 48–83
[2019-04-24] MEDS: D5 LR IV SOLUTION 1,000 ML IV SCH ×3 (00:13→12:07)
[2019-04-24 00:30] LABS: BASOPHILS % (AUTO) 0 % (0-10); EOSINOPHILS # (AUTO) 0.1 10^3/uL (0.0-0.3); EOSINOPHILS % (AUTO) 1 % (0-10); HEMATOCRIT 31 % (35-52); HEMOGLOBIN 10.2 G/DL (11.5-16.0); LYMPHOCYTES # (AUTO) 2.2 X 10^3 (1.0-4.0); LYMPHOCYTES % (AUTO) 20 % (12-44); MEAN CORPUSCULAR HEMOGLOBIN 25 PG (25-34); MEAN CORPUSCULAR HGB CONC 33 G/DL (32-36); MEAN CORPUSCULAR VOLUME 76 FL (80-99); MONOCYTES # (AUTO) 0.9 X 10^3 (0.0-1.0); MONOCYTES % (AUTO) 9 % (0-12); NEUTROPHILS # (AUTO) 7.4 X 10^3 (1.8-7.8); NEUTROPHILS % (AUTO) 70 % (42-75); PLATELET COUNT 135 10^3/uL (130-400); RED CELL DISTRIBUTION WIDTH 14.2 % (10.0-14.5); WHITE BLOOD COUNT 10.6 10^3/uL (4.3-11.0)
[2019-04-24] MEDS ORDERED: SUFENTA 0.6MCG/ML BUPIVA 0.125 100 ML ONE (04:55)
[2019-04-24] MEDS ORDERED: BUPIVACAINE 0.25% 30 ML (SENSORCAINE) VIAL ONE (05:52)
[2019-04-24] MEDS ORDERED: fentaNYL INJECTION 100 MCG/2 ML AMP ONE (05:52)
[2019-04-24] MEDS ORDERED: LACTATED RINGERS 1,000 ML IV SCH ×2 (07:15→12:26)
[2019-04-24] MEDS ORDERED: OXYTOCIN PRE-MIX DRIP 500 ML IV SCH ×2 (08:46→14:36)
[2019-04-24] MEDS ORDERED: LIDOCAINE/EPI 2% 1:200,00 (XYLOCAINE) 10 ML VIAL ONE (11:53)
[2019-04-24] MEDS ORDERED: ONDANSETRON 4 MG/2 ML (SDV) Z0FRAN IV PRN (12:30)
[2019-04-24] MEDS ORDERED: EPIDURAL (SUFENTA 0.6MCG/ML BUPIVA 0.125%) 100 ML BAG EPI PRN (12:30)
[2019-04-24] MEDS ORDERED: diphenhydrAMINE 50 MG/ML INJ (BENADRYL) IV PRN (12:30)
[2019-04-24] MEDS ORDERED: METOCLOPRAMIDE INJ 10 MG/2 ML (REGLAN) IV PRN (12:30)
[2019-04-24] MEDS ORDERED: NALOXONE 0.4 MG/ML 1 ML (NARCAN) VIAL IV PRN ×2 (12:30)
[2019-04-24] MEDS ORDERED: BENZOCAINE/MENTHOL (DERMOPLAST) 60 ML CAN TP PRN (14:45)
[2019-04-24] MEDS ORDERED: HYDROcodone/APAP 5 MG/325 MG (LORTAB) TAB PO PRN (14:45)
[2019-04-24] MEDS ORDERED: DIBUCAINE (NUPERCAINAL) 1% OINT 30 GM TOP PRN (14:45)
[2019-04-24] MEDS ORDERED: TETANUS,DIPTH,PERTUSS P/F (BOOSTRIX) 0.5 ML VIAL IM ONE (14:45)
[2019-04-24] MEDS ORDERED: MEASLES,MUMPS,RUBELLA 1 EA INJ SQ ONE (14:45)
[2019-04-24] MEDS ORDERED: WITCH HAZEL(TUCKS) 40 EA JAR TOP PRN (14:45)
--- NOTE | 2019-04-24 16:18 | History & Physical-OB ---
OB - Chief Complaint & HPI Date/Time Date of Admission: Date of Admission: Apr 23, 2019 at 23:58 Date seen by a Provider: Apr 24, 2019 Time Seen by a Provider: 10:45 Chief Complaint/History OB-Reason for Admission/Chief: Onset of Labor Hx : 2 Hx Para: 1 Expected Date of Delivery: May 09, 2019 Gestational Age in Weeks: 37 Gestational Age in Days: 6 Admission Nurse Assessment Rev: Yes Allergies and Home Medications Allergies Coded Allergies: Penicillins (Verified Allergy, Mild, 08/05/12) ibandronate sodium (Verified Allergy, Unknown, 05/14/16) Home Medications Fluoxetine HCl 10 Mg Capsule, 10 MG PO DAILY, (Reported) Omeprazole 40 Mg Capsule.dr, 40 MG PO PRN, (Reported) Vit/Iron Fumarate/FA 1 Each Tablet, 1 EACH PO DAILY, (Reported) Patient Home Medication List Home Medication List Reviewed: Yes OB - History Hx of Present Care: Yes Ultrasounds: Normal mid trimester US Obstetrical Complications: None Medical Complications: None Obstetrical History Hx : 2 Hx Para: 1 Delivery History 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) Adverse Rxn to Tranfusion: No Patient Past Medical History Platelet secretory disorder, Fibromyalgia Social History/Family History HIV/AIDS: No Recent Infectious Disease Expo: No Sexually Transmitted Disease: No Alcohol Use: Denies Use Recreational Drug Use: No 2nd Hand Smoke Exposure: No Immunizations Hepatitis A: Yes Hepatitis B: Yes Date of Influenza Vaccine: Dec 14, 2018 OB - Admission Exam Physical Exam Vitals: Vital Signs 04/24/19 04/24/19 12:42 14:02 Temp 36.7 Pulse 93 Resp 18 B/P (MAP) 132/81 (98) Pulse Ox 100 O2 Delivery Room Air HEENT: NCAT Heart: Rhythm Normal Lungs: Clear Abdomen: Gravid Extremities: Normal Reflexes: Normal Cervical Dilatation: 5cm Effacement: 75% Station: -1 Membranes: Intact Heart Rate: 130's Accelerations: Accelerations Present Decelerations: No Decelerations Short Term Variability: Present Snf Variability: Average (6-25) Contractions on Admission: 6-10 Minutes Apart Labs Laboratory Tests Test 04/23/19 22:45 04/24/19 00:10 Range/Units Urine Color YELLOW Urine Clarity CLEAR Urine pH 5.5 5-9 Urine Specific [place] <=1.005 1.016-1.022 Urine Protein NEGATIVE NEGATIVE Urine Glucose (UA) NEGATIVE NEGATIVE Urine Ketones NEGATIVE NEGATIVE Urine Nitrite NEGATIVE NEGATIVE Urine Bilirubin NEGATIVE NEGATIVE Urine Urobilinogen 0.2 < = 1.0 MG/DL Urine Leukocyte Esterase 1+ H NEGATIVE Urine RBC (Auto) NEGATIVE NEGATIVE Urine RBC NONE /HPF Urine WBC 5-10 H /HPF Urine Squamous Epithelial Cells 5-10 /HPF Urine Crystals NONE /LPF Urine Bacteria FEW H /HPF Urine Casts NONE /LPF Urine Mucus NEGATIVE /LPF Urine Culture Indicated YES White Blood Count 10.6 4.3-11.0 10^3/uL Red Blood Count 4.13 L 4.35-5.85 10^6/uL Hemoglobin 10.2 L 11.5-16.0 G/DL Hematocrit 31 L 35-52 % Mean Corpuscular Volume 76 L 80-99 FL Mean Corpuscular Hemoglobin 25 25-34 PG Mean Corpuscular Hemoglobin Concent 33 32-36 G/DL Red Cell Distribution Width 14.2 10.0-14.5 % Platelet Count 135 130-400 10^3/uL Mean Platelet Volume 13.0 H 7.4-10.4 FL Neutrophils (%) (Auto) 70 42-75 % Lymphocytes (%) (Auto) 20 12-44 % Monocytes (%) (Auto) 9 0-12 % Eosinophils (%) (Auto) 1 0-10 % Basophils (%) (Auto) 0 0-10 % Neutrophils # (Auto) 7.4 1.8-7.8 X 10^3 Lymphocytes # (Auto) 2.2 1.0-4.0 X 10^3 Monocytes # (Auto) 0.9 0.0-1.0 X 10^3 Eosinophils # (Auto) 0.1 0.0-0.3 10^3/uL Basophils # (Auto) 0.0 0.0-0.1 10^3/uL OB - Assessment/Plan/Diagnosis Assessment Assessment: active labor Admission Dx 24yo @37 weeks Active labor GBS neg Admission Status: Inpatient Order (span 2 midnights) Reason for Inpatient Admission: Active labor at term Plan Other Plan Arom and augment with pitocin if necessary BRUCE ARELLANO DO Apr 24, 2019 16:18
[2019-04-24] MEDS: IBUPROFEN 600 MG (MOTRIN) TAB PO SCH ×2 (16:23→21:54)
--- NOTE | 2019-04-24 16:26 | OB Labor & Delivery Record ---
L&D History Date of Service Date of Service: Apr 24, 2019 History Expected Date of Delivery: May 09, 2019 Gestational Age in Weeks: 37 Hx : 2 Hx Para: 1 Complications Events: Routine care Operative Indications (Cesarea: N/A-Vaginal Delivery Intrapartal Events: None L&D Stage1 Stage One Onset of Labor - Date: Apr 24, 2019 Monitors and Tracing Monitor Mode: External Heart Rate: 145 Monitor Accelerations: Uniform Monitor Decelerations: None Station: 0 Semiconductor Manufacturing Technician Variability: Average (6-10) Short Term Variability: Present Presentation: Vertex Vital Signs VS - Last 72 Hours, by Label 04/23/19 04/24/19 04/24/19 04/24/19 23:18 01:00 04:55 04:59 Temp 37.0 36.5 Pulse 97 90 85 Resp 18 18 18 B/P (MAP) 125/70 (88) 119/73 (88) Pulse Ox 99 O2 Delivery Room Air 04/24/19 04/24/19 04/24/19 04/24/19 05:30 05:59 06:04 06:05 Temp 36.5 Pulse 106 96 104 102 B/P (MAP) 109/69 (82) 130/74 (92) 118/68 (85) Pulse Ox 99 99 99 O2 Delivery Room Air Room Air 04/24/19 04/24/19 04/24/19 04/24/19 06:10 06:14 06:17 06:20 Pulse 118 125 113 98 B/P (MAP) 122/78 (93) 118/72 (87) 117/66 (83) 113/70 (84) Pulse Ox 100 100 100 100 O2 Delivery Room Air Room Air Room Air Room Air 04/24/19 04/24/19 04/24/19 04/24/19 06:25 06:31 06:35 06:40 Pulse 84 94 80 77 Resp 18 B/P (MAP) 116/66 (83) 87/53 (64) 87/55 (66) 91/50 (64) Pulse Ox 100 99 100 99 O2 Delivery Room Air Room Air Room Air 04/24/19 04/24/19 04/24/19 04/24/19 06:45 06:51 06:56 07:00 Pulse 69 60 65 65 Resp 18 18 18 18 B/P (MAP) 110/62 (78) 84/48 (60) 112/65 (81) 95/57 (70) Pulse Ox 99 97 100 100 04/24/19 04/24/19 04/24/19 04/24/19 07:04 07:10 07:14 07:20 Pulse 78 74 79 82 Resp 18 18 18 18 B/P (MAP) 101/62 (75) 92/50 (64) 94/55 (68) 112/71 (85) Pulse Ox 99 100 100 100 04/24/19 04/24/19 04/24/19 04/24/19 07:25 07:30 07:36 07:40 Pulse 85 88 83 82 Resp 18 18 18 18 B/P (MAP) 114/70 (85) 98/71 (80) 110/68 (82) 114/65 (81) Pulse Ox 100 100 100 100 04/24/19 04/24/19 04/24/19 04/24/19 07:45 07:50 07:55 08:00 Pulse 84 86 88 88 Resp 18 18 18 18 B/P (MAP) 98/57 (71) 110/58 (75) 101/56 (71) 107/69 (82) Pulse Ox 100 100 100 100 04/24/19 04/24/19 04/24/19 04/24/19 08:05 08:10 08:15 08:20 Pulse 90 86 87 94 Resp 18 18 18 18 B/P (MAP) 108/70 (83) 119/70 (86) 108/62 (77) 106/60 (75) Pulse Ox 100 100 100 100 04/24/19 04/24/19 04/24/19 04/24/19 08:25 08:41 08:47 09:01 Temp 37.2 Pulse 95 94 99 Resp 18 18 18 B/P (MAP) 114/60 (78) 121/69 (86) 120/68 (85) Pulse Ox 100 100 100 04/24/19 04/24/19 04/24/19 04/24/19 09:16 09:33 09:46 10:03 Pulse 93 86 89 85 Resp 18 18 18 18 B/P (MAP) 117/66 (83) 111/68 (82) 104/57 (73) 110/62 (78) Pulse Ox 99 98 97 97 O2 Delivery Room Air Room Air Room Air Room Air 04/24/19 04/24/19 04/24/19 04/24/19 10:18 10:33 10:36 11:12 Temp 36.5 36.6 Pulse 88 90 Resp 18 18 B/P (MAP) 117/74 (88) 125/78 (94) Pulse Ox 99 99 O2 Delivery Room Air Room Air 04/24/19 04/24/19 04/24/19 04/24/19 11:31 11:49 12:02 12:18 Temp 36.7 Pulse 91 80 92 96 Resp 18 18 18 18 B/P (MAP) 121/77 (92) 119/67 (84) 119/75 (90) 117/69 (85) Pulse Ox 97 97 98 98 O2 Delivery Room Air Room Air Room Air Room Air 04/24/19 04/24/19 04/24/19 04/24/19 12:33 12:42 12:48 13:02 Temp 36.7 Pulse 91 80 80 Resp 18 18 18 B/P (MAP) 114/64 (81) 113/67 (82) 106/64 (78) Pulse Ox 98 98 98 O2 Delivery Room Air Room Air Room Air 04/24/19 04/24/19 04/24/19 04/24/19 13:17 13:33 13:48 14:02 Pulse 87 75 106 93 Resp 18 18 18 18 B/P (MAP) 108/70 (83) 108/67 (81) 142/81 (101) 132/81 (98) Pulse Ox 99 98 100 100 O2 Delivery Room Air Room Air Room Air Room Air Rupture of Membranes Spontaneous Ruture of Membrane: No Amniotic Membrane Rupture Time: 1031 Amniotic Membrane Fluid Desc.: Clear Vaginal Bleeding Description: Normal Show Induction/Anesthesia Epidural Cath Placement - Time: 0609 Progress/Notes Patient progressed to complete and +1 station with Pitocin augmentation to max dose of 8 mu L&D Stage2 Stage Two Stage II Date: Apr 24, 2019 Monitors and Tracing Monitor Mode: External Heart Rate: 145 Monitor Accelerations: Uniform Monitor Decelerations: Variable Semiconductor Manufacturing Technician Variability: Average (6-10) Short Term Variability: Present Position: Right Occiput Anterior Presentation: Vertex Cord Descript/Complications Cord Vessel Description: 3 Vessels Delivery Type Delivery Method: Spontaneous Vaginal Anterior Shoulder: Left Episiotomy/Perineal Laceration Laceraction(s)/Extensions: Yes Episiotomy Description: Midline Degree (describe repair) midline episiotomy performed due to tearing noted started at the clitoris, episiotomy repaired using 3-0 and 2-0 vicryl suture in usual fashion. Condition of Delivery 1 minute Comment: 8 5 minute Comment: 9 Notes Live male weight 7lbs 4 oz Condition of Infant Condition of : Living Exam: No Observed Abnormalities Resuscitation Resuscitation: N/A - Spontaneous Resp L&D Stage3 Stage Three Stage III Date: Apr 24, 2019 Pictocin Pitocin Administration mu/min: 8 Pitocin ml/hr: 8 Pitocin Administration Comment: 1318 PITOCIN INCREASED. Placenta Delivery Placenta Delivery: Spontaneous Delivery Summary Summary Estimated blood loss (mL): 300 Attending at delivery: Bruce Arellano DO Condition of Delivery Examined: Cervix Examined, Uterus Explored Post Hemorrhage: No Condition of Mother stable Condition of Infant (s) stable BRUCE ARELLANO DO Apr 24, 2019 16:26
--- NOTE | 2019-04-24 16:35 | NUR ---
REFER TO LABOR FLOW SHEET.
--- NOTE | 2019-04-24 17:55 | NUR ---
PT LYING IN BED. S/O AND MOTHER @ THE BEDSIDE. NO NEEDS VOICED.
[2019-04-24] MEDS: DOCUSATE SODIUM 100 MG (COLACE) CAP PO SCH (21:54)
[2019-04-24] MEDS: CATHETER FLUSH 10 ML SYR IV SCH (21:55)
[2019-04-25] VITALS: BP 120/59
[2019-04-25] MEDS: D5 LR IV SOLUTION 1,000 ML IV SCH (00:06)
[2019-04-25] MEDS: IBUPROFEN 600 MG (MOTRIN) TAB PO SCH ×4 (03:51→20:59)
[2019-04-25 04:00] VITALS: BP_SYST 107; BP_SYST 99; BP_DIAS 62
[2019-04-25 05:34] LABS: BASOPHILS % (AUTO) 0 % (0-10); EOSINOPHILS # (AUTO) 0.1 10^3/uL (0.0-0.3); EOSINOPHILS % (AUTO) 1 % (0-10); HEMATOCRIT 26 % (35-52); LYMPHOCYTES # (AUTO) 2.1 X 10^3 (1.0-4.0); LYMPHOCYTES % (AUTO) 25 % (12-44); MEAN CORPUSCULAR HGB CONC 31 G/DL (32-36); MEAN CORPUSCULAR VOLUME 78 FL (80-99); MEAN PLATELET VOLUME 12.6 FL (7.4-10.4); MONOCYTES # (AUTO) 0.7 X 10^3 (0.0-1.0); MONOCYTES % (AUTO) 8 % (0-12); NEUTROPHILS # (AUTO) 5.6 X 10^3 (1.8-7.8); NEUTROPHILS % (AUTO) 65 % (42-75); PLATELET COUNT 102 10^3/uL (130-400); WHITE BLOOD COUNT 8.6 10^3/uL (4.3-11.0)
[2019-04-25 05:41] LABS: MEAN CORPUSCULAR HEMOGLOBIN 24 PG (25-34)
[2019-04-25] MEDS: PRENATAL VITAMIN 1 EA TAB PO SCH (06:43)
[2019-04-25] MEDS: CATHETER FLUSH 10 ML SYR IV SCH (06:53)
[2019-04-25] MEDS: FERROUS SULF 325 MG (IRON) TAB PO SCH (08:31)
[2019-04-25] MEDS: DOCUSATE SODIUM 100 MG (COLACE) CAP PO SCH ×2 (08:31→20:59)
[2019-04-25 08:32] VITALS: BP 108/70
[2019-04-25] MEDS ORDERED: DIBU30OI TOP (09:24)
[2019-04-25] MEDS ORDERED: BENZ78AE2 TP (09:24)
[2019-04-25] MEDS ORDERED: ACHD5005 PO (09:24)
[2019-04-25] MEDS ORDERED: DOCU-244 PO (09:24)
[2019-04-25] MEDS ORDERED: IBUP-844 PO (09:24)
--- NOTE | 2019-04-25 09:24 | Discharge Inst-Women's Service ---
Discharge Inst-Women's Serv Depart Medication/Instructions New, Converted or Re-Newed RX: RX on Chart Problems Reviewed?: Yes Consults/Follow Up Additional Follow Up: Yes Orders/Referrals Dr. Arellano in 6 weeks Activity Activity: Activity as Tolerated Driving Instructions: No Driving for 1 Week NO SMOKING: NO SMOKING Nothing Inside Vagina: No Douching, No [place], No Tampons Diet Discharge Diet: No Restrictions Symptoms to Report to : Bleeding Excessive, Pain Increased, Fever Over 101 Degrees F, Vaginal Bleeding Increase, Questions/Concerns For Any Problems or Questions: Contact Your Physician BRUCE ARELLANO DO Apr 25, 2019 9:24 am
--- NOTE | 2019-04-25 10:34 | Postpartum Progress Note ---
Note Note Day # 1 Subjective: Patient is without complaints. Ambulating, voiding. Tolerating a regular diet without nausea or vomiting. Normal lochia. Pain is well controlled with oral pain medications. Objective: Physical Exam: General - Alert and oriented, no apparent distress Abdomen - Soft, appropriately tender to palpation, non-distended, fundus firm at umbilicus Extremities - no edema, negative Iris's bilaterally Assessment: PPD 1 NVD Acute blood loss anemia Plan: Routine care. Encourage breast feeding. Encourage ambulation. Ferrous sulfate supplementation. Plan for discharge today if appropriate Vitals - Labs Vital Signs - I&O Vital Signs Date Time Temp Pulse Resp B/P (MAP) Pulse Ox O2 Delivery O2 Flow Rate FiO2 04/25/19 08:32 36.3 88 16 108/70 (83) 99 Room Air 04/25/19 08:00 96 Room Air 04/25/19 04:00 36.7 78 16 99/62 (74) 97 Room Air 04/25/19 00:00 36.1 84 18 120/59 (79) 98 Room Air 04/24/19 21:00 96 Room Air 04/24/19 20:00 37.0 88 16 107/65 (79) 96 Room Air 04/24/19 16:01 97 18 116/67 (83) Room Air 04/24/19 15:46 98 18 113/67 (82) Room Air 04/24/19 15:31 88 18 119/69 (86) Room Air 04/24/19 15:16 36.5 88 18 120/67 (84) Room Air 04/24/19 15:08 36.6 87 18 118/59 (78) Room Air 04/24/19 14:46 36.6 110 18 148/70 (96) 99 Room Air 04/24/19 14:31 110 18 131/64 (86) 100 Room Air 04/24/19 14:16 107 18 128/83 (98) Room Air 04/24/19 14:02 93 18 132/81 (98) 100 Room Air 04/24/19 13:48 106 18 142/81 (101) 100 Room Air 04/24/19 13:33 75 18 108/67 (81) 98 Room Air 04/24/19 13:17 87 18 108/70 (83) 99 Room Air 2/16/20 13:02 80 18 106/64 (78) 98 Room Air 04/24/19 12:48 80 18 113/67 (82) 98 Room Air 04/24/19 12:42 36.7 04/24/19 12:33 91 18 114/64 (81) 98 Room Air 04/24/19 12:18 96 18 117/69 (85) 98 Room Air 04/24/19 12:02 92 18 119/75 (90) 98 Room Air 04/24/19 11:49 80 18 119/67 (84) 97 Room Air 04/24/19 11:31 36.7 91 18 121/77 (92) 97 Room Air 04/24/19 11:12 36.6 04/24/19 10:36 36.5 I & O 04/25/19 07:00 Intake Total 3100 ml Balance 3100 ml Labs Laboratory Tests 04/25/19 05:08: White Blood Count 8.6, Red Blood Count 3.27L, Hemoglobin 8.0#L, Hematocrit 26L, Mean Corpuscular Volume 78L, Mean Corpuscular Hemoglobin 24L, Mean Corpuscular Hemoglobin Concent 31L, Red Cell Distribution Width 14.0, Platelet Count 102L, Mean Platelet Volume 12.6H, Neutrophils (%) (Auto) 65, Lymphocytes (%) (Auto) 25, Monocytes (%) (Auto) 8, Eosinophils (%) (Auto) 1, Basophils (%) (Auto) 0, Neutrophils # (Auto) 5.6, Lymphocytes # (Auto) 2.1, Monocytes # (Auto) 0.7, Eosinophils # (Auto) 0.1, Basophils # (Auto) 0.0 Microbiology 04/23/19 Urine Culture - Final, Complete Normal skin marino BRUCE ARELLANO DO Apr 25, 2019 10:34 am
[2019-04-25 12:02] VITALS: BP 120/75
--- NOTE | 2019-04-25 14:25 | Anesthesia-Regional Post-Op ---
Regional Patient Condition Mental Status: Alert, Oriented x3 Circulation: Same as Pre-Op Headache: Absent Sensation: Full Recovery Motor Block: Absent Post Op Complications Complications None Follow Up Care/Instructions Patient Instructions None needed. Anesthesia/Patient Condition Patient is doing well, C/O minimal back pain which is to be expected, stable vital signs, no apparent adverse anesthesia problems. SAMMI NOEL DO Apr 25, 2019 14:25
[2019-04-25 15:45] VITALS: BP 114/65
[2019-04-25 20:59] VITALS: BP 100/67
[2019-04-26 02:46] VITALS: BP 105/65
[2019-04-26] MEDS: IBUPROFEN 600 MG (MOTRIN) TAB PO SCH ×3 (02:46→14:45)
--- NOTE | 2019-04-26 07:29 | Postpartum Progress Note ---
NEHA ROSADOMED STUDENT 04/26/19 0729: Note Note Day # 2 Subjective: Patient is without complaints. Ambulating, voiding. Tolerating a regular diet without nausea or vomiting. Normal lochia. Pain is well controlled with oral pain medications. Objective: Physical Exam: General - Alert and oriented, no apparent distress Abdomen - Soft, appropriately tender to palpation, non-distended, fundus firm at umbilicus Extremities - no edema, negative Iris's bilaterally Assessment: post- day # 2, status post spontaneous vaginal delivery. Recovering well, hemodynamically stable Acute blood loss anemia Plan: Routine care. Encourage breast feeding. Encourage ambulation. Ferrous sulfate supplementation. Plan for discharge tomorrow Vitals - Labs Vital Signs - I&O Vital Signs Date Time Temp Pulse Resp B/P (MAP) Pulse Ox O2 Delivery O2 Flow Rate FiO2 04/26/19 02:46 36.3 69 18 105/65 (78) 98 Room Air 04/25/19 20:59 36.6 78 18 100/67 (78) 98 Room Air 04/25/19 15:45 36.3 88 18 114/65 (81) 96 Room Air 04/25/19 12:02 36.7 94 18 120/75 (90) 100 Room Air 04/25/19 08:32 36.3 88 16 108/70 (83) 99 Room Air 04/25/19 08:00 96 Room Air Labs Microbiology 04/23/19 Urine Culture - Final, Complete Normal skin marino KINGS ARELLANO DO 04/26/19 0833: Note Note Verification and Attestation of Medical Student E/M Service A medical student performed and documented this service in my presence. I reviewed and verified all information documented by the medical student and made modifications to such information, when appropriate. I personally performed the physical exam and medical decision making. Kings Arellano Apr 26, 2019,08:33 NEHA ROSADO,MED STUDENT Apr 26, 2019 07:29 KINGS ARELLANO DO Apr 26, 2019 08:33
[2019-04-26 08:00] VITALS: BP 110/71
--- NOTE | 2019-04-26 09:00 | NUR ---
A.M. ASSESSMENT COMPLETED. VSS. CARING FOR IN ROOM.
[2019-04-26] MEDS: PRENATAL VITAMIN 1 EA TAB PO SCH (09:21)
[2019-04-26] MEDS: FERROUS SULF 325 MG (IRON) TAB PO SCH (09:21)
[2019-04-26] MEDS: DOCUSATE SODIUM 100 MG (COLACE) CAP PO SCH (09:22)
--- NOTE | 2019-04-26 11:00 | NUR ---
PLAN TO HAVE [employer] FOR LUNCH. CONTINUES TO CARE FOR INFANT IN ROOM. GOOD INTERACTION NOTED.
[2019-04-26 12:00] VITALS: BP 102/64
--- NOTE | 2019-04-26 13:00 | NUR ---
EATING STORK MEAL. PLANNING FOR DISCHARGE TODAY.
--- NOTE | 2019-04-26 14:40 | NUR ---
DISCHARGE INSTRUCTIONS REVIEWED WITH COPY TO PT. RXS GIVEN. STATES UNDERSTANDING OF ALL INSTRUCTIONS AND NEED TO F/U SCHEDULED AND NEEDED.
[2019-04-26 14:50] VITALS: BP 102/64
--- NOTE | 2019-04-26 14:50 | NUR ---
DISMISSED AMB FROM [facility] WITH INFANT IN STABLE CONDITION TO [facility] BY SPOUSE AND JAMES HSU RN.
== END 2019-04-26 14:50 | disposition home or self-care (01) | DRG 806 ==
LOC: LDRP 22:28 → WSo 22:28 → LDRP 23:58
PROVIDERS: ADMIT Obstetrics & Gynecology; ATTEND Obstetrics & Gynecology
PROC: 10E0XZZ Delivery of Products of Conception, External Approach (ICD-10-PCS; principal; 2019-04-24)
PROC: 0W8NXZZ Division of Female Perineum, External Approach (ICD-10-PCS; 2019-04-24)
DX: O99.12 Other diseases of the blood and blood-forming organs and certain disorders involving the immune mechanism complicating childbirth (principal); D69.1 Qualitative platelet defects; O26.893 Other specified pregnancy related conditions, third trimester; M81.0 Age-related osteoporosis without current pathological fracture; O99.89 Other specified diseases and conditions complicating pregnancy, childbirth and the puerperium; M79.7 Fibromyalgia; O99.62 Diseases of the digestive system complicating childbirth; K21.9 Gastro-esophageal reflux disease without esophagitis; O90.81 Anemia of the puerperium; D62 Acute posthemorrhagic anemia; Z37.0 Single live birth; Z3A.37 37 weeks gestation of pregnancy
CPT/HCPCS: 36415; 81000; 85025; 86850; 86900; 86901; 87088; 99212

== ENCOUNTER 2021-08-20 19:08 | Emergency (ER) | payer MEDICAID ==
[~2021-08-20 19:08] MED LIST changes: +ACET-11 PO; -ACET1TAB43 PO; +ACHD5005 PO; +BENZ78AE5 TP; +DIBU30OI TOP; +DOCU-239 PO; +FLUO10CA33 PO; +IBUP-844 PO; +OMEP40CA6 PO; -PARO12.519 PO; +PARO12.528 PO
[2021-08-20] MEDS ORDERED: FAMOTIDINE 20MG/2ML IV (PEPCID) IV STA (19:38)
--- NOTE | 2021-08-20 19:38 | ED Abdominal Pain ---
General Chief Complaint: Abdominal/GI Problems Stated Complaint: R SIDE ABD PAIN Source of Information: Patient Exam Limitations: No Limitations History of Present Illness Date Seen by Provider: Aug 20, 2021 Time Seen by Provider: 19:17 Initial Comments Patient to the ER by private conveyance with her and children chief complaint that she is started having some discomfort superior and lateral to the right side of her umbilicus up into her epigastric region since about 10:00 this morning. Few hours before that she had eaten cereal. Other people had drink the same milk and eating the same cereal without symptoms. No sick contacts. Little bit of nausea no vomiting. She had 3 episodes of nonbloody diarrhea. She does have a history of anxiety on medication for that. She says it really only hurts about a 6 or 7 out of 10 when somebody pushes on it. She has had both umbilical hernia repairs and her gallbladder removed in the past. No trauma. It is not worse with stretching. No fevers chills. No recent travel or drinking from unsafe water sources. Last oral intake was about 2-1/2 hours ago. She has a significant history of anxiety on medications for it. No dysuria. Allergies and Home Medications Allergies Coded Allergies: Penicillins (Verified Allergy, Mild, 08/05/12) ibandronate sodium (Verified Allergy, Unknown, 05/14/16) Patient Home Medication List Home Medication List Reviewed: Yes Benzocaine/Menthol (Dermoplast Pain Relieving Vincent) 78 Gm Aerosol, 0 ML TP UD [place] N for PAIN- SEE INSTRUCTIONS Prescribed by: BRUCE ARELLANO on 04/25/19923 Dibucaine (Dibucaine) 30 Gm Oint, 0 GM TOP UD PRN for PAIN- SEE INSTRUCTIONS Prescribed by: BRUCE ARELLANO on 04/25/19923 Docusate Sodium (Dok) 100 Mg Capsule, 100 MG PO BID PRN for CONSTIPATION-1ST LINE Prescribed by: BRUCE ARELLANO on 04/25/19923 Fluoxetine HCl (Fluoxetine HCl) 10 Mg Capsule, 10 MG PO DAILY, (Reported) Entered as Reported by: NICKOLAS MONAE on 04/23/192303 Hydrocodone Bit/Acetaminophen (Lortab 5 Mg Tablet) 1 Tab Tab, 1 TAB PO Q4H PRN for PAIN-MODERATE (5-7) Prescribed by: BRUCE ARELLANO on 04/25/19923 Ibuprofen (Ibu) 600 Mg Tablet, 600 MG PO Q6H Prescribed by: BRUCE ARELLANO on 04/25/19923 Omeprazole (Omeprazole) 40 Mg Capsule.dr, 40 MG PO PRN, (Reported) Entered as Reported by: NICKOLAS MONAE on 04/23/19 2306 Vit/Iron Fumarate/FA ( Tablet) 1 Each Tablet, 1 EACH PO DAILY, (Reported) Entered as Reported by: MONCHO FOURNIER on 02/01/19 1345 Review of Systems Review of Systems Constitutional: No chills, No diaphoresis EENTM: No Blurred Vision, No Double Vision Respiratory: Denies Cough, Denies Shortness of Air Cardiovascular: Denies Chest Pain, Denies Edema Gastrointestinal: Denies Constipated; Diarrhea, Nausea; Denies Poor Appetite, Denies Poor Fluid Intake, Denies Vomiting Musculoskeletal: No back pain, No joint pain All Other Systems Reviewed Negative Unless Noted: Yes Past Ftgfvgr-Xdfkit-Ljrugi Hx Patient Social History Tobacco Use?: No Use of E-Cig and/or Vaping dev: No Substance use?: No Seasonal Allergies Seasonal Allergies: No Past Medical History Surgeries: Yes Adenoidectomy, Gallbladder, Tonsillectomy Respiratory: No Cardiac: No Neurological: No Reproductive Disorders: Yes Female Reproductive Disorders: Denies Sexually Transmitted Disease: No HIV/AIDS: No Genitourinary: No Gastrointestinal: Yes (gallstones) Gall Bladder Disease Musculoskeletal: Yes Osteoporosis Endocrine: No HEENT: No Cancer: No Psychosocial: Yes Anxiety Integumentary: No Blood Disorders: Yes (Platelet A disorder) Adverse Reaction/Blood Tranf: No Family Medical History FH: brain tumor GRANDMOTHER, PATERNAL FH: breast cancer GRANDMOTHER, PATERNAL GREAT GRANDMOTHER, MATERNAL GREAT AUNT, MATERNAL FH: colon cancer GRANDFATHER, PATERNAL FH: lung cancer GRANDMOTHER, PATERNAL HYPERFIBRINOGENAEMIA G8 BROTHER Hypertension GRANDMOTHER, MATERNAL No Pertinent Family Hx Physical Exam Vital Signs Capillary Refill : Height/Weight/BMI Height: 5'4.00" Weight: 131lbs. 0oz. [id number]; 27.68 BMI Method:Actual General Appearance: WD/WN, no apparent distress HEENT: PERRL/EOMI, pharynx normal Neck: non-tender, full range of motion, supple Respiratory: lungs clear, normal breath sounds, no respiratory distress, no accessory muscle use Cardiovascular: normal peripheral pulses, regular rate, rhythm Peripheral Pulses: 2+ Radial Pulses (R), 2+ Radial Pulses (L) Gastrointestinal: normal bowel sounds, non tender, soft, no organomegaly, other (Negative for psoas sign, Rovsing sign, McBurney's point tenderness or rebound tenderness. No organomegaly.) Back: normal inspection, no CVA tenderness Neurologic/Psychiatric: alert, normal mood/affect, oriented x 3 Progress/Results/Core Measures Results/Orders Lab Results Laboratory Tests Test 08/20/21 19:35 08/20/21 20:18 Range/Units White Blood Count 8.5 4.3-11.0 10^3/uL Red Blood Count 4.82 3.80-5.11 10^6/uL Hemoglobin 13.8 11.5-16.0 g/dL Hematocrit 40 35-52 % Mean Corpuscular Volume 83 80-99 fL Mean Corpuscular Hemoglobin 29 25-34 pg Mean Corpuscular Hemoglobin Concent 34 32-36 g/dL Red Cell Distribution Width 11.9 10.0-14.5 % Platelet Count 247 130-400 10^3/uL Mean Platelet Volume 10.8 9.0-12.2 fL Immature Granulocyte % (Auto) 0 % Neutrophils (%) (Auto) 52 42-75 % Lymphocytes (%) (Auto) 39 12-44 % Monocytes (%) (Auto) 8 0-12 % Eosinophils (%) (Auto) 1 0-10 % Basophils (%) (Auto) 1 0-10 % Neutrophils # (Auto) 4.4 1.8-7.8 10^3/uL Lymphocytes # (Auto) 3.3 1.0-4.0 10^3/uL Monocytes # (Auto) 0.7 0.0-1.0 10^3/uL Eosinophils # (Auto) 0.1 0.0-0.3 10^3/uL Basophils # (Auto) 0.1 0.0-0.1 10^3/uL Immature Granulocyte # (Auto) 0.0 0.0-0.1 10^3/uL Sodium Level 137 135-145 MMOL/L Potassium Level 3.0 L 3.6-5.0 MMOL/L Chloride Level 103 98-107 MMOL/L Carbon Dioxide Level 20 L 21-32 MMOL/L Anion Gap 14 5-14 MMOL/L Blood Urea Nitrogen 11 7-18 MG/DL Creatinine 0.91 0.60-1.30 MG/DL Estimat Glomerular Filtration Rate 88 BUN/Creatinine Ratio 12 Glucose Level 103 70-105 MG/DL Calcium Level 9.4 8.5-10.1 MG/DL Corrected Calcium 9.2 8.5-10.1 MG/DL Total Bilirubin 0.3 0.1-1.0 MG/DL Aspartate Amino Transf (AST/SGOT) 19 5-34 U/L Alanine Aminotransferase (ALT/SGPT) 25 0-55 U/L Alkaline Phosphatase 82 40-136 U/L C-Reactive Protein High Sensitivity 0.61 H 0.00-0.50 MG/DL Total Protein 7.4 6.4-8.2 GM/DL Albumin 4.2 3.2-4.5 GM/DL Lipase 27 8-78 U/L Urine Color YELLOW Urine Clarity CLEAR Urine pH 6.0 5-9 Urine Specific Cushing >=1.030 1.016-1.022 Urine Protein TRACE H NEGATIVE Urine Glucose (UA) NEGATIVE NEGATIVE Urine Ketones NEGATIVE NEGATIVE Urine Nitrite NEGATIVE NEGATIVE Urine Bilirubin NEGATIVE NEGATIVE Urine Urobilinogen 0.2 < = 1.0 MG/DL Urine Leukocyte Esterase TRACE H NEGATIVE Urine RBC (Auto) NEGATIVE NEGATIVE Urine RBC NONE /HPF Urine WBC 2-5 /HPF Urine Squamous Epithelial Cells 10-25 H /HPF Urine Crystals NONE /LPF Urine Bacteria TRACE /HPF Urine Casts NONE /LPF Urine Mucus LARGE H /LPF Urine Culture Indicated NO My Orders Orders - EITAN MONTAÑO Ua Culture If Indicated (08/20/21 19:11) Urine Bedside (08/20/21 19:11) Cbc With Automated Diff (08/20/21 19:34) Comprehensive Metabolic Panel (08/20/21 19:34) Hs C Reactive Protein (08/20/21 19:34) Lipase (08/20/21 19:34) Ondansetron Injection (Zofran Injectio (08/20/21 19:45) Lidocaine 2% Viscous 15 Ml (Xylocaine Vi (08/20/21 19:45) Antacid Suspension (Mylanta Suspension (08/20/21 19:45) Famotidine Injection (Pepcid Injection) (08/20/21 19:38) Medications Given in ED Current Medications Medications Dose Ordered Sig/Kraig Route Start Time Stop Time Status Last Admin Dose Admin Al Hydrox/Mg Hydrox/Simethicone 30 ml ONCE ONCE PO 08/20/21 19:45 08/20/21 19:46 DC 08/20/21 20:39 30 ML Lidocaine HCl 15 ml ONCE ONCE PO 08/20/21 19:45 08/20/21 19:46 DC 08/20/21 20:38 15 ML Progress Progress Note #1: Time: 19:41 Progress Note Well-appearing, anxious adult with complaints of epigastric and right upper quadrant abdominal discomfort reproducible by direct palpation only. She was nontender on her exam and has a nonsurgical abdomen. She is however tachycardic which could be from anxiety which she clearly is demonstrating. We will get some labs including a lipase and trial some Pepcid IV. We did offer her something for her anxiety which she declined. Progress Note #2: Time: 21:12 Progress Note Patient is not having any pain except when she pushes directly on a spot on her belly. She is probably has a viral colitis. We have given her return precautions as well as offered her some nausea medicine and breakthrough medicines for her anxiety which she declined. Departure Impression Primary Impression: Colitis presumed infectious Disposition: 01 HOME, SELF-CARE Condition: Stable Departure-Patient Inst. Decision time for Depature: 21:16 Referrals: [facility] [place] (PCP) Primary Care Physician BRUCE ARELLANO DO (Family) Primary Care Physician Patient Instructions: Colitis (DC) Add. Discharge Instructions: Drink plenty of fluids. Make sure you are taking in fluids fashion you are losing. Imodium/loperamide 2 tablets followed by 1 tablet every 4 hours afterwards that you are still having loose, watery stools. Gas-X, Tylenol are recommended for abdominal discomfort. Return to the ER promptly if you are having high fever, intractable pain keeping you from walking or other worrisome symptoms. If your symptoms are lasting more than 7 to 10 days then you should follow-up with your primary care doctor to discuss stool cultures. Typically these symptoms are self-contained and your body will take care of the toxin or infection in just a few days. All discharge instructions reviewed with patient and/or family. Voiced understanding. EITAN MONTAÑO J Aug 20, 2021 19:38
[2021-08-20 19:45] LABS: BASOPHILS # (AUTO) 0.1 10^3/uL (0.0-0.1); BASOPHILS % (AUTO) 1 % (0-10); EOSINOPHILS # (AUTO) 0.1 10^3/uL (0.0-0.3); EOSINOPHILS % (AUTO) 1 % (0-10); HEMATOCRIT 40 % (35-52); HEMOGLOBIN 13.8 g/dL (11.5-16.0); LYMPHOCYTES # (AUTO) 3.3 10^3/uL (1.0-4.0); LYMPHOCYTES % (AUTO) 39 % (12-44); MEAN CORPUSCULAR HEMOGLOBIN 29 pg (25-34); MEAN CORPUSCULAR HGB CONC 34 g/dL (32-36); MEAN CORPUSCULAR VOLUME 83 fL (80-99); MEAN PLATELET VOLUME 10.8 fL (9.0-12.2); MONOCYTES # (AUTO) 0.7 10^3/uL (0.0-1.0); MONOCYTES % (AUTO) 8 % (0-12); NEUTROPHILS # (AUTO) 4.4 10^3/uL (1.8-7.8); NEUTROPHILS % (AUTO) 52 % (42-75); PLATELET COUNT 247 10^3/uL (130-400); WHITE BLOOD COUNT 8.5 10^3/uL (4.3-11.0)
[2021-08-20] MEDS ORDERED: ONDANSETRON 4 MG/2 ML (SDV) Z0FRAN IVP ONE (19:45)
[2021-08-20] MEDS ORDERED: ANTACID SUSP 30 ML UDC (MYLANTA) PO ONE (19:45)
[2021-08-20] MEDS ORDERED: LIDOCAINE 2% VISCOUS 15 ML UDC PO ONE (19:45)
[2021-08-20 20:26] LABS: ALBUMIN 4.2 GM/DL (3.2-4.5); BILIRUBIN,TOTAL 0.3 MG/DL (0.1-1.0); CALCIUM 9.4 MG/DL (8.5-10.1); CREATININE SERUM 0.91 MG/DL (0.60-1.30); TOTAL PROTEIN 7.4 GM/DL (6.4-8.2)
[2021-08-20 20:31] LABS: BILIRUBIN,URINE NEGATIVE (NEGATIVE); CLARITY,URINE CLEAR; COLOR,URINE YELLOW; GLUCOSE, URINE (UA) NEGATIVE (NEGATIVE); KETONES,URINE NEGATIVE (NEGATIVE); LEUKOCYTE ESTERASE ,URINE TRACE (NEGATIVE); NITRITE,URINE NEGATIVE (NEGATIVE); PROTEIN,URINE TRACE (NEGATIVE)
[2021-08-20 20:37] LABS: BACTERIA,URINE TRACE /HPF
[2021-08-20 21:31] VITALS: BP 123/79
== END 2021-08-20 21:31 | disposition home or self-care (01) ==
LOC: EDUNIT# 19:08 → ER 19:09
DX: A09 Infectious gastroenteritis and colitis, unspecified (principal)
CPT/HCPCS: 36415; 80053; 81000; 83690; 84703; 85025; 86141